=== PATIENT | male | born 1975 | race Caucasian/White ===

== ENCOUNTER 2024-11-09 16:32 | Emergency (ER) | payer BC, SELFPAY ==
--- OUTSIDE RECORDS SUMMARY | 2024-10-07 07:33 | XMS_ITS | Encounter Summary ---
Author Organization [address] [address] Care Team Providers Care Cooker Casing Name Role Phone Sha Pedroza MD Primary Care Provider [phone] Reason for Visit * Rehab Therapy Cardiac Therapy (Routine) - Authorized Specialty Diagnoses / Procedures Referred By Nicole streeter Referred To Contact CARDIAC REHAB Diagnoses Chronic systolic heart failure (H) [address] [address] Phone: tel: Referral ID Status Reason Start Date Expiration Date V isits Requested Visits Authorized [id number] Authorized 10/03/2024 03/18/2025 36 36 Encounter Details Date Type Department Care Team (Latest Contact Info) Description 10/07/2024 7:33 AM CDT - 10/07/2024 11:59 PM CDT Hospital Encounter [facility] [address] [phone] Xander Byrnes MD [address] [place] [phone] Discharge Disposition: Home or Self Care Social History Tobacco Use Types Packs/Day Years Used Date Smoking Tobacco: Never Assessed Sex and Gender Information Value Date Recorded Sex Assigned at Not on file Legal Sex Male 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 Gender Identity Not on file Sexual Orientation Not on file documented as of this encounter Plan of Treatment Upcoming Encounters Date Type Department Care Team (Late st Contact Info) Description 11/10/2024 1:00 PM CDT Appointment [facility] [address] [place] [phone] Xander Byrnes MD [address] [place] [phone] 11/12/2024 1:00 PM CDT Appointment [facility]monary [address] [phone] Xander Byrnes MD [address] [place] [phone] 11/14/2024 1:00 PM CDT Appointment [facility] [address] [phone] Xander Byrnes MD [address] [place] [phone] 11/19/2024 1:00 PM CDT Appointment [facility] [address] [phone] Xander Byrnes MD [address] [place] [phone] 11/21/2024 1:00 PM CDT Appointment [facility] [address] [phone] Xander Byrnes MD [address] [place] [phone] 11/24/2024 1:00 PM CDT Appointment [facility] [address] [phone] Xander Byrnes MD [address] [place] [phone] 11/26/2024 1:00 PM CDT Appointment [facility] [address] [phone] Xander Byrnes MD [address] [place] [phone] 11/28/2024 3:00 PM CDT Appointment [facility] [address] [phone] Xander Byrnes MD [address] [place] [phone] 12/01/2024 1:00 PM CDT Appointment [facility] [address] [phone] Xander Byrnes MD [address] [place] [phone] 12/03/2024 1:00 PM CDT Appointment [facility] [address] [phone] Xander Byrnes MD [address] [place] [phone] 12/08/2024 1:00 PM CDT Appointment [facility] [address] [phone] Xander Byrnes MD [address] [place] [phone] Scheduled Referrals Name Type Priority Associated Diagnoses Orde r Schedule Cardiac Rehab [employer] Admissions Representative Referral Referral Routine Chronic systolic heart failure (H) Ordered: 09/25/2024 documented as of this encounter Visit Diagnoses Not on filedocumented in this encounter Care Teams Cooker Casing Relationship Specialty [place] [address] [place] [address] PCP - General Family Medicine 10/03/24 documented as of this encounter
--- OUTSIDE RECORDS SUMMARY | 2024-10-07 14:15 | XMS_ITS | Encounter Summary ---
Author Organization [facility] Address [address] [place] [address] Care Team Providers Care Software Security Architect Name Role Phone Elsewhere, Pcp Primary Care Provider Unavailabl e Reason for Visit * Outpatient (Routine) - Closed Specialty Diagnoses / Procedures Referred By Contact Referred To Contact Cardiovascular Diseases / Cardiovascular Disease Diagnoses Arrest Cardiac (HCC) Yudith Childs PSheldonASheldon-Capo [address] [place] [phone] Phone: tel: fax: [facility] Referral ID Status Reason Start Date Expiration Date Visits Re quested Visits Authorized [id number] Closed 08/24/2024 02/23/2026 1 1 Encounter Details Date Type Department Care Team (Latest Contact Info) Description 10/07/2024 2:15 PM CDT Comprehensive Visit Department of Cardiovascular Medicine in [place], [place] [address] [place] [phone] Yudith Childs P.ASheldon-CSehldon [address] [place] [phone] Kendal Huff M.S., [facility] [address] [place] [phone] Arrest Cardiac (HCC) (Primary Dx) Social History Tobacco Use Types Packs/Day Years Used Date Smoking Tobacco: Former Cigarettes 1 29 1 - 2018 Smokeless Tobacco: Former Snuff Comments:Nicotine pouches Alcohol Use Standard Drinks/Week Comments Not Currently 0 (1 standard drink = 0.6 oz pur e alcohol) [facility] Utilities Answer Date Recorded In the past 12 months has e electric, gas, oil, or water company threatened to shut off services in your home? No 09/13/2024 Humiliation, Afraid, Rape, a nd Kick questionnaire Answer Date Recorded Within the last year, have y ou been afraid of your partner or ex-partner? Patient unable to answer 08/22/2024 Within the last year, have y ou been humiliated or emotionally abused in other ways by your partner or ex-partner? Patient unable to answer 08/22/2024 Within the last year, have y ou been kicked, hit, slapped, or otherwise physically hurt by your partner or ex-partner? Patient unable to answer 08/22/2024 Within the last year, have y ou been raped or forced to have any kind of sexual activity by your partner or ex-partner? Patient unable to answer 08/22/2024 Hunger Vital Sign Answer Date Recorded Within the past 12 months, y ou worried that your food would run out before you got the money to buy more. Never true 09/14/19 25 Within the past 12 months, t he food you bought just didn't last and you didn't have money to get more. Never true 09/13/2024 PRAPARE - Transportation Answer Date Re corded In the past 12 months, has l ack of transportation kept you from medical appointments or from getting medications? No 08/18 In the past 12 months, has l ack of transportation kept you from meetings, work, or from getting things needed for daily living? No 09/13/2024 Housing Stability Answer Date Recorded What is your living situation today? 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 REFERRING PROVIDER Yudith Childs P.A.-C. CHIEF COMPLAINT Personal history of cardiac arrest HISTORY OF PRESENT ILLNESS Alexis was kindly referred today by Yudith Childs P.A.-C. due to their personal history of cardiac arrest. Please see the referring provider's consult note for detailed information regarding work-up and diagnosis. Briefly, Alexis presented to the ED with minimal medical history by EMS from his working facility at [employer] on 08/21/2024. 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 By the time help responded he was found unresponsive on the floor. EMS was activated, he received bystander CPR, and he was eventually resuscitated after two rounds of epi and four shocks, as well as amiodarone. Transported to the emergency department in normal sinus rhythm with a solid blood pressure. EKG does not suggest STEMI nor cardiac ischemia. Echocardiogram revealed ejection fraction of 23%. He underwent coronary adonis ogram and revealed no flow-limiting disease. He underwent ICD placement on 08/26/2024. He was referred to genetics to explore a possible genetic etiology. Alexis attended today???s consultation unaccompanied to discuss the genetics and inheritance of heritable cardiomyopathies and arrhythmias as well as available genetic testing. FAMILY HISTORY A detailed family history was obtained from the patient and a pedigree was constructed. The pedigree will be saved as a scanned document and available for viewing under the Media tab of [employer]. Our risk assessment is based upon medical and family history information as provided by the patient, and may change in the future should new information be obtained. Not all families share or have detailed health information. With this in mind, we discussed that it can be difficult to interpret whether there may be family history relevant to genetic risk. This is a limitation in our assessment. Pedigree 10/07/2024 taken by Kendal Huff MS, [facility] Relevant Cardiovascular Summary The family history was non-contributory to today's discussion. There were other no reported sudden deaths, single-vehicle car accidents, drowning incidents, recurrent syncope, implantable devices, cardiomyopathy, arrhythmias, or other symptoms/events suggestive of heritable cardiovascular concerns.Please see complete pedigree for additional detail. Inherited cardiomyopathies and/or arrhythmia conditions are commonly known to have reduced penetrance. Due to reduced penetrance, the lack of a striking family history does not rule out the possibility of a genetic etiology for the patient's cardiac presentation. Consanguinity was denied. IMPRESSION/REPORT/PLAN Arrhythmias are irregular heartbeats that occur when the electrical signals of the heart don't workproperly. This can result in the heart beating too fast (tachycardia), too slow (bradycarida), or irregularly. These can be harmless. However, sometimes these irregular heartbeats can be symptomatic or clinically relevant. Arrhythmias include conditions and rhythms such as Atrial fibrillation, ventricular fibrillation, conduction block, and more ([facility], 202). Symptoms include, but are not limited to, fluttering in the chest, chest pain, and shortness of breath. There are many risk factors for arrhythmia, which includes coronary artery disease, high blood pressure, thyroid disease, sleep apnea, and more ([facility], 202). However, arrhthymias, like card iomyopathies, can sometimes be caused by a single gene predisposition. Genetic testing for these single genes is available for arrhythmias. Sudden Cardiac Arrest Sudden cardiac arrest is the abrupt loss of heart function, breathing and consciousness. This usually results from a problem with the heart's electrical system, disrupting th heart's pumping action and stopping blood flow to the body. The usual cause of sudden cardiac arrest is an abnormal heart rhythm, also called an arrhythmia. Arrhythmias can be brief and harmless, but some types can lead to sudden cardiac arrest ([facility], 202). The most common heart rhythm at the time of cardiac arrest is an arrhythmia in the lower chamber ofthe heart, called the ventricle. Rapid, erratic electrical impulses can cause the ventricles to quiver uselessly, instead of pumping blood (called a ventricle fibrillation). Cardiomyopathy, heart defects present at , and electrical problems in the heart can lead to sudden cardiac arrest ([facility], 2021). We discussed in detail the changes to his lifestyle due to this cardiac arrest and coping with these changes. Alexis expressed disappointment in not being able to do things without being tired and worn out. We discussed that it will take time to recover and to give himself mesha. I offered to send a referral to psychology, but he declined at this time. I stressed that he has been through a huge and life altering event; we will continue to take care of him to help get him back to feeling more normal. It is always ok to need additional help. Alexis expressed understanding and will reach out if he does want additional resources or referrals. GENETIC TESTING Clinical genetic testing is available commercially and risks, benefits, and limitations of genetic testing were discussed. There are active clinical trials for individuals with specific genotypes andcertain genes could impact the risk assessment of their cardiology team. Therefore, detection of a disease causing change in an established cardiomyopathy or arrhythmia related gene has the potentialto guide their medical management making genetic testing reasonable to pursue. We discussed the possible results that could be obtained from a targeted multi-gene panel including the following: Negative: meaning normal or no mutations are identified in the genes that are tested (sequenced). Anegative result decreases the likelihood but does not completely rule out an underlying hereditary etiology to the patient's cardiac disease. In this case, we would recommend that the patient follow-up with their care team for additional discussion and recommendations. Further genetic testing couldbe considered in the future as additional causative genes associated with cardiac disease are identified. Positive: meaning a mutation that is known to be associated with hereditary forms of cardiac disease is identified. We discussed the implications associated with a positive result. Specifically, a positive result could help solidify an explanation for the patient's clinical findings as well as impact how they are managed. If a causative mutation(s) is identified, the results will be discussed andsent to their care team to who would make recommendations on a plan of care. A positive result often has implications for other family members. We would advise the patient on risks to other family members if a positive result is obtained. Variant of uncertain significance (VUS): meaning a change in the DNA sequence of a particular gene was seen but it is not known if it explains the patient's clinical history. Any VUS identified wouldbe reviewed. If there is not an increased concern for the VUS contributing to the patient's symptoms, it was stressed that testing for relatives would not be indicated. Incidental findings: meaning a pathogenic variant(s) unrelated to the patient's symptoms or indication for testing was identified. This variant could have implications for their personal health or family planning. The genes assessed through testing are cardiac disease focused, but can sometimes be associated with other health complications. Genetic testing can also allow for a more cost-effective and informative means to screen family members. If a mutation is identified as the cause of the patient???s symptoms, other family members canbe tested for the mutation to determine whether they require increased cardiac screening. If the familial mutation is not identified in another family member, ongoing clinical screening would not be necessary. Approximate cost and insurance coverage of genetic testing was discussed. [facility] is not involved in the billing for the genetic testing. [employer] is owned by [employer] and the patient may see [facility] listed on their EOB or in communications for their genetic testing. We recommend all questions and correspondence be directed to [facility]'s billing department. All patients in the [place] will receive an email and/or text describing the insurance billing process. An electronic copy of their billing card can be viewed via this link. When a patient's bill is determined to be over $100, each patient will receive an automated call advising them to contact their dedicated billing team with any questions. Patients whose out-of pocket responsibility is determined to be over $250 will receive a live call from [employer]s team to discuss available options which include financial assistance eligibility or appeal opportunities. [employer] billing specialists are happy to work with patients who have any questions or concerns. They can simply call their billing team at [phone] Sunday through Sunday, 5:00 am to 5:00 pm [place], or email anytime at [email or web address] FAMILY SCREENING Given the unclear etiology of Alexis's clinical presentation, any cardiac screening recommendationsfor the patient and their family should be directed by their managing physicians. Anyone experiencing any cardiovascular symptoms should see a automation test developer for further evaluation. This evaluation mayinclude, but is not limited to, an ECG, echocardiogram and stress test. Family members should continue with screening as recommended by their providers. We would be happy to see family members here at [facility] or are available to identify resources closer to the individual's residence. PLAN Alexis elected to pursue the Comprehensive Cardiomyopathy & Arrhythmia Panel through [facility]. Alexis will complete a blood draw today. Results will become available approximately 2-4 weeks from the release of testing. The patient will be contacted with their test results when they become available. Screening and management recommendations will be made for the patient andtheir family members at the time of results disclosure. It was a pleasure to meet Alexis. Patient expressed understanding of this information. The impression and plan were discussed in detail. There were no apparent barriers to learning or understanding. Questions were answered to the best of my ability. I remain available to answer any questions in thefuture via portal message or by phone at . Total Time: 57 minutes documented in this encounter Plan of Treatment Upcoming Encounters Date Type Department Care Team (Late st Contact Info) Description 11/18/2024 8:30 AM CDT Appointment Department of Cardiovascular Diseases in [place], [place] [address] [place] [address] Mark Mckeon M.D. [address] [place] [phone] 11/28/2024 9:30 AM CDT Appointment Department of Cardiovascular Diseases in [place], [place] [address] [place] [phone] Xander Byrnes M.D. [address] [place] [phone] documented as of this encounter Results * [id number] [facility] Comprehensive Panel - Miscellaneous Test (10/08/2024 8:22 AM CDT) Test Name [facility] 10/08/2024 8:22 AM CDT HLS Result Specimen sent out; results to follow DEFAULT 10/08/2024 8:22 AM CDT HLS Blood (Blood, Venous) 10/08/2024 8:22 AM CDT 10/08/2024 8:22 AM CDT us Steve Hoyos M.D. LAB MISC ORDERABLES Final Res ult [facility] [address] [place] [address], [place] HLS [facility] [address] [place] [address] documented in this encounter Visit Diagnoses Diagnosis Arrest Cardiac (HCC)- Primary documented in this encounter Care Teams Software Security Architect Relationship Specialty Start Date End Date Elsewhere, Pcp PCP - General Internal Medicine 08/21/24 documented as of this encounter
--- OUTSIDE RECORDS SUMMARY | 2024-10-07 15:11 | XMS_ITS | Encounter Summary ---
Author Organization [facility] Address [address] [place] [address] Care Team Providers Care Beck Tender Name Role Phone Elsewhere, Pcp Primary Care Provider Unavailabl e Encounter Details Date Type Department Care Team (Latest Contact Info) Description 10/07/2024 3:11 PM CDT - 10/07/2024 11:59 PM CDT Hospital Encounter Department of Laboratory Medicine and Pathology, [facility] in [place], [place] [address] [place] [address] Steve Hoyos M.D. [address] [place] [address] Arrest Cardiac (HCC) Discharge Disposition: Home or Self Care Social History Tobacco Use Types Packs/Day Years Used Date Smoking Tobacco: Former Cigarettes 1 2018 Smokeless Tobacco: Former Snuff Comments:Nicotine pouches Alcohol Use Standard Drinks/Week Comments Not Currently 0 (1 standard drink = 0.6 oz pur e alcohol) [facility] Utilities Answer Date Recorded In the past 12 months has e [employer], oil, or water [employer] threatened to shut off services in your [...] your living situation today? I have a [facility] place to live 09/13/2024 Sex and Gender Information Value Date Recorded Sex Assigned at Male 09/13/2024 9:29 AM CDT Legal Sex Male 4:52 PM MANAGER PET Gender Identity Male 09/13/2024 9:29 AM CDT Sexual Orientation Straight 09/13/2024 9: 29 AM CDT documented as of this encounter Medications at Time of Discharge aspirin 81 mg chewable tablet Chew 1 tablet (81 mg total) daily. 08/28/2024 atorvastatin (Lipitor) 40 mg tablet Take 1 tablet (40 mg total) by mouth at bedtime. 30 tablet 11 08/27/2024 08/27/2025 carvediloL (Coreg) 6.25 mg tablet Take 1 tablet (6.25 mg total) by mouth 2 (two) times a day with meals. 60 tablet 08/27/2024 08/27/2025 empagliflozin (Jardiance) 10 mg tabletIndications :Arrest Cardiac (HCC),Congestive Heart Failure Ejection Fraction Less Than 35 Percent And [place] Heart [employer] Class 2-3 (HCC) Take 1 tablet (10 mg total) by mouth daily before morning meal. 30 tablet 11 08/28/2024 08/28/2025 lisinopriL 20 mg tablet Take 20 mg by mouth daily. 02/22/2024 sildenafiL (Viagra) 100 mg tablet Take 100 mg by mouth at bedtime as needed. 02/22/2024 spironolactone (Aldactone) 25 mg tablet Take 1 tablet (25 mg total) by mouth daily. 30 tablet 08/28/2024 08/28/2025 documented as of this encounter Plan of Treatment Upcoming Encounters Date Type Department Care Team (Late st Contact Info) Description 11/18/2024 8:30 AM CDT Appointment Department of Cardiovascular Diseases in [place], [place] [address] [place] [address] Mark Mckeon M.D. [address] [place] [phone] 11/28/2024 9:30 AM CDT Appointment Department of Cardiovascular Diseases in [place], [place] [address] [place] [address] Xander Byrnes M.D. [address] [place] [address] documented as of this encounter Procedures Procedure Name Priority Date/Time Associated Diagnosis Comments MISCELLANEOUS SENT OUT LAB TEST Routine 10/08/2024 8:22 AM CDT Arrest Cardiac (HCC) [employer] Routine 10/07/2024 3:29 PM CDT documented in this encounter Results * [id number] [employer] Arrhythmia and Cardiomyopathy Comprehensive Panel - Miscellaneous Test (10/08/2024 8:22 AM CDT) Test Name [employer] Arrhythmia and Cardiomyopathy Co 10/08/2024 8:22 AM CDT HLS Result Specimen sent out; results to follow DEFAULT 10/08/2024 8:22 AM CDT HLS Blood (Blood, Venous) 10/08/2024 8:22 AM CDT 10/08/2024 8:22 AM CDT us Steve Hoyos M.D. LAB MISC ORDERABLES Final Res ult Performing Organization Address City/[facility]/ZIP Co de Phone Number [facility] [address] [place] [address], [place] HLS [facility] [address] [place] [address] * Misc. [employer] Sent Out Lab (10/07/2024 3:29 PM CDT) Test Name Fabián Arrhythmia and Cardiomyopathy Co 10/08/2024 8:22 AM CDT INVC Result SEE COMMENT 10/20/2024 9:01 AM CDT INVC Comment: For final report, select Lab-Send Out Lab Results hyperlink below. 10/07/2024 3:29 PM CDT 10/08/2024 10:21 AM CDT us Steve Hoyos M.D. LAB MISC ORDERABLES Final Res ult Performing Organization Address [facility]/ZIP Co de Phone Number [employer] [address] [place] [phone], [facility] [employer] [address] [place] [address] documented in this encounter Visit Diagnoses Diagnosis Arrest Cardiac (HCC) documented in this encounter Care Teams Beck Tender Relationship Specialty Start Date End Date Elsewhere, Pcp PCP - General Internal Medicine 08/21/24 documented as of this encounter
--- OUTSIDE RECORDS SUMMARY | 2024-10-10 14:41 | XMS_ITS | Encounter Summary ---
Author Organization [address] [address] Care Team Providers Care Employment Office Clerk Name Role Phone Sha Pedroza MD Primary Care Provider [phone] Reason for Visit * Rehab Therapy Cardiac Therapy (Routine) - Authorized Specialty Diagnoses / Procedures Referred By Nicole streeter Referred To Contact CARDIAC REHAB Diagnoses Chronic systolic heart failure (H) [address] [address] Phone: tel: Referral ID Status Reason Start Date Expiration Date V isits Requested Visits Authorized [id number] Authorized 10/03/2024 03/18/2025 36 36 Encounter Details Date Type Department Care Team (Latest Contact Info) Description 10/10/2024 2:41 PM CDT - 10/10/2024 11:59 PM CDT Hospital Encounter [facility] Pul[facility] Rehabilitation [address] [address] Xander Byrnes MD [address] [place] [phone] Discharge Disposition: Home or Self Care Social History Tobacco Use Types Packs/Day Years Used Date Smoking Tobacco: Never Assessed Sex and Gender Information Value Date Recorded Sex Assigned at Not on file 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 Gender Identity Not on file Sexual Orientation Not on file documented as of this encounter Plan of Treatment Upcoming Encounters Date Type Department Care Team (Late st Contact Info) Description 11/10/2024 1:00 PM CDT Appointment [facility] Rehabilitation [address] [place] [phone] Xander Byrnes MD [address] [place] [phone] 11/12/2024 1:00 PM CDT Appointment [facility] Cardiac and Pulmonary [address] [address] Xander Byrnes MD [address] [place] [phone] 11/14/2024 1:00 PM CDT Appointment [facility] Cardiac [facility] Pulmonary Rehabilitation [address] [address] Xander Byrnes MD [address] [place] [phone] 11/19/2024 1:00 PM CDT Appointment [facility] Rehabilitation [address] [address] Xander Byrnes MD [address] [place] [phone] 11/21/2024 1:00 PM CDT Appointment [facility] Card[facility] Pulmonary Rehabilitation [address] [address] Xander Byrnes MD [address] [place] [phone] 11/24/2024 1:00 PM CDT Appointment [facility] Card[facility] Pulmonary Rehabilitation [address] [address] Xander Byrnes MD [address] [place] [phone] 11/26/2024 1:00 PM CDT Appointment [facility] [address] [address] Xander Byrnes MD [address] [place] [phone] 11/28/2024 3:00 PM CDT Appointment [facility] Pul[facility] Rehabilitation [address] [address] Xander Byrnes MD [address] [place] [phone] 12/01/2024 1:00 PM CDT Appointment [facility] [address] [address] Xander Byrnes MD [address] [place] [phone] 12/03/2024 1:00 PM CDT Appointment [facility] [address] [address] Xander Byrnes MD [address] [place] [phone] 12/08/2024 1:00 PM CDT Appointment [facility] [address] [address] Xander Byrnes MD [address] [place] [phone] documented as of this encounter Visit Diagnoses Not on filedocumented in this encounter Care Teams Employment Office Clerk Relationship Specialty [place] [address] [place] [address] PCP - General Family Medicine 10/03/24 documented as of this encounter
--- OUTSIDE RECORDS SUMMARY | 2024-10-13 13:45 | XMS_ITS | Encounter Summary ---
Author Organization [address] [address] Care Team Providers Care Display Decorator Name Role Phone Sha Pedroza MD Primary Care Provider [phone] Reason for Visit * Rehab Therapy Cardiac Therapy (Routine) - Authorized Specialty Diagnoses / Procedures Referred By Nicole streeter Referred To Contact CARDIAC REHAB Diagnoses Chronic systolic heart failure (H) [address] [address] Phone: tel: Referral ID Status Reason Start Date Expiration Date V isits Requested Visits Authorized [id number] Authorized 10/03/2024 03/18/2025 36 36 Encounter Details Date Type Department Care Team (Latest Contact Info) Description 10/13/2024 1:45 PM CDT - 10/13/2024 11:59 PM CDT Hospital Encounter [facility] Cardiac and Pulmonary Rehabilitation [address] [address] Xander Byrnes MD [address] [place] [phone] Discharge Disposition: Home or Self Care Social History Tobacco Use Types Packs/Day Years Used Date Smoking Tobacco: Never Assessed Sex and Gender Information Value Date Recorded Sex Assigned at Not on file 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 Gender Identity Not on file Sexual Orientation Not on file documented as of this encounter Plan of Treatment Upcoming Encounters Date Type Department Care Team (Late st Contact Info) Description 11/10/2024 1:00 PM CDT Appointment [facility] Rehabilitation [address] [place] [phone] Xander Byrnes MD [address] [place] [phone] 11/12/2024 1:00 PM CDT Appointment [facility] Cardiac and Pulmonary [address] [address] Xander Byrnes MD [address] [place] [phone] 11/14/2024 1:00 PM CDT Appointment [facility] Cardiac [facility] Pulmonary Rehabilitation [address] [address] Xander Byrnes MD [address] [place] [phone] 11/19/2024 1:00 PM CDT Appointment [facility] Rehabilitation [address] [address] Xander Byrnes MD [address] [place] [phone] 11/21/2024 1:00 PM CDT Appointment [facility] Card[facility] Pulmonary Rehabilitation [address] [address] Xander Byrnes MD [address] [place] [phone] 11/24/2024 1:00 PM CDT Appointment [facility] Card[facility] Pulmonary Rehabilitation [address] [address] Xander Byrnes MD [address] [place] [phone] 11/26/2024 1:00 PM CDT Appointment [facility] [address] [address] Xander Byrnes MD [address] [place] [phone] 11/28/2024 3:00 PM CDT Appointment [facility] Pul[facility] Rehabilitation [address] [address] Xander Byrnes MD [address] [place] [phone] 12/01/2024 1:00 PM CDT Appointment [facility] [address] [phone] Xander Byrnes MD [address] [place] [phone] 12/03/2024 1:00 PM CDT Appointment [facility] [address] [phone] Xander Byrnes MD [address] [place] [phone] 12/08/2024 1:00 PM CDT Appointment [facility] [address] [address] Xander Byrnes MD [address] [place] [phone] documented as of this encounter Visit Diagnoses Not on filedocumented in this encounter Care Teams Display Decorator Relationship Specialty [place] [address] [place] [address] PCP - General Family Medicine 10/03/24 documented as of this encounter
--- OUTSIDE RECORDS SUMMARY | 2024-10-15 13:47 | XMS_ITS | Encounter Summary ---
Author Organization [address] [address] Care Team Providers Care Patternmaker Helper Name Role Phone Sha Pedroza MD Primary Care Provider [phone] Reason for Visit * Rehab Therapy Cardiac Therapy (Routine) - Authorized Specialty Diagnoses / Procedures Referred By Nicole streeter Referred To Contact CARDIAC REHAB Diagnoses Chronic systolic heart failure (H) [address] [address] Phone: tel: Referral ID Status Reason Start Date Expiration Date V isits Requested Visits Authorized [id number] Authorized 10/03/2024 03/18/2025 36 36 Encounter Details Date Type Department Care Team (Latest Contact Info) Description 10/15/2024 1:47 PM CDT - 10/15/2024 11:59 PM CDT Hospital Encounter [facility] Card[facility] Pulmonary Rehabilitation [address] [address] Xander Byrnes MD [address] [place] [phone] Discharge Disposition: Home or Self Care Social History Tobacco Use Types Packs/Day Years Used Date Smoking Tobacco: Never Assessed Sex and Gender Information Value Date Recorded Sex Assigned at Not on file 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 Gender Identity Not on file Sexual Orientation Not on file documented as of this encounter Plan of Treatment Upcoming Encounters Date Type Department Care Team (Late st Contact Info) Description 11/10/2024 1:00 PM CDT Appointment [facility] [address] [place] [phone] Xander Byrnes MD [address] [place] [phone] 11/12/2024 1:00 PM CDT Appointment [facility] Cardiac and Pulmonary [address] [address] Xander Byrnes MD [address] [place] [phone] 11/14/2024 1:00 PM CDT Appointment [facility] Cardiac [facility] Pulmonary Rehabilitation [address] [address] Xander Byrnes MD [address] [place] [phone] 11/19/2024 1:00 PM CDT Appointment [facility] [address] [address] Xander Byrnes MD [address] [place] [phone] 11/21/2024 1:00 PM CDT Appointment [facility] Card[facility] Pulmonary Rehabilitation [address] [address] Xander Byrnes MD [address] [place] [phone] 11/24/2024 1:00 PM CDT Appointment [facility] Pulmonary Rehabilitation [address] [phone] Xander Byrnes MD [address] [place] [phone] 11/26/2024 1:00 PM CDT Appointment [facility] [address] [phone] Xander Byrnes MD [address] [place] [phone] 11/28/2024 3:00 PM CDT Appointment [facility] Card[facility] Pulmonary Rehabilitation [address] [phone] Xander Byrnes MD [address] [place] [phone] 12/01/2024 1:00 PM CDT Appointment [facility] [address] [address] Xander Byrnes MD [address] [place] [phone] 12/03/2024 1:00 PM CDT Appointment [facility] [address] [phone] Xander Byrnes MD [address] [place] [phone] 12/08/2024 1:00 PM CDT Appointment [facility] [address] [address] Xander Byrnes MD [address] [place] [phone] documented as of this encounter Visit Diagnoses Not on filedocumented in this encounter Care Teams Patternmaker Helper Relationship Specialty [place] [address] [place] [address] PCP - General Family Medicine 10/03/24 documented as of this encounter
--- OUTSIDE RECORDS SUMMARY | 2024-10-17 13:38 | XMS_ITS | Encounter Summary ---
Author Organization [address] [address] Care Team Providers Care Human Resources Benefits Assistant Name Role Phone Sha Pedroza MD Primary Care Provider [phone] Reason for Visit * Rehab Therapy Cardiac Therapy (Routine) - Authorized Specialty Diagnoses / Procedures Referred By Nicole streeter Referred To Contact CARDIAC REHAB Diagnoses Chronic systolic heart failure (H) [address] [address] Phone: tel: Referral ID Status Reason Start Date Expiration Date V isits Requested Visits Authorized [id number] Authorized 10/03/2024 03/18/2025 36 36 Encounter Details Date Type Department Care Team (Latest Contact Info) Description 10/17/2024 1:38 PM CDT - 10/17/2024 11:59 PM CDT Hospital Encounter [facility] Pulmonary Rehabilitation [address] [address] Xander Byrnes MD [address] [place] [phone] Discharge Disposition: Home or Self Care Social History Tobacco Use Types Packs/Day Years Used Date Smoking Tobacco: Never Assessed Sex and Gender Information Value Date Recorded Sex Assigned at Not on file 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 Gender Identity Not on file Sexual Orientation Not on file documented as of this encounter Plan of Treatment Upcoming Encounters Date Type Department Care Team (Late st Contact Info) Description 11/10/2024 1:00 PM CDT Appointment [facility] Rehabilitation [address] [place] [phone] Xander Byrnes MD [address] [place] [phone] 11/12/2024 1:00 PM CDT Appointment [facility] Cardiac and Pulmonary [address] [address] Xander Byrnes MD [address] [place] [phone] 11/14/2024 1:00 PM CDT Appointment [facility] Pul[facility] Rehabilitation [address] [address] Xander Byrnes MD [address] [place] [phone] 11/19/2024 1:00 PM CDT Appointment [facility] [address] [address] Xander Byrnes MD [address] [place] [phone] 11/21/2024 1:00 PM CDT Appointment [facility] Card[facility] Pul[facility] Rehabilitation [address] [address] Xander Byrnes MD [address] [place] [phone] 11/24/2024 1:00 PM CDT Appointment [facility] Rehabilitation [address] [address] Xander Byrnes MD [address] [place] [phone] 11/26/2024 1:00 PM CDT Appointment [facility] [address] [address] Xander Byrnes MD [address] [place] [phone] 11/28/2024 3:00 PM CDT Appointment [facility] Rehabilitation [address] [address] Xander Byrnes MD [address] [place] [phone] 12/01/2024 1:00 PM CDT Appointment [facility] [address] [address] Xander Byrnes MD [address] [place] [phone] 12/03/2024 1:00 PM CDT Appointment [facility] [address] [phone] Xander Byrnes MD [address] [place] [phone] 12/08/2024 1:00 PM CDT Appointment [facility] [address] [address] Xander Byrnes MD [address] [place] [phone] documented as of this encounter Visit Diagnoses Not on filedocumented in this encounter Care Teams Human Resources Benefits Assistant Relationship Specialty [place] [address] [place] [address] PCP - General Family Medicine 10/03/24 documented as of this encounter
--- OUTSIDE RECORDS SUMMARY | 2024-10-20 12:44 | XMS_ITS | Encounter Summary ---
Author Organization [address] [address] Care Team Providers Care Special Service Representative Name Role Phone Sha Pedroza MD Primary Care Provider [phone] Reason for Visit * Rehab Therapy Cardiac Therapy (Routine) - Authorized Specialty Diagnoses / Procedures Referred By Nicole streeter Referred To Contact CARDIAC REHAB Diagnoses Chronic systolic heart failure (H) [address] [address] Phone: tel: Referral ID Status Reason Start Date Expiration Date V isits Requested Visits Authorized [id number] Authorized 10/03/2024 03/18/2025 36 36 Encounter Details Date Type Department Care Team (Latest Contact Info) Description 10/20/2024 12:44 PM CDT - 10/20/2024 11:59 PM CDT Hospital Encounter [facility] Cardiac and Pulmonary Rehabilitation [address] [phone] Xander Byrnes MD [address] [place] [phone] Discharge Disposition: Home or Self Care Social History Tobacco Use Types Packs/Day Years Used Date Smoking Tobacco: Never Assessed Sex and Gender Information Value Date Recorded Sex Assigned at Not on file 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[employer] Gender Identity Not on file Sexual Orientation Not on file documented as of this encounter Plan of Treatment Upcoming Encounters Date Type Department Care Team (Late st Contact Info) Description 11/10/2024 1:00 PM CDT Appointment [facility] Cardiac and Pulmonary Rehabilitation [address] [place] [phone] Xander Byrnes MD [address] [place] [phone] 11/12/2024 1:00 PM CDT Appointment [facility] Cardiac and Pulmonary [address] [address] Xander Byrnes MD [address] [place] [phone] 11/14/2024 1:00 PM CDT Appointment [facility] Cardiac and Pulmonary Rehabilitation [address] [phone] Xander yBrnes MD [address] [place] [phone] 11/19/2024 1:00 PM CDT Appointment [facility] Cardiac and Pulmonary Rehabilitation [address] [phone] Xander Byrnes MD [address] [place] [phone] 11/21/2024 1:00 PM CDT Appointment [facility] Cardiac and Pulmonary Rehabilitation [address] [phone] Xander Byrnes MD [address] [place] [phone] 11/24/2024 1:00 PM CDT Appointment [facility] Cardiac and Pulmonary Rehabilitation [address] [phone] Xadner Byrnes MD [address] [place] [phone] 11/26/2024 1:00 PM CDT Appointment [facility] Cardiac and Pulmonary Rehabilitation [address] [phone] Xander Byrnes MD [address] [place] [phone] 11/28/2024 3:00 PM CDT Appointment [facility] Cardiac and Pulmonary Rehabilitation [address] [phone] Xander Brynes MD [address] [place] [phone] 12/01/2024 1:00 PM CDT Appointment [facility] Cardiac and Pulmonary Rehabilitation [address] [phone] Xander Byrnes MD [address] [place] [phone] 12/03/2024 1:00 PM CDT Appointment [facility] Cardiac and Pulmonary Rehabilitation [address] [phone] Xander Byrnes MD [address] [place] [phone] 12/08/2024 1:00 PM CDT Appointment [facility] Cardiac and Pulmonary Rehabilitation [address] [phone] Xander Byrnes MD [address] [place] [phone] documented as of this encounter Visit Diagnoses Not on filedocumented in this encounter Care Teams Special Service Representative Relationship Specialty [place] [id number] [place] [address] PCP - General Family Medicine 10/03/24 documented as of this encounter
--- OUTSIDE RECORDS SUMMARY | 2024-10-21 10:04 | XMS_ITS | Encounter Summary ---
Author Organization [facility] Address [address] [place] [address] Care Team Providers Care Sock Drier Name Role Phone Elsewhere, Pcp Primary Care Provider Unavailabl e Encounter Details Date Type Department Care Team (Latest Contact Info) Description 10/21/2024 10:04 AM CDT - 10/21/2024 11:59 PM CDT Hospital Encounter Department of Cardiovascular Diseases in [place], [place] [address] [place] [address] Xander Byrnes M.D. [address] [place] [phone] Arrest Cardiac (HCC) Discharge Disposition: Home or Self Care Social History Tobacco Use Types Packs/Day Years Used Date Smoking Tobacco: Former Cigarettes 1 2018 Smokeless Tobacco: Former Snuff Comments:Nicotine pouches Alcohol Use Standard Drinks/Week Comments Not Currently 0 (1 standard drink = 0.6 oz pur e alcohol) [facility] Utilities Answer Date Recorded In the past 12 months has e [employer], gas, oil, or water [employer] threatened to shut off services in your [...] living situation today? 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 [address] [place] [phone] 11/28/2024 9:30 AM CDT Appointment Department of Cardiovascular Diseases in [place], [place] [address] [place] [phone] Xander Byrnes M.D. [address] [place] [phone] documented as of this encounter Procedures Procedure Name Priority Date/Time Associated Diagnosis Comments ICD SINGLE CHAMBER INTERROGATION WITH PROGRAMMING Routine 10/21/2024 1:17 PM CDT Arrest Cardiac (HCC) documented in this encounter Results * ICD SINGLE CHAMBER INTERROGATION WITH PROGRAMMING (10/21/2024 1:17 PM CDT) Date Time Interrogation Session [id number] Hop Skip [facility] Implantable Pulse Generator Exterior Door Installer Medtronic Hop Skip [facility] Implantable Pulse Generator Type Defibrillator Hop Skip [facility] Implantable Pulse Generator Model [place] XT VR [id number] Hop Skip [facility] Implantable Pulse Generator Serial Number [id number] Hop Skip [facility] Implantable Pulse Generator Implant Date 20240826 Hop Skip [facility] Battery Voltage 3.090 FOUN [facility] Battery SNOWMAKER Trigger 2.800 Hop Skip [facility] SYSTEM Battery Status OK [facility] Capacitor Charge Time 0.000 [facility] Maurice Statistic RV Percent Paced 0.02 [facility] Atrial Tachy Statistic AT/AF [place] Percent 0.00 [facility] Lead Channel Sensing Intrinsic Amplitude 4.500 [facility] Lead Channel Setting Sensing Sensitivity 0.30 [facility] Lead Channel Impedance Value 342 [facility] Lead Channel Pacing Threshold Amplitude 1.250 [facility] Lead Channel Pacing Threshold Pulse Width 0.4 [facility] Lead Channel Measurements Date and Time 20241021 [facility] Lead Channel Setting Pacing Amplitude 3.500 [facility] Lead Channel Setting Pacing Pulse Width 0.4 [facility] Maurice Setting Mode (NBG Code) VVI [facility] Maurice Setting Lower Rate Limit 40 [facility] Therapy Statistic Recent Shocks Aborted 0 [facility] Therapy Statistic Recent ATP Delivered 0 [facility] Murj RV HV Impedance 73 [facility] Zone Setting Type Category VF F[facility] Murj Rate 1 188 [facility] Murj Therapies 3 x iATP, 40J, 40J, 40J, 40J, 40J, 40J [facility] Zone Setting Status On [facility] Murj Zone ID 0 [facility] ION [facility] Zone Setting Type Category FVT [facility] Zone Setting Status Off [facility] Murj Zone ID 1 [facility] Zone Setting Type Category VT [facility] Zone Setting Status Off [facility] Murj Zone ID 2 [facility] Zone Setting Type Category VT Monitor F[facility] Murj Rate 1 150 [facility] Zone Setting Status Monitor [facility] Murj Zone ID 3 [facility] Implantable Lead Exterior Door Installer Medtronic [facility] Implantable Lead Model [id number] Sprint Quattro Secure S [facility] Implantable Lead Location Right Ventricle [facility] Implantable Lead Connection Status Connected [facility] Implantable Lead Serial Number [id number] [facility] Implantable Lead Implant Date 20240826 [facility] Implantable Lead Special Function Lead length: 62.00 cm [facility] Anatomical Region Laterality Modality Other 10/22/2024 7:55 AM CDT Impressions 10/22/2024 7:55 AM CDT Encounter Impression: Title: Pre-MRI Check * Pre-MRI device interrogation performed to assess ICD. CXR approved by Dr. Byrnes * Sensing, impedance and thresholds reviewed and tested, stable * Underlying rhythm was reviewed, VS at 71 bpm * Histogram: Rates 40-120 bpm * Optivol level: has showed a trend up at a fluid index of about 40, patient denied heart failure symptoms. * No observed device anomalies pre-MRI * Device reprogrammed: Yes, MRI SureScan turned on with device mode adjusted to OVO, disabling ICD therapies. MANPREET Jessica from stress lab monitoring patient. Title: Post-MRI Check * Post-MRI device interrogation performed. Patient tolerated MRI well. * Sensing, impedance and thresholds reviewed and tested, stable * Confirmed pre-MRI device settings * No observed device anomalies post-MRI * Device reprogrammed: Yes, MRI SureScan turned OFF, resuming ICD therapies and all settings. Title: Sinus Tachycardia * 5 episodes with Stored EGMs suggestive of Sinus Tachycardia at 154-167 bpm Plan: Patient will be seen in clinic for 3 month s/p ICD in November This patient underwent device interrogation. I agree that the device interrogation was medically indicated to provide appropriate care and continue routine device interrogations as indicated. Encounter Summary: This report includes 1 transmission that was received on 2024-10-21. Battery, lead impedance, sensing amplitude and pacing threshold data was reviewed. Narrative Procedure Note Xander Byrnes M.D. - 10/22/2024 IMPRESSION: Encounter Impression: Title: Pre-MRI Check * Pre-MRI device interrogation performed to assess ICD. CXR approved byDr. Byrnes * Sensing, impedance and thresholds reviewed and tested, stable * Underlying rhythm was reviewed, VS at 71 bpm * Histogram: Rates 40-120 bpm * Optivol level: has showed a trend up at a fluid index of about 40,patient denied heart failure symptoms. * No observed device anomalies pre-MRI * Device reprogrammed: Yes, MRI SureScan turned on with device modeadjusted to OVO, disabling ICD therapies. MANPREET Jessica from stress labmonitoring patient. Title: Post-MRI Check * Post-MRI device interrogation performed. Patient tolerated MRI well. * Sensing, impedance and thresholds reviewed and tested, stable * Confirmed pre-MRI device settings * No observed device anomalies post-MRI * Device reprogrammed: Yes, MRI SureScan turned OFF, resuming ICDtherapies and all settings. Title: Sinus Tachycardia * 5 episodes with Stored EGMs suggestive of Sinus Tachycardia at 154-167bpm Plan: Patient will be seen in clinic for 3 month s/p ICD in November This patient underwent device interrogation. I agree that the deviceinterrogation was medically indicated to provide appropriate care andcontinue routine device interrogations as indicated. Encounter Summary: This report includes 1 transmission that was receivedon 2024-10-21. Battery, lead impedance, sensing amplitude and pacingthreshold data was reviewed. Xander Byrnes M.D. CV IMPLANTABLE CARDIAC DEVIC E Final Result documented in this encounter Visit Diagnoses Diagnosis Arrest Cardiac (HCC) documented in this encounter Care Teams Sock Drier Relationship Specialty Start Date End Date Elsewhere, Pcp PCP - General Internal Medicine 08/21/24 documented as of this encounter
--- OUTSIDE RECORDS SUMMARY | 2024-10-21 10:04 | XMS_ITS | Encounter Summary ---
Author Organization [facility] Address [address] [place] [address] Care Team Providers Care Yarn Bleaching Machine Operator Name Role Phone Elsewhere, Pcp Primary Care Provider Unavailabl e Reason for Referral * MRI/CAT/PET Scan (Routine) - Closed Specialty Diagnoses / Procedures Referred By Contac t Referred To Contact Radiology Diagnoses Arrest Cardiac (HCC) Congestive Heart Failure Ejection Fraction Less Than 35 Percent And [place] [employer] Class 2-3 (HCC) Procedures MR Cardiac without and with IV Contrast Taina Owens P.ASheldon-Capo [address] [place] [phone] Phone: tel: fax: [facility] Referral ID Status Reason Start Date Expiration Date Visits Re quested Visits Authorized [id number] Closed 08/27/2024 11/27/2025 1 1 Reason for Visit * MRI/CAT/PET Scan (Routine) - Closed Specialty Diagnoses / Procedures Referred By Contac t Referred To Contact Radiology Diagnoses Arrest Cardiac (HCC) Congestive Heart Failure Ejection Fraction Less Than 35 Percent And [place] [employer] Class 2-3 (HCC) Procedures MR Cardiac without and with IV Contrast Taina Owens P.A.-C. [address] [place] [phone] Phone: tel: fax: [facility] Referral ID Status Reason Start Date Expiration Date Visits Re quested Visits Authorized [id number] Closed 08/27/2024 11/27/2025 1 1 Encounter Details Date Type Department Care Team (Latest Contact Info) Description 10/21/2024 10:04 AM CDT - 10/21/2024 11:59 PM CDT Hospital Encounter Department of Radiology, [facility], in [place], [place] [address] [place] [phone] Taina Owens P.A.-C. [address] [place] [phone] Arrest Cardiac (HCC); Congestive Heart Failure Ejection Fraction Less Than 35 Percent And [place] [employer] Class 2-3 (HCC) Discharge Disposition: Home or Self Care Social History Tobacco Use Types Packs/Day Years Used Date Smoking Tobacco: Former Cigarettes 29 - 2018 Smokeless Tobacco: Former Snuff Comments:Nicotine pouches Alcohol Use Standard Drinks/Week Comments Not Currently 0 (1 standard drink = 0.6 oz pur e alcohol) [facility] Utilities Answer Date Recorded In the past 12 months has [employer], gas, oil, or water [employer] threatened to shut off services in your [...] your living situation today? 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 30 tablet 08/28/2024 08/28/2025 lisinopriL 20 mg tablet Take 20 mg by mouth daily. 02/22/2024 sildenafiL (Viagra) 100 mg tablet Take 100 mg by mouth at bedtime as needed. 02/22/2024 spironolactone (Aldactone) 25 mg tablet Take 1 tablet (25 mg total) by mouth daily. 30 tablet 11 08/28/2024 08/28/2025 documented as of this encounter Plan of Treatment Upcoming Encounters Date Type Department Care Team (Late st Contact Info) Description 11/18/2024 8:30 AM CDT Appointment Department of Cardiovascular Diseases in [place], [place] [address] [place] [phone] Mark Mckeon M.D. [address] [facility] [place] [phone] 11/28/2024 9:30 AM CDT Appointment Department of Cardiovascular Diseases in [place], [place] [address] [place] [phone] Xander Byrnes M.D. [address] [place] [phone] documented as of this encounter Procedures Procedure Name Priority Date/Time Associated Diagnosis Comments MR CARDIAC WITHOUT AND WITH IV CONTRAST RAD - Routine (most inpatients and all outpatients) 10/21/2024 12:45 PM CDT Arrest Cardiac (HCC) Congestive Heart Failure Ejection Fraction Less Than 35 Percent And [place] [employer] Class 2-3 (HCC) documented in this encounter Results * MR Cardiac without and with IV Contrast (10/21/2024 12:45 PM CDT) Anatomical Region Laterality Modality Cardiac, Cardiovascular RST LOS, Thoracic ARZ LOS, Cardiovascular FLA LOS N/A Magnetic Resonance Impressions 10/21/2024 2:22 PM CDT 1. Mild nonvascular delayed enhancement in the basal interventricular septum. 2. Right ventricular systolic dysfunction (RVEF 40%). Narrative 10/21/2024 2:22 PM CDT EXAM: MR CARDIAC WITHOUT AND WITH IV CONTRAST COMPARISON: CT chest abdomen and pelvis 08/21/2024 FINDINGS: LEFT VENTRICLE: Normal left ventricular chamber size. Normal wall thickness. Generalized hypokinesis. Faint curvilinear mid myocardial delayed enhancement involving the basal anteroseptum (25/7). [employer] 1.5T scanner ([id number]). Normal [place] T2 values (average 49 ms measured in the septum). RIGHT VENTRICLE: Normal right ventricular chamber size. Reduced systolic function. ATRIA: Normal-sized left atrium. Normal-sized right atrium. ADDITIONAL FINDINGS: Since 08/21/2024, interval placement of a left chest wall ICD with single lead in the right ventricle. Renal cysts. MEASUREMENTS: Patient weight: 88 kg Patient height: 183 cm BSA: 2.1 m2 Series 33: LEFT VENTRICLE: LV End Diastolic Volume = 153mL; Index = 73mL/m2 (normal = 55-115) LV End Systolic Volume = 76mL; Index = 36mL/m2 (normal = 20-52) LV Stroke Volume = 78mL; Index = 37mL/m2 (normal = 29-69) LV Ejection Fraction = 51% (normal = 48-68) LV End Diastolic Mass = 111g; Index = 53g/m2 (normal = 35-71) Series 33 (short axis): RIGHT VENTRICLE: RV End Diastolic Volume = 201mL; Index = 95mL/m2 (normal = 59-127) RV End Systolic Volume = 121mL; Index = 57mL/m2 (normal = 21-65) RV Stroke Volume = 80mL; Index = 38mL/m2 (normal = 32-68) RV Ejection Fraction = 40% (normal = 42-66) Procedure Note Adrian Lucero M.D. - 10/21/2024 EXAM: MR CARDIAC WITHOUT AND WITH IV CONTRAST COMPARISON: CT chest abdomen and pelvis 08/21/2024 FINDINGS: LEFT VENTRICLE: Normal left ventricular chamber size. Normal wall thickness. Generalizedhypokinesis. Faint curvilinear mid myocardial delayed enhancement involving the basalanteroseptum (25/7). [employer] 1.5T scanner ([id number]). Normal [place] T2 values (average 49 msmeasured in the septum). RIGHT VENTRICLE: Normal right ventricular chamber size. Reduced systolic function. ATRIA: Normal-sized left atrium. Normal-sized right atrium. ADDITIONAL FINDINGS: Since 08/21/2024, interval placement of a left chest wall ICD with singlelead in the right ventricle. Renal cysts. MEASUREMENTS: Patient weight: 88 kg Patient height: 183 cm BSA: 2.1 m2 Series 33: LEFT VENTRICLE: LV End Diastolic Volume = 153mL; Index = 73mL/m2 (normal = 55-115) LV End Systolic Volume = 76mL; Index = 36mL/m2 (normal = 20-52) LV Stroke Volume = 78mL; Index = 37mL/m2 (normal = 29-69) LV Ejection Fraction = 51% (normal = 48-68) LV End Diastolic Mass = 111g; Index = 53g/m2 (normal = 35-71) Series 33 (short axis): RIGHT VENTRICLE: RV End Diastolic Volume = 201mL; Index = 95mL/m2 (normal = 59-127) RV End Systolic Volume = 121mL; Index = 57mL/m2 (normal = 21-65) RV Stroke Volume = 80mL; Index = 38mL/m2 (normal = 32-68) RV Ejection Fraction = 40% (normal = 42-66) IMPRESSION: 1. Mild nonvascular delayed enhancement in the basal interventricularseptum. 2. Right ventricular systolic dysfunction (RVEF 40%). us Taina Owens P.A.-C. IMG MRI PROCEDURES Sylwia santy Result documented in this encounter Visit Diagnoses Diagnosis Arrest Cardiac (HCC) Congestive Heart Failure Ejection Fraction Less Than 35 Percent And [place] Heart [employer] Class 2-3 (HCC) documented in this encounter Administered Medications Inactive Administered Medications - up to 3 most recent administrations Medication Order MAR Action Action Date Dose Rate Site gadobutrol injection 0.01-30 mL (Gadavist) 0.01-30 mL, intravenous, Once in imaging, contrast, Starting on Sun10/21/24 at 1208, For 1 dose, Imaging Protocol Orders, Dose per Radiant Medication Guidelines Intrathecal doses greater than 0.25 mL not recommended. Given 10/21/2024 11:39 AM CDT 18 mL sodium chloride (PF) 0.9 % injection 1-100 mL 1-100 mL, intravenous, Once, On e 10/21/24 at 1230, For 1 dose, Imaging Protocol Orders, Dose per Radiant Medication Guidelines Given 10/21/2024 11:34 AM CDT 100 mL documented in this encounter Care Teams Yarn Bleaching Machine Operator Relationship Specialty Start Date End Date Elsewhere, Pcp PCP - General Internal Medicine 08/21/24 documented as of this encounter
--- OUTSIDE RECORDS SUMMARY | 2024-10-22 12:46 | XMS_ITS | Encounter Summary ---
Author Organization [address] [address] Care Team Providers Care Edi Analyst Name Role Phone Sha Pedroza MD Primary Care Provider [phone] Reason for Visit * Rehab Therapy Cardiac Therapy (Routine) - Authorized Specialty Diagnoses / Procedures Referred By Nicole streeter Referred To Contact CARDIAC REHAB Diagnoses Chronic systolic heart failure (H) [address] [address] Phone: tel: Referral ID Status Reason Start Date Expiration Date V isits Requested Visits Authorized [id number] Authorized 10/03/2024 03/18/2025 36 36 Encounter Details Date Type Department Care Team (Latest Contact Info) Description 10/22/2024 12:46 PM CDT - 10/22/2024 11:59 PM CDT Hospital Encounter [facility] Cardiac and Pulmonary Rehabilitation [address] [address] Xander Byrnes MD [address] [place] [phone] Discharge Disposition: Home or Self Care Social History Tobacco Use Types Packs/Day Years Used Date Smoking Tobacco: Never Assessed Sex and Gender Information Value Date Recorded Sex Assigned at Not on file 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 Gender Identity Not on file Sexual Orientation Not on file documented as of this encounter Plan of Treatment Upcoming Encounters Date Type Department Care Team (Late st Contact Info) Description 11/10/2024 1:00 PM CDT Appointment [facility] Cardiac and Pulmonary Rehabilitation [address] [place] [phone] Xander Byrnes MD [address] [place] [phone] 11/12/2024 1:00 PM CDT Appointment [facility] Cardiac and Pulmonary [address] [address] Xander Byrnes MD [address] [place] [phone] 11/14/2024 1:00 PM CDT Appointment [facility] Cardiac and Pulmonary Rehabilitation [address] [phone] Xander Byrnes MD [address] [place] [phone] 11/19/2024 1:00 PM CDT Appointment [facility] Cardiac and Pulmonary Rehabilitation [address] [address] Xander Byrnes MD [address] [place] [phone] 11/21/2024 1:00 PM CDT Appointment [facility] Cardiac and Pulmonary Rehabilitation [address] [address] Xander Byrnes MD [address] [place] [phone] 11/24/2024 1:00 PM CDT Appointment [facility] Cardiac and Pulmonary Rehabilitation [address] [address] Xander Byrnes MD [address] [place] [phone] 11/26/2024 1:00 PM CDT Appointment [facility] Cardiac and Pulmonary Rehabilitation [address] [address] Xander Byrnes MD [address] [place] [phone] 11/28/2024 3:00 PM CDT Appointment [facility] Cardiac and Pulmonary Rehabilitation [address] [phone] Xander Byrnes MD [address] [place] [phone] 12/01/2024 1:00 PM CDT Appointment [facility] Cardiac and Pulmonary Rehabilitation [address] [address] Xander Byrnes MD [address] [place] [phone] 12/03/2024 1:00 PM CDT Appointment [facility] Cardiac and Pulmonary Rehabilitation [address] [address] Xander Byrnes MD [address] [place] [phone] 12/08/2024 1:00 PM CDT Appointment [facility] Cardiac and Pulmonary Rehabilitation [address] [address] Xander Byrnes MD [address] [place] [phone] documented as of this encounter Visit Diagnoses Not on filedocumented in this encounter Care Teams Edi Analyst Relationship Specialty [place] [address] [place] [address] PCP - General Family Medicine 10/03/24 documented as of this encounter
--- OUTSIDE RECORDS SUMMARY | 2024-10-24 12:49 | XMS_ITS | Encounter Summary ---
Author Organization [address] [address] Care Team Providers Care No Bake Molder Name Role Phone Sha Pedroza MD Primary Care Provider [phone] Reason for Visit * Rehab Therapy Cardiac Therapy (Routine) - Authorized Specialty Diagnoses / Procedures Referred By Nicole streeter Referred To Contact CARDIAC REHAB Diagnoses Chronic systolic heart failure (H) [address] [address] Phone: tel: Referral ID Status Reason Start Date Expiration Date V isits Requested Visits Authorized [id number] Authorized 10/03/2024 03/18/2025 36 36 Encounter Details Date Type Department Care Team (Latest Contact Info) Description 10/24/2024 12:49 PM CDT - 10/24/2024 11:59 PM CDT Hospital Encounter [facility] Cardiac and Pulmonary Rehabilitation [address] [address] Xander Byrnes MD [address] [place] [phone] Discharge Disposition: Home or Self Care Social History Tobacco Use Types Packs/Day Years Used Date Smoking Tobacco: Never Assessed Sex and Gender Information Value Date Recorded Sex Assigned at Not on file 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 Gender Identity Not on file Sexual Orientation Not on file documented as of this encounter Plan of Treatment Upcoming Encounters Date Type Department Care Team (Late st Contact Info) Description 11/10/2024 1:00 PM CDT Appointment [facility] Cardiac and Pulmonary Rehabilitation [address] [place] [phone] Xander Byrnes MD [address] [place] [phone] 11/12/2024 1:00 PM CDT Appointment [facility] Cardiac and Pulmonary [address] [address] Xander Byrnes MD [address] [place] [phone] 11/14/2024 1:00 PM CDT Appointment [facility] Cardiac and Pulmonary Rehabilitation [address] [phone] Xander Byrnes MD [address] [place] [phone] 11/19/2024 1:00 PM CDT Appointment [facility] Cardiac and Pulmonary Rehabilitation [address] [phone] Xander Byrnes MD [address] [place] [phone] 11/21/2024 1:00 PM CDT Appointment [facility] Cardiac and Pulmonary Rehabilitation [address] [phone] Xander Byrnes MD [address] [place] [phone] 11/24/2024 1:00 PM CDT Appointment [facility] Cardiac and Pulmonary Rehabilitation [address] [address] Xander Byrnes MD [address] [place] [phone] 11/26/2024 1:00 PM CDT Appointment [facility] Cardiac and Pulmonary Rehabilitation [address] [address] Xander Byrnes MD [address] [place] [phone] 11/28/2024 3:00 PM CDT Appointment [facility] Cardiac and Pulmonary Rehabilitation [address] [phone] Xander Byrnes MD [address] [place] [phone] 12/01/2024 1:00 PM CDT Appointment [facility] Cardiac and Pulmonary Rehabilitation [address] [address] Xander Byrnes MD [address] [place] [phone] 12/03/2024 1:00 PM CDT Appointment [facility] Cardiac and Pulmonary Rehabilitation [address] [address] Xander Byrnes MD [address] [place] [phone] 12/08/2024 1:00 PM CDT Appointment [facility] Cardiac and Pulmonary Rehabilitation [address] [address] Xander Byrnes MD [address] [place] [phone] documented as of this encounter Visit Diagnoses Not on filedocumented in this encounter Care Teams No Bake Molder Relationship Specialty [place] [address] [place] [address] PCP - General Family Medicine 10/03/24 documented as of this encounter
--- OUTSIDE RECORDS SUMMARY | 2024-10-27 13:41 | XMS_ITS | Encounter Summary ---
Author Organization [address] [address] Care Team Providers Care Doctor Of Nursing Practice Name Role Phone Sha Pedroza MD Primary Care Provider [phone] Reason for Visit * Rehab Therapy Cardiac Therapy (Routine) - Authorized Specialty Diagnoses / Procedures Referred By Nicole streeter Referred To Contact CARDIAC REHAB Diagnoses Chronic systolic heart failure (H) [address] [address] Phone: tel: Referral ID Status Reason Start Date Expiration Date V isits Requested Visits Authorized [id number] Authorized 10/03/2024 03/18/2025 36 36 Encounter Details Date Type Department Care Team (Latest Contact Info) Description 10/27/2024 1:41 PM CDT - 10/27/2024 11:59 PM CDT Hospital Encounter [facility] Cardiac and Pulmonary Rehabilitation [address] [phone] Xander Byrnes MD [address] [place] [phone] Discharge Disposition: Home or Self Care Social History Tobacco Use Types Packs/Day Years Used Date Smoking Tobacco: Never Assessed Sex and Gender Information Value Date Recorded Sex Assigned at Not on file 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 Cardiac and Pulmonary [address] [address] Xander Byrnes MD [address] [place] [phone] 11/14/2024 1:00 PM CDT Appointment [facility] Cardiac and Pulmonary Rehabilitation [address] [phone] Xander Byrnes MD [address] [place] [phone] 11/19/2024 1:00 PM CDT Appointment [facility] Cardiac and Pulmonary Rehabilitation [address] [address] Xander Byrnes MD [address] [place] [phone] 11/21/2024 1:00 PM CDT Appointment [facility] Cardiac and Pulmonary Rehabilitation [address] [phone] Xander Byrnes MD [address] [place] [phone] 11/24/2024 1:00 PM CDT Appointment [facility] Cardiac and Pulmonary Rehabilitation [address] [address] Xander Byrnes MD [address] [place] [phone] 11/26/2024 1:00 PM CDT Appointment [facility] Cardiac and Pulmonary Rehabilitation [address] [phone] Xander Byrnes MD [address] [place] [phone] 11/28/2024 3:00 PM CDT Appointment [facility] Cardiac and Pulmonary Rehabilitation [address] [phone] Xander Byrnes MD [address] [place] [phone] 12/01/2024 1:00 PM CDT Appointment [facility] Cardiac and Pulmonary Rehabilitation [address] [address] Xander Byrnes MD [address] [place] [phone] 12/03/2024 1:00 PM CDT Appointment [facility] Cardiac and Pulmonary Rehabilitation [address] [phone] Xander Byrnes MD [address] [place] [phone] 12/08/2024 1:00 PM CDT Appointment [facility] Cardiac and Pulmonary Rehabilitation [address] [phone] Xander Byrnes MD [address] [place] [phone] documented as of this encounter Visit Diagnoses Not on filedocumented in this encounter Care Teams Doctor Of Nursing Practice Relationship Specialty [place] [address] [place] [address] PCP - General Family Medicine 10/03/24 documented as of this encounter
--- OUTSIDE RECORDS SUMMARY | 2024-10-29 10:45 | XMS_ITS | Encounter Summary ---
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 [address] [place] [address] Phone: tel: fax: [facility] Referral ID Status Reason Start Date Expiration Date V isits Requested Visits Authorized [id number] Authorized 10/29/2024 01/29/2026 1 1 * Outpatient (Routine) - Authorized Specialty Diagnoses / Procedures Referred By Contac t Referred To Contact Cardiovascular Disease Mark Mckeon M.D. [address] [place] [address] Phone: tel: fax: [facility] Referral ID Status Reason Start Date Expiration Date V isits Requested Visits Authorized [id number] Authorized 10/29/2024 04/30/2026 1 1 * Outpatient (Routine) - Authorized Specialty Diagnoses / Procedures Referred By Contac t Referred To Contact Diagnoses Arrest Cardiac (HCC) Procedures ECG 12 Lead PA EKG 12 LEAD W I&R Mark Mckeon M.D. [address] [place] [address] Phone: tel: fax: [facility] Region Referral ID Status Reason Start Date Expiration Date V isits Requested Visits Authorized [id number] Authorized 10/29/2024 01/29/2026 1 1 * Cardiovascular-Diagnostic (Routine) - Pending Review Specialty Diagnoses / Procedures Referred By Nicole t Referred To Contact Diagnoses Arrest Cardiac (HCC) Procedures Echo Transthoracic (TTE) Mark Mckeon M.D. [address] [place] [address] Phone: tel: fax: [facility] Region Referral ID Status Reason Start Date Expiration Date V isits Requested Visits Authorized [id number] Pending Review 10/29/2024 01/29/2026 1 1 Reason for Visit * Reason Comments Advice Only * Outpatient (Routine) - Closed Specialty Diagnoses / Procedures Referred By Nicole t Referred To Contact Cardiovascular Disease Taina Owens P.A.-Capo [address] [place] [address] Phone: tel: fax: [facility] Region Referral ID Status Reason Start Date Expiration Date Visits Re quested Visits Authorized [id number] Closed 08/27/2024 02/26/2026 1 1 Encounter Details Date Type Department Care Team (Latest Contact Info) Description 10/29/2024 10:45 AM CDT Office Visit Department of Cardiovascular Diseases in [place], [place] [address] [place] [address] Mark Mckeon M.D. [address] [place] [address] Arrest Cardiac (HCC) (Primary Dx); Abnormal Laboratory Results; Fatigue Social History Tobacco Use Types Packs/Day Years Used Date Smoking Tobacco: Former Cigarettes 2018 Smokeless Tobacco: Former Snuff Tobacco Cessation:Counseling Given: Not Answered Comments:Nicotine pouches Alcohol Use Standard Drinks/Week Comments Not Currently 0 (1 standard drink = 0.6 oz pur e alcohol) [facility] Utilities Answer Date Recorded In the past 12 months has e [employer], gas, oil, or water [employer] threatened to shut off services in your [...] your living situation today? 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 - 10/29/2024 10:45 AM CDT CARDIOLOGY CONSULTATION Location: [facility] Consultation Indication: Advice Only Referring Provider: Taina Owens P.A.-C. PROBLEM LIST: Personal history of [id number] cardiac arrest; 08/21/2024 Shockable rhythm; VF arrest ECG at the time did not suggest STEMI or ischemia; no prolonged QT, Delta or Epsilon wave. LVEF 23%on echo post event. Coronary angiography revealed no flow- limiting disease CMR 10/2024: Mild nonvascular DHE in the basal interventricular septum; LVEF 51%; RVEF 40% He underwent ICD placement 08/26/2024. 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 ASSESSMENT/ PLAN Arrest Cardiac (HCC) Orders: Sodium; Future Potassium; Future Creatinine with Estimated GFR; Future Echo Transthoracic (TTE); Future ECG 12 Lead; Future Cardiopulmonary (VO2) Exercise Test; Future Abnormal Laboratory Results Orders: AST (Aspartate Aminotransferase); Future ALT (Alanine Aminotransferase); Future Fatigue Orders: Cardiopulmonary (VO2) Exercise Test; Future Cardiac arrest Experienced cardiac arrest on August 21, 2024, with subsequent hospitalization and extensive workup. An ICD was implanted on August 26, 2024, to prevent further episodes. The cause of the cardiac arrest remains unexplained despite extensive testing, including ECG, echocardiogram, angiogram, and genetic testing. Heart function improved from an ejection fraction of 23% post-arrest to 51% as per recent MRI. Mild RV dysfunction reported but no clear evidence of ARVC. No significant arrhythmias or genetic defects were identified. The possibility of myocardial bridge causing ischemia and arrhythmia is considered. The ICD provides rapid intervention for arrhythmias, reducing the risk of delayed treatment. Beta-leodan therapy is first line in the setting of myocardial bridge. No indication (or even contraindication) for nitrates. Discussed the potential need for open heart surgery if myocardial bridge causes significant issues, but this is considered a last resort due to its invasiveness and long recovery time. Stratification of his risk with a cardiopulmonary exercise stress test is recommended. We will consider up titration of beta-leodan therapy based on findings. He may resume work in case of reassuring results. We will plan on reassessing his left ventricular and right ventricular systolic function with the echocardiography in 6 months, prior to our next follow-up appointment. It is unclear that lifelong guideline directed medical therapy for nonischemic cardiomyopathy would be indicated as the patient's systolic function was likely due to stunning post cardiac arrest. If down titration of the medications is implemented, follow up echo should be pursued. Continue antiplatelet therapy for mild CAD and myocardial bridge. Lastly, in the absence of genetic abnormalities, no cascade genetic testing of family members is recommended. However, we would suggest at least an electrocardiogram and echocardiogram to make sure no significant structural cardiac abnormalities are seen on first-degree relatives (with the additional testing, such as stress testing and Holter, dictated by the findings). - Order cardiopulmonary exercise stress test in [place] to assess heart and lung function and check for arrhythmias induced by exercise - Repeat echocardiogram in six months - Continue carvedilol, lisinopril, aspirin, and cholesterol medication - Consider stopping spironolactone and/or Jardiance after six months if heart function remains stable - Advise ECG and echocardiogram for first-degree relatives ICD in place Continue regular monitoring with the device Clinic. No ventricular events on the last device check done October 2024. Therapy adjustments we will be pursued if arrhythmias are documented. - Continue regular ICD checks with the device Clinic Fatigue and lightheadedness Fatigue preceded the cardiac arrest and continues post-event. Lightheadedness occurs intermittently, especially when moving from a seated to standing position. This is likely orthostatic in etiology.Blood pressure readings are consistently low, likely due to medication effects. The possibility of adjusting medications was discussed to manage symptoms. - Monitor blood pressure and symptoms - Consider adjusting heart medications if lightheadedness persists Liver function abnormalities Liver function was abnormal post-arrest, likely due to reduced liver perfusion during the event. Follow-up tests are needed to ensure normalization. - Order liver function tests in one month Follow-up Regular follow-up is necessary to monitor heart function and medication effects. Discussed the importance of monitoring for spironolactone effects due to potential for increased potassium levels. - Schedule follow-up appointment in six months - Order labs for spironolactone effects in one month - Coordinate with family doctor for additional tests if needed PLAN: #1 Arrest Cardiac (HCC) - Sodium; Future; Expected date: 11/29/2024 - Potassium; Future; Expected date: 11/29/2024 - Creatinine with Estimated GFR; Future; Expected date: 11/29/2024 - Echo Transthoracic (TTE); Future; Expected date: 05/01/2025 - ECG 12 Lead; Future; Expected date: 05/01/2025 (Before next visit) #2 Abnormal Laboratory Results - AST (Aspartate Aminotransferase); Future; Expected date: 11/29/2024 - ALT (Alanine Aminotransferase); Future; Expected date: 11/29/2024 #3 Fatigue Other orders - Cardiovascular Disease office visit (clinic) [facility]; General - Cardiovascular Disease office visit (clinic) [facility] Region; General; Future; Expected date: 05/01/2025 - Cardiopulmonary (VO2) Exercise Test; Future; Expected date: 10/29/2024 There are no discontinued medications. - Follow up with Cardiology in 6 months or call us sooner in case of problems or concerns. The patient expressed understanding of the information discussed during the visit today and agreement with the plan. DATE OF VISIT: 10/29/2024 SUBJECTIVE CHIEF COMPLAINT / REASON FOR VISIT Alexis Dennis is a 49 y.o. male who presents for evaluation of Advice Only. His PCP is Erin Duarte. The patient verbally consented to an audio recording of their visit to assist with the completion of documentation. History of Present Illness Alexis Dennis is a 49 year old male who presents for follow-up after a cardiac arrest and ICD placement. Presenting accompanied by his . He experienced a cardiac arrest on August 21, 2024, while at work. He had been feeling fatigued for several months prior, often feeling 'worn out' after long workdays. On the morning of the incident, herode his motorcycle to work, felt normal, but later collapsed after calling for his boss. No cardiac symptoms reported before the event. He was hospitalized for a week, with no memory of the first four days post-event. Following the cardiac arrest, he was found to have an ejection fraction of 23%. An EKG showed normal rhythm with some nonspecific changes, and an angiogram revealed a 20% blockage in the proximal right coronary artery and an intramyocardial bridge. Genetic testing and further cardiac evaluations have not identified a clear cause for the arrest. He received an ICD on August 26, 2024, to monitor and correct any future arrhythmias. Recent MRI results show improvement in heart function, with an ejection fraction now at 51%. He experiences ongoing fatigue and new episodes of lightheadedness and dizziness, particularly whenmoving from a seated to a standing position. His blood pressure readings are often below 100 mmHg. He also experiences tingling in his right hand when riding his motorcycle, which is a new symptom post-event. He has a history of hypertension, managed with lisinopril for several years. His current medications include aspirin, Jardiance, spironolactone, cholesterol medication, carvedilol, and lisinopril, which was increased to 20 mg in February 2024. 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 He has one biological child and two stepchildren, and there is no known family history of similar cardiac events or sudden cardiac . Hypertension and diabetes in the family. His son is 16 years of age without known medical issues. He is a past smoker who quit more than 5 years ago. He exercises more than 5 days a week. He drinks1 alcoholic beverages a week. One caffeinated beverages a day. Uses marijuana. Record review, prior to appointment: Hospitalization records reviewed. Newly diagnose the heart failure with reduced ejection fraction presenting with sudden cardiac arrest. Status post ICD placement. Cardiovascular Risk Factors: 1. Smoking status: quit smoking approximately more than 5 years ago 2. Type II Diabetes Mellitus: no. 3. Hypertension: yes 4. Dyslipidemia: no. 5. Family history of early coronary artery disease in a first degree relative (Male less than 55 years of age; Female less than 65 years of age): no 6. Obesity and/or Metabolic Syndrome: no 7. Sedentary lifestyle: no 8. Menopausal status: N/A current medications[1] No Known Allergies Social History[2] Family History[3] REVIEW OF SYSTEMS Constitutional: Positive for fatigue (Poor sleep). - Negative for fever, weight gain of more than 10 pounds and weight loss of more than 10 pounds. Skin: - Negative for skin rash. Eyes: - Negative for double vision and visual problems. ENT: - Negative for persistent hoarse voice. Respiratory: - Negative for coughing up blood, coughing up mucus (phlegm), dry cough and shortness of breath. Cardiovascular: - Negative for chest pain, pressure or tightness, swelling in the legs or feet, rapid or flutteringheart beat, pain in the calf muscles when walking and shortness of breath when lying flat. Gastrointestinal: - Negative for abdominal (belly) pain or cramping, blood in stool, heartburn and difficulty swallowing. Genitourinary: - Negative for blood in urine. Hematologic: - Negative for bruises or bleeds easily. Musculoskeletal: Positive for pain or stiffness in the joints and muscle pain/stiffness. Neurological: Positive for light-headedness (With standing up), numbness or shooting pain in hands,arms, legs, or feet and weakness in arms or legs (Arms). - Negative for seizures, loss of consciousness, loss of balance or tendency to fall easily and headaches. Psychiatric/Behavioral: Positive for erectile dysfunction. - Negative for excessive daytime sleepiness/tiredness, loud snoring and stopping breathing, choking, or gasping while asleep. The following portions of the patient's history were reviewed and updated as appropriate: allergies, current medications, family history, medical history, social history, surgical history and problemlist. OBJECTIVE VITAL SIGNS BP 95/60 (BP Location: Left arm) Pulse 67 Wt 91 kg SpO2 99% BMI 27.20 kg/m?? Vitals: 10/29/24 1020 10/29/24 1023 BP: 99/64 95/60 BP Location: Right arm Left arm Patient Position: Sitting Cuff Size: Regular Pulse: 67 SpO2: 99% Weight: 91 kg BP Readings from Last 3 Encounters: 10/29/24 95/60 08/27/24 (!) 125/95 08/21/24 121/82 Wt Readings from Last 3 Encounters: 10/29/24 91 kg 08/26/24 87.5 kg PHYSICAL EXAMINATION General: Patient is awake, alert, oriented x3. No acute distress. Eyes: Pupils are equal and symmetric in size, normal extraocular movements. No pallor. No icterus. No xanthelasma. ENT: Normal dentition, tongue is not enlarged. Neck: No jugular venous distention. No carotid bruits. Chest/Lungs: No chest deformity. Normal respiratory effort. Good air entry bilaterally. No adventitious sounds. Cardiovascular: Normal rate and regular rhythm. Normal S1 and S2. No murmurs, rubs, or gallops. Negative hepatojugular reflux. Abdomen: Soft, nontender, nondistended. Lower Extremities: Lower extremity warm without edema. Upper Extremities: 2+ Radial pulses bilaterally. Normal capillary refill. No cyanosis. Neurologic: No focal motor findings in upper or lower extremities. DIAGNOSTICS I have reviewed the patient's current laboratory, imaging, and other diagnostic studies. Pertinent laboratory studies have been reviewed and are notable for: Lab Results Component Value Date NA 139 10/29/2024 KSERUM 3.6 04/18/2022 KPLASMA 4.8 10/29/2024 CL 98 08/27/2024 CO2 25 04/29/2021 BUN 17 08/27/2024 CREATININE 0.99 10/29/2024 GLUCOSE 101 08/27/2024 GLUCOSEPOC 90 08/24/2024 CALCIUM 9.2 08/27/2024 Lab Results Component Value Date WBC 6.1 08/27/2024 HGB 16.0 08/27/2024 HGB 16.3 08/22/2024 HCT 45.7 08/27/2024 MCV 87.0 08/27/2024 PLT 256 08/27/2024 Lab Results Component Value Date CHOL 133 08/27/2024 TRIG 134 08/27/2024 HDL 30 (L) 08/27/2024 ECG August 2024: Normal sinus rhythm, 71 beats per minute Normal ECG When compared with ECG of 26-Aug-2024 20:00, QRS duration has decreased The 10-year ASCVD risk score (Roldan YOUNG, et al., 2019) is: 1.6% Values used to calculate the score: Age: 49 years Clincally relevant sex: Male Is Non- : No Diabetic: No Tobacco smoker: No Systolic Blood Pressure: 95 mmHg Is BP treated: No HDL Cholesterol: 30 mg/dL Total Cholesterol: 133 mg/dL PERTINENT CARDIAC (OR RELATED) STUDIES REVIEWED: Device check October 2024: Encounter Impression: Title: Pre-MRI Check * Pre-MRI [...] for 3 month s/p ICD in November Cardiac MRI 10/21/2024: 1. Mild nonvascular delayed enhancement in the basal interventricular septum. 2. Right ventricular systolic dysfunction (RVEF 40%). Coronary angiography 08/24/2024: 1. Mild coronary artery atherosclerosis 2. Normal LVEDP ( 14 mm Hg ), no gradient across the aortic valve. Echocardiogram 08/21/2024: 1. Calculated 2-D biplane volumetric left ventricular ejection fraction of 23% with the use of ultrasound enhancing agent. 2. Moderate-severe generalized left ventricular hypokinesis. 3. Left ventricular cardiac index 2.47 l/min/m2. 4. Left ventricular stroke volume index 34 ml/m2. 5. Elevated left ventricular filling pressure. 6. Mildly enlarged right ventricular chamber size by visual estimate. 7. Moderately reduced right ventricular systolic function. 8. No pericardial effusion. Comments Echo performed status post cardiac arrest. Left ventricular dysfunction primarily global with some regionality. Right ventricular function is also depressed. [1] Current Outpatient Medications Medication Sig aspirin 81 mg chewable tablet Chew 1 tablet (81 mg total) daily. atorvastatin (Lipitor) 40 mg tablet Take 1 tablet (40 mg total) by mouth at bedtime. carvediloL (Coreg) 6.25 mg tablet Take 1 tablet (6.25 mg total) by mouth 2 (two) times a day with meals. empagliflozin (Jardiance) 10 mg tablet Take 1 tablet (10 mg total) by mouth daily before morning meal. lisinopriL 20 mg tablet Take 20 mg by mouth daily. sildenafiL (Viagra) 100 mg tablet Take 100 mg by mouth at bedtime as needed. spironolactone (Aldactone) 25 mg tablet Take 1 tablet (25 mg total) by mouth daily. [2] Social History Socioeconomic History Marital status: Tobacco Use Smoking status: Former Current packs/day: 0.00 Average packs/day: 1 pack/day for 29.0 years (29.0 ttl pk-yrs) Types: Cigarettes Start date: 1989 Quit date: 2019 Years since quittin.6 Smokeless tobacco: Former Types: Snuff Tobacco comments: Nicotine pouches Substance and Sexual Activity Alcohol use: Not Currently Drug use: Yes Types: Marijuana Sexual activity: Not Currently Partners: Female control/protection: Post-menopausal Social Drivers of Health Food Insecurity: No Food Insecurity (09/13/2024) Hunger Vital Sign Worried About Running Out of Food in the Last Year: Never true Ran Out of Food in the Last Year: Never true Transportation Needs: No Transportation Needs (09/13/2024) PRAPARE - Transportation Lack of Transportation (Medical): No Lack of Transportation (Non-Medical): No Intimate Partner Violence: Patient Unable To Answer (08/22/2024) Humiliation, Afraid, Rape, and Kick questionnaire Fear of Current or Ex-Partner: Patient unable to answer Emotionally Abused: Patient unable to answer Physically Abused: Patient unable to answer Sexually Abused: Patient unable to answer Housing Stability: Low Risk (09/13/2024) Housing Stability Housing: Living Situation: I have a steady place to live [3] Family History Problem Relation Name Age of Onset Diabetes Mother Hypertension Mother Smoker Maternal Grandmother Cancer Half-Brother colon or pancreatic documented in this encounter Miscellaneous Notes * Assessment & Plan Note - Mark Mckeon M.D. - 10/29/2024 10:45 AM CDT Associated Problem(s): Arrest Cardiac (HCC) Orders: Sodium; Future Potassium; Future Creatinine with Estimated GFR; Future Echo Transthoracic (TTE); Future ECG 12 Lead; Future Cardiopulmonary (VO2) Exercise Test; Future documented in this encounter Plan of Treatment Upcoming Encounters Date Type Department Care Team (Late st Contact Info) Description 11/18/2024 8:30 AM CDT Appointment Department of Cardiovascular Diseases in [place], [place] [address] [place] [address] Mark Mckeon M.D. [address] [place] [address] 11/28/2024 9:30 AM CDT Appointment Department of Cardiovascular Diseases in [place], [place] [address] [place] [address] Xander Byrnes M.D. [address] [place] [address] Scheduled Orders Name Type Priority Associated Diagnoses Order Schedule Echo Transthoracic (TTE) Echocardiography Routine Arrest Cardiac (HCC) Expected: 05/01/2025, Expires: 01/29/2026 ECG 12 Lead ECG Routine Arrest Cardiac (HCC) Expected: 05/01/2025, Expires: 01/29/2026 Cardiopulmonary (VO2) Exercise Test Cardiac Services Routine Arrest Cardiac (HCC) Fatigue Expected: 10/29/2024, Expires: 01/29/2026 Scheduled Referrals Name Type Priority Associated Diagnoses Order Schedule Cardiovascular Disease office visit (clinic) [facility] [place] [facility]; General Outpatient Referral Routine Expected: 05/01/2025 (Approximate), Expires: 01/29/2026 documented as of this encounter Results * (ABNORMAL) ALT (Alanine Aminotransferase) (10/29/2024 11:20 AM CDT) Alanine Aminotransferase (ALT), P 110(H) 7 - 55 U/L 10/29/2024 12:22 PM CDT [facility] Blood (Blood, Venous) 10/29/2024 11:20 AM CDT 10/29/2024 11:26 AM CDT Mark Mckeon M.D. LAB BLOOD ADD-ON Final Res ult Performing Organization Address City/[facility]/ZIP Co de Phone Number [facility] [address] [place] [phone], [facility] [place] [address] [place] [phone] * AST (Aspartate Aminotransferase) (10/29/2024 11:20 AM CDT) Aspartate Aminotransferase (AST), P 39 8 - 48 U/L 10/29/2024 12:22 PM CDT [facility] Blood (Blood, Venous) 10/29/2024 11:20 AM CDT 10/29/2024 11:26 AM CDT Mark Mckeon M.D. LAB BLOOD ADD-ON Final Res ult [facility] [address] [place] [id number], [place] AT [facility] [place] [address] [place] [phone] * Creatinine with Estimated GFR (10/29/2024 11:20 AM CDT) Creatinine 0.99 0.74 - 1.35 mg/dL 10/29/2024 12:22 PM CDT [facility] Estimated GFR (eGFR) >90 >=60 mL/min/BSA 10/29/2024 12:22 PM CDT [facility] Comment: Estimated GFR calculated using the 2020 CKD_EPI creatinine equation. Blood (Blood, Venous) 10/29/2024 11:20 AM CDT 10/29/2024 11:26 AM CDT Mark Mckeon M.D. LAB BLOOD ADD-ON Final Res ult Performing Organization Address City/[facility]/ZIP Co de Phone Number [facility] [address] [place] [address], [facility] [place] [address] * Potassium (10/29/2024 11:20 AM CDT) Potassium, P 4.8 3.6 - 5.2 mmol/L 10/29/2024 12:22 PM CDT [facility] Blood (Blood, Venous) 10/29/2024 11:20 AM CDT 10/29/2024 11:26 AM CDT Mark Mckeon M.D. LAB BLOOD ADD-ON Final Res ult Performing Organization Address [facility] Co de Phone Number [facility] [address] [place] [address], [facility] in [place] [address] [address] * Sodium (10/29/2024 11:20 AM CDT) Sodium, P 139 135 - 145 mmol/L 10/29/2024 12:22 PM CDT OWAT Blood (Blood, Venous) 10/29/2024 11:20 AM CDT 10/29/2024 11:26 AM CDT Mark Mckeon M.D. 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
--- OUTSIDE RECORDS SUMMARY | 2024-10-29 11:12 | XMS_ITS | Encounter Summary ---
Author Organization [facility] Address [address] [place] [address] Care Team Providers Care Employee Services Manager Name Role Phone Elsewhere, Pcp Primary Care Provider Unavailabl e Encounter Details Date Type Department Care Team (Latest Contact Info) Description 10/29/2024 11:12 AM CDT - 10/29/2024 11:59 PM CDT Hospital Encounter Department of Laboratory Medicine in [place], [place] [address], [place] [address] Mark Mckeon M.D. [address] [place] [phone] Arrest Cardiac (HCC); Abnormal Laboratory Results Discharge Disposition: Home or Self Care Social History Tobacco Use Types Packs/Day Years Used Date Smoking Tobacco: Former Cigarettes 1 - 2018 Smokeless Tobacco: Former Snuff Comments:Nicotine pouches Alcohol Use Standard Drinks/Week Comments Not Currently 0 (1 standard drink = 0.6 oz pur e alcohol) [facility] Utilities Answer Date Recorded In the [...] your living situation today? 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 [address] [place] [phone] 11/28/2024 9:30 AM CDT Appointment Department of Cardiovascular Diseases in [place], [place] [address] [place] [address] Xander Byrnes M.D. [address] [place] [phone] documented as of this encounter Procedures Procedure Name Priority Date/Time Associated Diagnosis Comments ALANINE AMINOTRANSFERASE (ALT), S/P Routine 10/29/2024 11:20 AM CDT Abnormal Laboratory Results ASPARTATE AMINOTRANSFERASE (AST), S/P Routine 10/29/2024 11:20 AM CDT Abnormal Laboratory Results SODIUM, S/P Routine 10/29/2024 11:20 AM CDT Arrest Cardiac (HCC) POTASSIUM, S/P Routine 10/29/2024 11:20 AM CDT Arrest Cardiac (HCC) CREATININE WITH EGFR, S/P Routine 10/29/2024 11:20 AM CDT Arrest Cardiac (HCC) documented in this encounter Results * (ABNORMAL) ALT (Alanine Aminotransferase) (10/29/2024 11:20 AM CDT) Alanine Aminotransferase (ALT), P 110(H) 7 - 55 U/L 10/29/2024 12:22 PM CDT OWAT Blood (Blood, Venous) 10/29/2024 11:20 AM CDT 10/29/2024 11:26 AM CDT Mark Mckeon M.D. LAB BLOOD ADD-ON Final Res ult Performing Organization Address City/[facility]/ZIP Co de Phone Number [facility] [address] [address], [facility] OWAT [facility] in [place] [address] [place] [address] * AST (Aspartate Aminotransferase) (10/29/2024 11:20 AM CDT) Aspartate Aminotransferase (AST), P 39 8 - 48 U/L 10/29/2024 12:22 PM CDT OWAT Blood (Blood, Venous) 10/29/2024 11:20 AM CDT 10/29/2024 11:26 AM CDT Mark Mckeon M.D. LAB BLOOD ADD-ON Final Res ult Performing Organization Address City/[facility]/ZIP Co de Phone Number [facility] [address] [place] [address], [facility] OWAT [facility] in [place] [address] [place] [address] * Creatinine with Estimated GFR (10/29/2024 11:20 [...] ADD-ON Final Res ult Performing Organization Address City/[facility]/ZIP Co de Phone Number [facility] [address] [place] [address], [facility] OWAT [facility] in [place] [address] [place] [address] * Potassium (10/29/2024 11:20 AM CDT) Potassium, P 4.8 3.6 - 5.2 mmol/L 10/29/2024 12:22 PM CDT OWAT Blood (Blood, Venous) 10/29/2024 11:20 AM CDT 10/29/2024 11:26 AM CDT Mark Mckeon M.D. LAB BLOOD ADD-ON Final Res ult Performing Organization Address [facility] Co de Phone Number [facility] [address] [place] [address], [facility] in [place] [address] [place] [address] * Sodium (10/29/2024 11:20 AM CDT) Sodium, P 139 135 - 145 mmol/L 10/29/2024 12:22 PM CDT OWAT Blood (Blood, Venous) 10/29/2024 11:20 AM CDT 10/29/2024 11:26 AM CDT Mark Mckeon M.D. LAB BLOOD ADD-ON Final Res ult Performing Organization Address City/[facility]/ZIP Co de Phone Number [facility] [address] [place] [address], [facility] OWAT [facility] in [place] [address] [place] [address] documented in this encounter Visit Diagnoses Diagnosis Arrest Cardiac (HCC) Abnormal Laboratory Results documented in this encounter Care Teams Employee Services Manager Relationship Specialty Start Date End Date Elsewhere, Pcp PCP - General Internal Medicine 08/21/24 documented as of this encounter
--- OUTSIDE RECORDS SUMMARY | 2024-10-29 13:36 | XMS_ITS | Encounter Summary ---
Author Organization [address] [address] Care Team Providers Care Evp Operations Name Role Phone Sha Pedroza MD Primary Care Provider [phone] Reason for Visit * Rehab Therapy Cardiac Therapy (Routine) - Authorized Specialty Diagnoses / Procedures Referred By Nicole streeter Referred To Contact CARDIAC REHAB Diagnoses Chronic systolic heart failure (H) [address] [address] Phone: tel: Referral ID Status Reason Start Date Expiration Date V isits Requested Visits Authorized [id number] Authorized 10/03/2024 03/18/2025 36 36 Encounter Details Date Type Department Care Team (Latest Contact Info) Description 10/29/2024 1:36 PM CDT - 10/29/2024 11:59 PM CDT Hospital Encounter [facility] Cardiac and Pulmonary Rehabilitation [address] [phone] Xander Byrnes MD [address] [place] [phone] Discharge Disposition: Home or Self Care Social History Tobacco Use Types Packs/Day Years Used Date Smoking Tobacco: Never Assessed Sex and Gender Information Value Date Recorded Sex Assigned at Not on file 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 Gender Identity Not on file Sexual Orientation Not on file documented as of this encounter Plan of Treatment Upcoming Encounters Date Type Department Care Team (Late st Contact Info) Description 11/10/2024 1:00 PM CDT Appointment [facility] Cardiac and Pulmonary Rehabilitation [address] [place] [phone] Xander Byrnes MD [address] [place] [phone] 11/12/2024 1:00 PM CDT Appointment [facility] Cardiac and Pulmonary [address] [phone] Xander Byrens MD [address] [place] [phone] 11/14/2024 1:00 PM CDT Appointment [facility] Cardiac and Pulmonary Rehabilitation [address] [phone] Xander Byrnes MD [address] [place] [phone] 11/19/2024 1:00 PM CDT Appointment [facility] Cardiac and Pulmonary Rehabilitation [address] [phone] Xander Brynes MD [address] [place] [phone] 11/21/2024 1:00 PM CDT Appointment [facility] Cardiac and Pulmonary Rehabilitation [address] [phone] Xander Byrnes MD [address] [place] [phone] 11/24/2024 1:00 PM CDT Appointment [facility] Cardiac and Pulmonary Rehabilitation [address] [phone] Xander Byrnes MD [address] [place] [phone] 11/26/2024 1:00 PM CDT Appointment [facility] Cardiac and Pulmonary Rehabilitation [address] [phone] Xander Byrnes MD [address] [place] [phone] 11/28/2024 3:00 PM CDT Appointment [facility] Cardiac and Pulmonary Rehabilitation [address] [phone] Xander Byrnes MD [address] [place] [phone] 12/01/2024 1:00 PM CDT Appointment [facility] Cardiac and Pulmonary Rehabilitation [address] [phone] Xander Byrnes MD [address] [place] [phone] 12/03/2024 1:00 PM CDT Appointment [facility] Cardiac and Pulmonary Rehabilitation [address] [phone] Xander Byrnes MD [address] [place] [phone] 12/08/2024 1:00 PM CDT Appointment [facility] Cardiac and Pulmonary Rehabilitation [address] [phone] Xander Byrnes MD [address] [place] [phone] documented as of this encounter Visit Diagnoses Not on filedocumented in this encounter Care Teams Evp Operations Relationship Specialty [place] [address] [place] [address] PCP - General Family Medicine 10/03/24 documented as of this encounter
--- OUTSIDE RECORDS SUMMARY | 2024-10-31 13:41 | XMS_ITS | Encounter Summary ---
Author Organization [address] [address] Care Team Providers Care Senior Electronics Design Engineer Name Role Phone Sha Pedroza MD Primary Care Provider [phone] Reason for Visit * Rehab Therapy Cardiac Therapy (Routine) - Authorized Specialty Diagnoses / Procedures Referred By Nicole streeter Referred To Contact CARDIAC REHAB Diagnoses Chronic systolic heart failure (H) [address] [address] Phone: tel: Referral ID Status Reason Start Date Expiration Date V isits Requested Visits Authorized [id number] Authorized 10/03/2024 03/18/2025 36 36 Encounter Details Date Type Department Care Team (Latest Contact Info) Description 10/31/2024 1:41 PM CDT - 10/31/2024 11:59 PM CDT Hospital Encounter [facility] Cardiac and Pulmonary Rehabilitation [address] [phone] Xander Byrnes MD [address] [place] [phone] Discharge Disposition: Home or Self Care Social History Tobacco Use Types Packs/Day Years Used Date Smoking Tobacco: Never Assessed Sex and Gender Information Value Date Recorded Sex Assigned at Not on file 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 Gender Identity Not on file Sexual Orientation Not on file documented as of this encounter Plan of Treatment Upcoming Encounters Date Type Department Care Team (Late st Contact Info) Description 11/10/2024 1:00 PM CDT Appointment [facility] Cardiac and Pulmonary Rehabilitation [address] [place] [phone] Xander Byrnes MD [address] [place] [phone] 11/12/2024 1:00 PM CDT Appointment [facility] Cardiac and Pulmonary [address] [phone] Xander Byrnes MD [address] [place] [phone] 11/14/2024 1:00 PM CDT Appointment [facility] Cardiac and Pulmonary Rehabilitation [address] [phone] Xander Byrnes MD [address] [place] [phone] 11/19/2024 1:00 PM CDT Appointment [facility] Cardiac and Pulmonary Rehabilitation [address] [phone] Xander Byrnes MD [address] [place] [phone] 11/21/2024 1:00 PM CDT Appointment [facility] Cardiac and Pulmonary Rehabilitation [address] [phone] Xander Byrnes MD [address] [place] [phone] 11/24/2024 1:00 PM CDT Appointment [facility] Cardiac and Pulmonary Rehabilitation [address] [phone] Xander Byrnes MD [address] [place] [phone] 11/26/2024 1:00 PM CDT Appointment [facility] Cardiac and Pulmonary Rehabilitation [address] [phone] Xander Byrnes MD [address] [place] [phone] 11/28/2024 3:00 PM CDT Appointment [facility] Cardiac and Pulmonary Rehabilitation [address] [phone] Xander Byrnes MD [address] [place] [phone] 12/01/2024 1:00 PM CDT Appointment [facility] Cardiac and Pulmonary Rehabilitation [address] [phone] Xander Byrnes MD [address] [place] [phone] 12/03/2024 1:00 PM CDT Appointment [facility] Cardiac and Pulmonary Rehabilitation [address] [phone] Xander Byrnes MD [address] [place] [phone] 12/08/2024 1:00 PM CDT Appointment [facility] Cardiac and Pulmonary Rehabilitation [address] [phone] Xander Byrnes MD [address] [place] [phone] documented as of this encounter Visit Diagnoses Not on filedocumented in this encounter Care Teams Senior Electronics Design Engineer Relationship Specialty [place] [address] [place] [address] PCP - General Family Medicine 10/03/24 documented as of this encounter
--- OUTSIDE RECORDS SUMMARY | 2024-11-03 12:53 | XMS_ITS | Encounter Summary ---
Author Organization [address] [address] Care Team Providers Care Cookie Mixer Helper Name Role Phone Sha Pedroza MD Primary Care Provider [phone] Reason for Visit * Rehab Therapy Cardiac Therapy (Routine) - Authorized Specialty Diagnoses / Procedures Referred By Nicole streeter Referred To Contact CARDIAC REHAB Diagnoses Chronic systolic heart failure (H) [address] [address] Phone: tel: Referral ID Status Reason Start Date Expiration Date V isits Requested Visits Authorized [id number] Authorized 10/03/2024 03/18/2025 36 36 Encounter Details Date Type Department Care Team (Latest Contact Info) Description 11/03/2024 12:53 PM CDT - 11/03/2024 11:59 PM CDT Hospital Encounter [facility] Cardiac and Pulmonary Rehabilitation [address] [phone] Xander Byrnes MD [address] [place] [phone] Discharge Disposition: Home or Self Care Social History Tobacco Use Types Packs/Day Years Used Date Smoking Tobacco: Never Assessed Sex and Gender Information Value Date Recorded Sex Assigned at Not on file 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 Gender Identity Not on file Sexual Orientation Not on file documented as of this encounter Plan of Treatment Upcoming Encounters Date Type Department Care Team (Late st Contact Info) Description 11/10/2024 1:00 PM CDT Appointment [facility] Cardiac and Pulmonary Rehabilitation [address] [place] [phone] Xander Byrnes MD [address] [place] [phone] 11/12/2024 1:00 PM CDT Appointment [facility] Cardiac and Pulmonary [address] [phone] Xander Byrnes MD [address] [place] [phone] 11/14/2024 1:00 PM CDT Appointment [facility] Cardiac and Pulmonary Rehabilitation [address] [phone] Xander Byrnes MD [address] [place] [phone] 11/19/2024 1:00 PM CDT Appointment [facility] Cardiac and Pulmonary Rehabilitation [address] [phone] Xander Byrnes MD [address] [place] [phone] 11/21/2024 1:00 PM CDT Appointment [facility] Cardiac and Pulmonary Rehabilitation [address] [phone] Xander Byrnes MD [address] [place] [phone] 11/24/2024 1:00 PM CDT Appointment [facility] Cardiac and Pulmonary Rehabilitation [address] [phone] Xander Byrnes MD [address] [place] [phone] 11/26/2024 1:00 PM CDT Appointment [facility] Cardiac and Pulmonary Rehabilitation [address] [phone] Xander Byrnes MD [address] [place] [phone] 11/28/2024 3:00 PM CDT Appointment [facility] Cardiac and Pulmonary Rehabilitation [address] [phone] Xander Byrnes MD [address] [place] [phone] 12/01/2024 1:00 PM CDT Appointment [facility] Cardiac and Pulmonary Rehabilitation [address] [address] Xander Byrnes MD [address] [place] [phone] 12/03/2024 1:00 PM CDT Appointment [facility] Cardiac and Pulmonary Rehabilitation [address] [address] Xander Byrnes MD [address] [place] [phone] 12/08/2024 1:00 PM CDT Appointment [facility] Cardiac and Pulmonary Rehabilitation [address] [phone] Xander Byrnes MD [address] [place] [phone] documented as of this encounter Visit Diagnoses Not on filedocumented in this encounter Care Teams Cookie Mixer Helper Relationship Specialty [place] [address] [place] [address] PCP - General Family Medicine 10/03/24 documented as of this encounter
--- OUTSIDE RECORDS SUMMARY | 2024-11-05 12:50 | XMS_ITS | Encounter Summary ---
Author Organization [address] [address] Care Team Providers Care Tire Mechanic Name Role Phone Sha Pedroza MD Primary Care Provider [phone] Reason for Visit * Rehab Therapy Cardiac Therapy (Routine) - Authorized Specialty Diagnoses / Procedures Referred By Nicole streeter Referred To Contact CARDIAC REHAB Diagnoses Chronic systolic heart failure (H) [address] [address] Phone: tel: Referral ID Status Reason Start Date Expiration Date V isits Requested Visits Authorized [id number] Authorized 10/03/2024 03/18/2025 36 36 Encounter Details Date Type Department Care Team (Latest Contact Info) Description 11/05/2024 12:50 PM CDT - 11/05/2024 11:59 PM CDT Hospital Encounter [facility] Cardiac and Pulmonary Rehabilitation [address] [phone] Xander Byrnes MD [address] [place] [phone] Discharge Disposition: Home or Self Care Social History Tobacco Use Types Packs/Day Years Used Date Smoking Tobacco: Never Assessed Sex and Gender Information Value Date Recorded Sex Assigned at Not on file 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 Cardiac and Pulmonary [address] [address] Xander Byrnes MD [address] [place] [phone] 11/14/2024 1:00 PM CDT Appointment [facility] Cardiac and Pulmonary Rehabilitation [address] [phone] Xander Byrnes MD [address] [place] [phone] 11/19/2024 1:00 PM CDT Appointment [facility] Cardiac and Pulmonary Rehabilitation [address] [phone] Xander Byrnes MD [address] [place] [phone] 11/21/2024 1:00 PM CDT Appointment [facility] Cardiac and Pulmonary Rehabilitation [address] [phone] Xander Byrnes MD [address] [place] [phone] 11/24/2024 1:00 PM CDT Appointment [facility] Cardiac and Pulmonary Rehabilitation [address] [phone] Xander Byrnes MD [address] [place] [phone] 11/26/2024 1:00 PM CDT Appointment [facility] Cardiac and Pulmonary Rehabilitation [address] [phone] Xander Byrnes MD [address] [place] [phone] 11/28/2024 3:00 PM CDT Appointment [facility] Cardiac and Pulmonary Rehabilitation [address] [phone] Xander Byrnes MD [address] [place] [phone] 12/01/2024 1:00 PM CDT Appointment [facility] Cardiac and Pulmonary Rehabilitation [address] [phone] Xander Byrnes MD [address] [place] [phone] 12/03/2024 1:00 PM CDT Appointment [facility] Cardiac and Pulmonary Rehabilitation [address] [phone] Xander Byrnes MD [address] [place] [phone] 12/08/2024 1:00 PM CDT Appointment [facility] Cardiac and Pulmonary Rehabilitation [address] [phone] Xander Byrnes MD [address] [place] [phone] documented as of this encounter Visit Diagnoses Not on filedocumented in this encounter Care Teams Tire Mechanic Relationship Specialty [place] [address] [place] [address] PCP - General Family Medicine 10/03/24 documented as of this encounter
--- OUTSIDE RECORDS SUMMARY | 2024-11-07 13:00 | XMS_ITS | Encounter Summary ---
Author Organization [address] [address] Care Team Providers Care Physician'S Assistant Name Role Phone Sha Pedroza MD Primary Care Provider [phone] Reason for Visit * Rehab Therapy Cardiac Therapy (Routine) - Authorized Specialty Diagnoses / Procedures Referred By Nicole streeter Referred To Contact CARDIAC REHAB Diagnoses Chronic systolic heart failure (H) [address] [address] Phone: tel: Referral ID Status Reason Start Date Expiration Date V isits Requested Visits Authorized [id number] Authorized 10/03/2024 03/18/2025 36 36 Encounter Details Date Type Department Care Team (Latest Contact Info) Description 11/07/2024 1:00 PM CDT - 11/07/2024 11:59 PM CDT Hospital Encounter [facility] Cardiac and Pulmonary Rehabilitation [address] [address] Xander Byrnes MD [address] [place] [phone] Arrived Discharge Disposition: Home or Self Care Social History Tobacco Use Types Packs/Day Years Used Date Smoking Tobacco: Never Assessed Sex and Gender Information Value Date Recorded Sex Assigned at Not on file 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 Gender Identity Not on file Sexual Orientation Not on file documented as of this encounter Plan of Treatment Upcoming Encounters Date Type Department Care Team (Late st Contact Info) Description 11/10/2024 1:00 PM CDT Appointment [facility] Cardiac and Pulmonary Rehabilitation [address] [place] [phone] Xander Byrnes MD [address] [place] [phone] 11/12/2024 1:00 PM CDT Appointment [facility] Card[facility] Pulmonary [address] [address] Xander Byrnes MD [address] [place] [phone] 11/14/2024 1:00 PM CDT Appointment [facility] Cardiac and Pulmonary Rehabilitation [address] [address] Xander Byrnes MD [address] [place] [phone] 11/19/2024 1:00 PM CDT Appointment [facility] Card[facility] and Pulmonary Rehabilitation [address] [phone] Xander Byrnes MD [address] [place] [phone] 11/21/2024 1:00 PM CDT Appointment [facility] Cardiac and Pulmonary Rehabilitation [address] [address] Xander Byrnes MD [address] [place] [phone] 11/24/2024 1:00 PM CDT Appointment [facility] Card[facility] Pulmonary Rehabilitation [address] [address] Xander Byrnes MD [address] [place] [phone] 11/26/2024 1:00 PM CDT Appointment [facility] Card[facility] Pulmonary Rehabilitation [address] [address] Xander Byrnes MD [address] [place] [phone] 11/28/2024 3:00 PM CDT Appointment [facility] Rehabilitation [address] [phone] Xander Byrnes MD [address] [place] [phone] 12/01/2024 1:00 PM CDT Appointment [facility] Cardiac [facility] Pulmonary Rehabilitation [address] [address] Xander Byrnes MD [address] [place] [phone] 12/03/2024 1:00 PM CDT Appointment [facility] Pul[facility] Rehabilitation [address] [address] Xander Byrnes MD [address] [place] [phone] 12/08/2024 1:00 PM CDT Appointment [facility] Card[facility] Pulmonary Rehabilitation [address] [phone] Xander Byrnes MD [address] [place] [phone] documented as of this encounter Visit Diagnoses Not on filedocumented in this encounter Care Teams Physician'S Assistant Relationship Specialty [place] [address] [place] [address] PCP - General Family Medicine 10/03/24 documented as of this encounter
[2024-11-09] VITALS (24 sets, daily range): BP systolic 87–113; BP diastolic 52–72; PULSE 78–107; RESP 13–20; TEMP 36.9–37.6; O2SAT 88–100; BMI 26.4
--- OUTSIDE RECORDS SUMMARY | 2024-11-09 16:35 | XMS_ITS | Encounter Summary ---
Author Organization [facility] Address [address] [place] [address] Care Team Providers Care Glass Products Inspector Name Role Phone Elsewhere, Pcp Primary Care Provider Unavailabl e Encounter Details Date Type Department Care Team (Latest Contact Info) Description 11/04/2024 Results Follow-Up Department of Cardiovascular Diseases in [place], [place] [address] [place] [phone] Mark Mckeon M.D. [address] [place] [phone] Sodium, Potassium, Creatinine with Estimated GFR, Additional followed-up results: 2 Social History Tobacco Use Types Packs/Day Years Used Date Smoking Tobacco: Former Cigarettes 1 2018 Smokeless Tobacco: Former Snuff Comments:Nicotine pouches Alcohol Use Standard Drinks/Week Comments Not Currently 0 (1 standard drink = 0.6 oz pur e alcohol) [facility] Utilities Answer Date Recorded In the past 12 months has e [employer], gas, oil, or water [employer] threatened to shut off services in your [...] your living situation today? 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 [address] [place] [address] 11/28/2024 9:30 AM CDT Appointment Department of Cardiovascular Diseases in [place], [place] [address] [place] [phone] Xander Byrnes M.D. [address] [place] [phone] documented as of this encounter Visit Diagnoses Not on filedocumented in this encounter Care Teams Glass Products Inspector Relationship Specialty Start Date End Date Elsewhere, Pcp PCP - General Internal Medicine 08/21/24 documented as of this encounter
--- OUTSIDE RECORDS SUMMARY | 2024-11-09 16:36 | XMS_ITS | Clinical Summary ---
Author Organization [facility] Address [address] [place] [address] Care Team Providers Care Pile Operator Name Role Phone Elsewhere, Pcp Primary Care Provider Unavailabl e Source Comments Patient records contain information from all sites at [facility]. For routine questions regarding patient records, call [phone] during business hours, M-F 8:00 AM - 5:00 PM Central Time. Record requests for emergency care only can be directed to [phone] at any time.[facility] Allergies No known active allergies Medications * This document contains information received from the source organization and may not represent a complete record from that organization. lisinopriL 20 mg tablet Take 20 mg by mouth daily. 02/22/2024 Active sildenafiL (Viagra) 100 mg tablet Take 100 mg by mouth at bedtime as needed. 02/22/2024 Active aspirin 81 mg chewable tablet Chew 1 tablet (81 mg total) daily. 08/28/2024 Active atorvastatin (Lipitor) 40 mg tablet Take 1 tablet (40 mg total) by mouth at bedtime. 30 tablet 08/27/2024 08/28/19 26 Active carvediloL (Coreg) 6.25 mg tablet Take 1 tablet (6.25 mg total) by mouth 2 (two) times a day with meals. 60 tablet 08/27/2024 08/28/19 26 Active empagliflozin (Jardiance) 10 mg tabletIndication s:Arrest Cardiac (HCC),Congestive Heart Failure Ejection Fraction Less Than [address] [facility] [employer] Class 2-3 (HCC) Take 1 tablet (10 mg total) by mouth daily before morning meal. 30 tablet 08/28/2024 08/29/19 26 Active spironolactone (Aldactone) 25 mg tablet Take 1 tablet (25 mg total) by mouth daily. 30 tablet 08/28/2024 08/29/19 26 Active Active Problems Problem Noted Date Diagnosed Date Arrest Cardiac 08/21/2024 Assessment & Plan (11/04/2024 11:37 AM CDT): Orders: Sodium; Future Potassium; Future Creatinine with Estimated GFR; Future Echo Transthoracic (TTE); Future ECG 12 Lead; Future Cardiopulmonary (VO2) Exercise Test; Future Encounters * This document contains information received from the source organization and may not represent a complete record from that organization. Date Type Department Care Team Description 11/04/2024 Results Follow-Up Department of Cardiovascular Diseases in [address] [phone] Mark Mckeon M.D. Sodium, Potassium, Creatinine with Estimated GFR, Additional followed-up results: 2 10/29/2024 11:12 AM CDT - 10/29/2024 11:59 PM CDT Hospital Encounter Department of Laboratory Medicine in [address] [address] Mark Mckeon M.D. Arrest Cardiac (HCC); Abnormal Laboratory Results Discharge Disposition: Home or Self Care 10/29/2024 10:45 AM CDT Office Visit Department of Cardiovascular Diseases in [address] [phone] Mark Mckeon M.D. Arrest Cardiac (HCC) (Primary Dx); Abnormal Laboratory Results; Fatigue 10/22/2024 Results Follow-Up Department of Cardiovascular Diseases in [address] [phone] Mark Mckeon M.D. MR Cardiac without and with IV Contrast 10/21/2024 10:04 AM CDT - 10/21/2024 11:59 PM CDT Hospital Encounter Department of Cardiovascular Diseases in [address] [phone] Xander Byrnes M.D. Arrest Cardiac (HCC) Discharge Disposition: Home or Self Care 10/21/2024 10:04 AM CDT - 10/21/2024 11:59 PM CDT Hospital Encounter Department of Radiology, [facility], in [address] [phone] Taina Owens P.A.-C. Arrest Cardiac (HCC); Congestive Heart Failure Ejection Fraction Less Than [address] [facility] [employer] Class 2-3 (HCC) Discharge Disposition: Home or Self Care 10/20/2024 Results Follow-Up Department of Medical Genetics in [place], [place] [address] [place] [address] Carlos Enrique Real, Arunicemya CRONIN Misc. [employer]. Sent Out Lab 10/20/2024 Documentation Department of Medical Genetics in [place], [place] [address] [place] [address] Carlos Enrique Real, Sienna CRONIN CV Genetic Test Result - Negative 10/07/2024 3:11 PM CDT - 10/07/2024 11:59 PM CDT Hospital Encounter Department of Laboratory Medicine and Pathology, [facility] in [place], [place] [address] [place] [address] Steve Hoyos M.D. Arrest Cardiac (HCC) Discharge Disposition: Home or Self Care 10/07/2024 2:15 PM CDT Comprehensive Visit Department of Cardiovascular Medicine in [place], [place] [address] [place] [address] Yudith Childs P.A.-C. Kendal Huff, M.S., [facility] [place] Arrest Cardiac (HCC) (Primary Dx) 09/23/2024 Clinical Communication Department of Cardiovascular Diseases in [address] [phone] Xander Byrnes M.D. [facility] Form ([facility] Cardiac Rehab Order) 09/16/2024 10:30 AM CDT Clinical Support Department of Nutrition in [address] [phone] Taina Owens P.A.-C. Zoila Conn RDN, LD Congestive Heart Failure Ejection Fraction Less Than [address] [facility] [employer] Class 2-3 (HCC) Discharge Disposition: Home or Self Care 09/08/2024 Orders Only Department of Cardiovascular Diseases in [address] [phone] Taina Owens P.A.-C. Congestive Heart Failure Ejection Fraction Less Than [address] [facility] [employer] Class 2-3 (HCC) (Primary Dx) 09/05/2024 Clinical Communication [facility] JJ [phone] Liz Carr, L.S.W. 09/04/2024 8:40 AM CDT - 09/04/2024 11:59 PM CDT Hospital Encounter Department of Cardiovascular Diseases in [address] [phone] Xander Byrnes M.D. Arrest Cardiac (HCC) Discharge Disposition: Home or Self Care 09/04/2024 Clinical Communication [facility] [phone] Liz Crar, L.S.W. Case Management 09/04/2024 Orders Only Department of Cardiovascular Diseases in [address] [phone] Mary Amaral, R.N. Arrest Cardiac (HCC) (Primary Dx) 09/04/2024 Orders Only Department of Cardiovascular Diseases in [address] [phone] Mary Amaral R.N. Arrest Cardiac (HCC) (Primary Dx) 08/28/2024 Orders Only Department of Cardiovascular Diseases in [address] [phone] Vane Le R.N. Arrest Cardiac (HCC) (Primary Dx) 08/28/2024 Clinical Communication Department of Cardiac Rehabilitation in [address] [phone] Shahla Gomez R.N. Cardiac Rehab 08/27/2024 Clinical Communication Department of Cardiovascular Diseases in [address] [phone] Taina Owens P.A.-C. 08/27/2024 Clinical Communication Department of Radiology, [facility], in [address] [address] Taina Owens P.A.-C. MRI with Cardiac Device 08/26/2024 3:25 PM CDT Ancillary Procedure Department of Nursing 08/26/2024 1:00 PM CDT - 08/26/2024 3:00 PM CDT Surgery Department of Cardiovascular Diseases in [address] [phone] Xander Byrnes M.D. ICD IMPLANT - SINGLE CHAMBER 08/24/2024 11:00 AM CDT - 08/24/2024 12:15 PM CDT Surgery Department of Cardiovascular Diseases in [address] [phone] Alon Suazo M.D. Coronary Angiography 08/21/2024 7:19 AM CDT - 08/27/2024 2:23 PM CDT Hospital Encounter [facility], [facility], Third Floor [address] [place] [phone] Erick Baldwin M.D. Das Kapoor, Subhraleena, M.D. Jama, Shire, M.D. Reinier Blair M.B., Ch.B. Arrest Cardiac (HCC) (Primary Dx); Congestive Heart Failure Ejection Fraction Less Than [address] [facility] [employer] Class 2-3 (HCC) Discharge Disposition: Home or Self Care 08/21/2024 5:47 AM CDT - 08/21/2024 7:00 AM CDT Emergency [facility] [address] [place] [address] Luigi Pascal M.D. Arrest Cardiac (HCC) (Primary Dx) Discharge Disposition: Acute Care Hospital from Last 3 Months Family History Medical History Relation Name Comments Cancer Half-Brother 2 colon or panc reatic Smoker Maternal Grandmother Diabetes Mother Hypertension Mother Relation Name Status Comments Brother Alive Father (Age 70s) d. 2001, TBI Half-Brother 1 Alive Half-Brother 2 (Age 60s) d. canc er Half-Sister 1 Alive Half-Sister 2 Alive Maternal Grandfather (Age 80s) Maternal Grandmother (Age 80s) Mother Alive Mother's Brother 1 d. sudden ly, suspected broken heart syndrome Mother's Brother 2 Alive Mother's Brother 3 Alive Mother's Sister 1 Alive Mother's Sister 2 Alive Other 1 Alive Other 2 Alive Paternal Grandfather Paternal Grandmother Sister 1 Alive Sister 2 Alive Son Alive Social History Tobacco Use Types Packs/Day Years Used Date Smoking Tobacco: Former Cigarettes 1 - 2018 Smokeless Tobacco: Former Snuff Tobacco Cessation:Counseling Given: Not Answered Comments:Nicotine pouches Alcohol Use Standard Drinks/Week Comments Not Currently 0 (1 standard drink = 0.6 oz pur e alcohol) [facility] Utilities Answer Date Recorded In the past 12 months has e [employer], gas, oil, or water [employer] threatened to shut off services in your [...] money to buy more. Never true 09/14/19 Within the past 12 months, t he [...] your living situation today? 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 Gender Identity Male 09/13/2024 9:29 AM CDT Sexual Orientation Straight 09/13/2024 9: 29 AM CDT Last Filed Vital Signs Vital Sign Reading Time Taken Comments Blood Pressure 95/60 10/29/2024 10:23 AM CDT Pulse 67 10/29/2024 10:20 AM CDT Temperature 36.9 C (98.4 F) 08/27/2024 6:05 AM CDT Respiratory Rate 16 08/27/2024 6:05 AM CDT Oxygen Saturation 99% 10/29/2024 10:20 AM CDT Inhaled Oxygen Concentration - - Weight 91 kg (200 lb 9.9 oz) 10/29/2024 10:20 AM CDT Height 182.9 cm (6' 0.01) 08/22/2024 12:18 AM C DT Body Mass Index 27.2 08/22/2024 12:18 AM CDT Plan of Treatment Upcoming Encounters Date Type Department Care Team (Late st Contact Info) Description 11/18/2024 8:30 AM CDT Appointment Department of Cardiovascular Diseases in [place], [place] [address] [place] [address] Mark Mckeon M.D. [address] [place] [phone] 11/28/2024 9:30 AM CDT Appointment Department of Cardiovascular Diseases in [place], [place] [address] [place] [address] Xander Byrnes M.D. [address] [place] [phone] Health Maintenance Due Date Last Done Comments CT Colonography 1976 Cologuard 1976 FIT 1976 Hepatitis C Screening 1975 Hepatitis B Vaccines (1 of 3 - 19+ 3-dose series) 02/27/1995 COVID-19 Vaccine (3 - 2023- season) 2023 11/28/2020, 10/30/2020 DTaP,Tdap,and Td Vaccines (2 - Td or Tdap) 12/10/2023 12/09/2013, 03/18/2000 Depression Screening (Annual PHQ-2) 03/19/2024 Influenza Vaccine (#1) 2024 , 12/31/2019, 12/18/2018, Additional history exists Creatinine Level (Kidney Function Test) 10/29/2025 10/29/2024, 08/27/2024, 08/26/2024, Additional history exists Potassium Level 10/29/2025 10/29/2024, 08/17, 08/26/2024, Additional history exists Sodium Level 10/29/2025 10/29/2024, 08/17, 08/26/2024, Additional history exists Fasting Glucose for Diabetes Screening 08/28/2027 08/27/2024, 08/26/2024, 08/25/2024, Additional history exists Lipid (Cholesterol) Screening 08/27/2029 08/27/2024 Colonoscopy 01/12/2033 01/12/2023 Colorectal Cancer Screening 01/12/2033 IPV Vaccines Aged Out No longer eligi ble based on patient's age to complete this topic Pneumococcal vaccine (0-49 years) Aged Out No longer eligible based on patient's age to complete this topic Medical Devices Implanted Type Area Hearing Therapist Device Identifier Shelf Expiration Date Model / Serial / Lot Lead Icd Qutro Secure S Df4 62 - [id number] - [id number] Implanted:Qty: 1 on 08/26/2024 by Xander Byrnes M.D. at [facility] Cardiac Lead Heart [employer] 04/28/2026 [id number] / [id number] / Description:1.5T and 3T Cond itional lead Icd Cbl Xt Vr Df4 [id number] - [id number] - [id number] Implanted:Qty: 1 on 08/26/2024 by Xander Byrnes M.D. at [facility] Implant Cardiac Defibrillator Left: Chest [employer] 02/13/2025 [id number] / [id number] / Description:1.5 T MRI radio frequency (RF) power Normal Operating Mode. - The whole body averaged specific absorption rate (EMIR) must be = 2.0 W/kg. - The head EMIR must be = 3.2 W/kg. 3 T MRI radio frequency (RF) power First Level Controlled Operating Mode or Normal Operating Mode: - B1+TL must be = 2.8 T when the isocenter (center of the MRI bore) is inferior to the C7 vertebra. - Scans can be performed without B1+RMSrestriction when the isocenter is at or superior to the C7 vertebra. Procedures Procedure Name Priority Date/Time Associated Diagnosis Comments ALANINE AMINOTRANSFERASE (ALT), S/P Routine 10/29/2024 11:20 AM CDT Abnormal Laboratory Results ASPARTATE AMINOTRANSFERASE (AST), S/P Routine 10/29/2024 11:20 AM CDT Abnormal Laboratory Results CREATININE WITH EGFR, S/P Routine 10/29/2024 11:20 AM CDT Arrest Cardiac (HCC) POTASSIUM, S/P Routine 10/29/2024 11:20 AM CDT Arrest Cardiac (HCC) SODIUM, S/P Routine 10/29/2024 11:20 AM CDT Arrest Cardiac (HCC) ICD SINGLE CHAMBER INTERROGATION WITH PROGRAMMING Routine 10/21/2024 1:17 PM CDT Arrest Cardiac (HCC) MR CARDIAC WITHOUT AND WITH IV CONTRAST RAD - Routine (most inpatients and all outpatients) 10/21/2024 12:45 PM CDT Arrest Cardiac (HCC) Congestive Heart Failure Ejection Fraction Less Than [address] [facility] [employer] Class 2-3 (HCC) MISCELLANEOUS SENT OUT LAB TEST Routine 10/08/2024 8:22 AM CDT Arrest Cardiac (HCC) [place] A PartagerC. Influitive Routine 10/07/2024 3:29 PM CDT ICD SINGLE CHAMBER INTERROGATION WITH PROGRAMMING Routine 09/04/2024 9:28 AM CDT Arrest Cardiac (HCC) ICD SINGLE CHAMBER INTERROGATION WITH PROGRAMMING Routine 08/27/2024 8:59 AM CDT LIPID PANEL, S Routine 08/27/2024 7:21 AM CDT CBC WITH DIFFERENTIAL, B Routine 08/27/2024 7:21 AM CDT BASIC METABOLIC PANEL, S/P Routine 08/27/2024 7:21 AM CDT DX CHEST PORTABLE 1 VIEW 08/27/2024 6:38 AM CDT ECG Routine 08/27/2024 6:17 AM CDT ECG Routine 08/26/2024 8:00 PM CDT NURSING IMAGE EXAM Routine 08/26/2024 3: 25 PM CDT HEART RHYTHM PROCEDURE Routine 2:49 PM CDT Arrest Cardiac (HCC) PEP THERAPY Routine 08/26/2024 11:00 AM CDT CONTINUOUS PULSE OXIMETRY Routine 08/26/2024 8:00 AM CDT PEP THERAPY Routine 08/26/2024 7:00 AM CDT ECG Routine 08/26/2024 7:00 AM CDT ECG Routine 08/26/2024 7:00 AM CDT CBC WITH DIFFERENTIAL, B Routine 08/26/2024 5:46 AM CDT BASIC METABOLIC PANEL, S/P Routine 08/26/2024 5:46 AM CDT PEP THERAPY Routine 08/26/2024 3:00 AM CDT PEP THERAPY Routine 08/25/2024 11:01 PM CDT CONTINUOUS PULSE OXIMETRY Routine 08/25/2024 8:00 PM CDT ECG Routine 08/25/2024 7:54 PM CDT PEP THERAPY Routine 08/25/2024 3:00 PM CDT CONTINUOUS PULSE OXIMETRY Routine 08/25/2024 8:00 AM CDT BASIC METABOLIC PANEL, S/P Routine 08/25/2024 6:38 AM CDT CBC WITH DIFFERENTIAL, B Routine 08/25/2024 6:38 AM CDT ECG Routine 08/25/2024 6:18 AM CDT ECG Routine 08/24/2024 8:07 PM CDT CONTINUOUS PULSE OXIMETRY Routine 08/24/2024 8:00 PM CDT PEP THERAPY Routine 08/24/2024 3:00 PM CDT GLUCOSE POCT, B Routine 08/24/2024 2:01 PM CDT CARDIAC CATHETERIZATION Routine 08/24/2024 12:34 PM CDT Arrest Cardiac (HCC) CARDIAC CATHETERIZATION Routine 08/24/2024 12:34 PM CDT Arrest Cardiac (HCC) ECG Routine 08/24/2024 11:07 AM CDT PEP THERAPY Routine 08/24/2024 11:00 AM CDT GLUCOSE POCT, B Routine 08/24/2024 8:15 AM CDT CONTINUOUS PULSE OXIMETRY Routine 08/24/2024 8:00 AM CDT PATIENT STATUS Routine 08/24/2024 7:46 AM CDT ABG W/O COOX Routine 08/24/2024 7:46 AM CDT HEPARIN LEVEL ANTI-XA ASSAY, P Routine 08/24/2024 7:45 AM CDT CBC WITH DIFFERENTIAL, B Routine 08/24/2024 7:45 AM CDT ELECTROLYTE (CHEM 4) PANEL, S/P Routine 08/24/2024 7:45 AM CDT PEP THERAPY Routine 08/24/2024 7:00 AM CDT PEP THERAPY Routine 08/24/2024 3:00 AM CDT PEP THERAPY Routine 08/23/2024 11:00 PM CDT CONTINUOUS PULSE OXIMETRY Routine 08/23/2024 8:00 PM CDT ECG Routine 08/23/2024 8:00 PM CDT PEP THERAPY Routine 08/23/2024 7:00 PM CDT GLUCOSE POCT, B Routine 08/23/2024 4:31 PM CDT PEP THERAPY Routine 08/23/2024 3:00 PM CDT MAGNESIUM, S Timed 08/23/2024 1:54 PM CDT BASIC METABOLIC PANEL, S/P Timed 08/23/2024 1:54 PM CDT GLUCOSE POCT, B Routine 08/23/2024 11:27 AM CDT PEP THERAPY Routine 08/23/2024 11:00 AM CDT CONTINUOUS PULSE OXIMETRY Routine 08/23/2024 8:00 AM CDT ECG Routine 08/23/2024 7:53 AM CDT NEURON-SPECIFIC ENOLASE (NSE), S Timed 08/23/2024 7:20 AM CDT PEP THERAPY Routine 08/23/2024 7:00 AM CDT PATIENT STATUS Routine 08/23/2024 4:16 AM CDT HEPARIN LEVEL ANTI-XA ASSAY, P Routine 08/23/2024 4:16 AM CDT CBC WITH DIFFERENTIAL, B Routine 08/23/2024 4:16 AM CDT ELECTROLYTE (CHEM 4) PANEL, S/P Routine 08/23/2024 4:16 AM CDT ABG W/O COOX Routine 08/23/2024 4:16 AM CDT PHOSPHORUS (INORGANIC), S STAT 08/23/2024 4:11 AM CDT MAGNESIUM, S STAT 08/23/2024 4:11 AM CDT CONTINUOUS PULSE OXIMETRY Routine 08/22/2024 8:00 PM CDT GLUCOSE POCT, B Routine 08/22/2024 7:53 PM CDT ECG Routine 08/22/2024 7:43 PM CDT MAGNESIUM, S STAT 08/22/2024 5:48 PM CDT BASIC METABOLIC PANEL, S/P STAT 08/22/2024 5:48 PM CDT GLUCOSE POCT, B Routine 08/22/2024 5:47 PM CDT IMMUNOGLOBULIN FREE LIGHT CHAINS, S Routine 08/22/2024 4:04 PM CDT QUANTITATIVE M-PROTEIN STUDY, S Routine 08/22/2024 4:04 PM CDT ALPHA-GALACTOSIDASE, S Routine 4:04 PM CDT FERRITIN, S Routine 08/22/2024 4:04 PM CDT IRON AND TOT IRON-BINDING CAPACITY, S/P Routine 08/22/2024 4:04 PM CDT PEP THERAPY Routine 08/22/2024 3:00 PM CDT EEG ROUTINE - AWAKE AND SLEEP Routine 08/22/2024 1:30 PM CDT GLUCOSE POCT, B Routine 08/22/2024 12:34 PM CDT LACTATE, B STAT 08/22/2024 12:34 PM CDT PATIENT STATUS Timed 08/22/2024 12:34 PM CDT ABG W/COOX Timed 08/22/2024 12:34 PM CDT PEP THERAPY Routine 08/22/2024 11:36 AM CDT PEP THERAPY Routine 08/22/2024 11:36 AM CDT PEP THERAPY Routine 08/22/2024 11:36 AM CDT PEP THERAPY Routine 08/22/2024 11:36 AM CDT PEP THERAPY Routine 08/22/2024 11:36 AM CDT PEP THERAPY Routine 08/22/2024 11:36 AM CDT EXTUBATION Routine 08/22/2024 11:36 AM CDT GLUCOSE POCT, B Routine 08/22/2024 10:33 AM CDT GLUCOSE POCT, B Routine 08/22/2024 8:15 AM CDT CONTINUOUS PULSE OXIMETRY Routine 08/22/2024 8:00 AM CDT GLUCOSE POCT, B Routine 08/22/2024 6:00 AM CDT PATIENT STATUS Routine 08/22/2024 4:40 AM CDT ELECTROLYTE (CHEM 4) PANEL, S/P STAT 08/22/2024 4:40 AM CDT ABG W/O COOX Routine 08/22/2024 4:40 AM CDT ECG Routine 08/22/2024 4:33 AM CDT GLUCOSE POCT, B Routine 08/22/2024 4:16 AM CDT HEPARIN LEVEL ANTI-XA ASSAY, P Timed 08/22/2024 2:50 AM CDT HEPATIC FUNCTION PANEL, S Routine 08/22/2024 2:50 AM CDT CBC WITH DIFFERENTIAL, B Routine 08/22/2024 2:50 AM CDT GLUCOSE POCT, B Routine 08/22/2024 2:15 AM CDT GLUCOSE POCT, B Routine 08/21/2024 11:52 PM CDT PATIENT STATUS Timed 08/21/2024 11:52 PM CDT ELECTROLYTE (CHEM 4) PANEL, S/P Timed 08/21/2024 11:52 PM CDT ABG W/O COOX Timed 08/21/2024 11:52 PM CDT GLUCOSE POCT, B Routine 08/21/2024 10:07 PM CDT GLUCOSE POCT, B Routine 08/21/2024 9:08 PM CDT ECG STAT 08/21/2024 8:12 PM CDT HEPARIN LEVEL ANTI-XA ASSAY, P Timed 08/21/2024 8:05 PM CDT PATIENT STATUS Timed 08/21/2024 8:05 PM CDT ELECTROLYTE (CHEM 4) PANEL, S/P Timed 08/21/2024 8:05 PM CDT ABG W/O COOX Timed 08/21/2024 8:05 PM CDT CONTINUOUS PULSE OXIMETRY Routine 08/21/2024 8:00 PM CDT GLUCOSE POCT, B Routine 08/21/2024 4:16 PM CDT ELECTROLYTE (CHEM 4) PANEL, S/P Timed 08/21/2024 4:16 PM CDT ECG MONITOR RECORD 08/21/2024 2: 26 PM CDT ACTIVATED PARTIAL THROMBOPLASTIN TIME (APTT), P STAT 08/21/2024 2:18 PM CDT NASAL SCREEN FOR MRSA BY RAPID PCR Routine 08/21/2024 1:59 PM CDT GRAM STAIN Routine 08/21/2024 1:56 PM CDT BACTERIAL CULTURE, AEROBIC + SUSC, RESP Routine 08/21/2024 1:56 PM CDT PNEUMONIA PANEL, PCR Routine 08/21/2024 1:56 PM CDT GLUCOSE POCT, B Routine 08/21/2024 1:39 PM CDT ECG Routine 08/21/2024 12:53 PM CDT PATIENT STATUS STAT 08/21/2024 12:52 PM CDT ABG W/COOX STAT 08/21/2024 12:52 PM CDT HEPATIC FUNCTION PANEL, S STAT 08/21/2024 12:51 PM CDT LACTATE, B STAT 08/21/2024 12:51 PM CDT TROPONIN T, 5TH GEN, P STAT 12:51 PM CDT TROPONIN T, 5TH GEN, P Timed 12:13 PM CDT PATIENT STATUS Timed 08/21/2024 12:13 PM CDT ELECTROLYTE (CHEM 4) PANEL, S/P Timed 08/21/2024 12:13 PM CDT ABG W/O COOX Timed 08/21/2024 12:13 PM CDT GLUCOSE POCT, B Routine 08/21/2024 11:39 AM CDT (TTE) 2D ECHO DOPPLER COLOR AND CONTRAST Routine 08/21/2024 9:26 AM CDT LIPASE, S/P STAT 08/21/2024 9:14 AM CDT CREATINE KINASE (CK), S STAT 08/21/2024 9:14 AM CDT AMMONIA STAT 08/21/2024 9:14 AM CDT TROPONIN T, 5TH GEN, P STAT 9:14 AM CDT POTASSIUM, S/P STAT 08/21/2024 9:14 AM CDT GLUCOSE POCT, B Routine 08/21/2024 8:44 AM CDT HC URINALYSIS AUTO WO MICRO STAT 08/21/2024 8:35 AM CDT URINALYSIS WITH MICROSCOPIC IF INDICATED, U STAT 08/21/2024 8:35 AM CDT DRUG SCREEN URINE STAT 08/21/2024 8:3 5 AM CDT LIPASE, S/P Routine 08/21/2024 8:09 AM CDT PATIENT STATUS STAT 08/21/2024 8:09 AM CDT ABG W/O COOX STAT 08/21/2024 8:09 AM CDT AMMONIA STAT 08/21/2024 8:09 AM CDT THYROID FUNCTION CASCADE, S STAT 08/21/2024 8:09 AM CDT OSMOLALITY, S STAT 08/21/2024 8:09 AM CDT HIV-1/-2 AG AND AB SCREEN, PLASMA Timed 08/21/2024 8:09 AM CDT DX CHEST PORTABLE 1 VIEW RAD - Semiurgent (Fast; most ED patients; some inpatients) 08/21/2024 8:07 AM CDT ECG Routine 08/21/2024 8:06 AM CDT CONTINUOUS PULSE OXIMETRY Routine 08/21/2024 7:59 AM CDT CONTINUOUS PULSE OXIMETRY Routine 08/21/2024 7:59 AM CDT CONTINUOUS PULSE OXIMETRY Routine 08/21/2024 7:59 AM CDT MECHANICAL VENTILATOR Routine 08/21/2024 7:59 AM CDT MECHANICAL VENTILATOR Routine 08/21/2024 7:59 AM CDT MECHANICAL VENTILATOR Routine 08/21/2024 7:59 AM CDT MECHANICAL VENTILATOR Routine 08/21/2024 7:59 AM CDT MECHANICAL VENTILATOR Routine 08/21/2024 7:59 AM CDT MECHANICAL VENTILATOR Routine 08/21/2024 7:59 AM CDT PH BLOOD GAS STAT 08/21/2024 7:57 AM CDT CALCIUM, IONIZED, S/B STAT 08/21/2024 7:57 AM CDT PHOSPHORUS (INORGANIC), S STAT 08/21/2024 7:57 AM CDT MAGNESIUM, S STAT 08/21/2024 7:57 AM CDT CREATINE KINASE (CK), S STAT 08/21/2024 7:57 AM CDT PROCALCITONIN, S STAT 08/21/2024 7:57 AM CDT ACETAMINOPHEN LEVEL, S STAT 7:57 AM CDT SALICYLATE LEVEL, S STAT 08/21/2024 7 :57 AM CDT TROPONIN T, 5TH GEN, P STAT 7:57 AM CDT LACTATE, B STAT 08/21/2024 7:57 AM CDT ELECTROLYTE (CHEM 4) PANEL, S/P Timed 08/21/2024 7:57 AM CDT PATIENT STATUS STAT 08/21/2024 7:49 AM CDT ABG W/COOX STAT 08/21/2024 7:[address] LUMBAR SPINE BY RECONSTRUCTION RAD - Emergent (Fastest; for the most critically ill patients) 08/21/2024 7:[address] THORACIC SPINE BY RECONSTRUCTION RAD - Emergent (Fastest; for the most critically ill patients) 08/21/2024 7:[address] CHEST ABDOMEN PELVIS ANGIOGRAM WITH IV CONTRAST RAD - Emergent (Fastest; for the most critically ill patients) 08/21/2024 6:[address] CERVICAL SPINE WITHOUT IV CONTRAST RAD - Emergent (Fastest; for the most critically ill patients) 08/21/2024 6:[address] HEAD WITHOUT IV CONTRAST RAD - Emergent ([facility]; for the most critically ill patients) 08/21/2024 6:39 AM CDT VBG (VENOUS BLOOD GAS), POCT, B Routine 08/21/2024 5:57 AM CDT ECG STAT 08/21/2024 5:40 AM CDT MORPHOLOGY EVALUATION STAT 08/21/2024 5:15 AM CDT LACTATE, B/P STAT 08/21/2024 5:15 AM CDT TROPONIN T, BASELINE, 5TH GEN, P STAT 08/21/2024 5:15 AM CDT COMPREHENSIVE METABOLIC PANEL, S/P STAT 08/21/2024 5:15 AM CDT CBC WITH DIFFERENTIAL, B STAT 08/21/2024 5:15 AM CDT AIRWAY MANAGEMENT Routine 08/21/2024 5:0 8 AM CDT [facility] Cardiac (HCC) CRITICAL CARE Routine 08/21/2024 5:08 AM CDT [facility] (HCC) from Last 3 Months Results * (ABNORMAL) ALT (Alanine Aminotransferase) (10/29/2024 11:20 AM CDT) Alanine Aminotransferase (ALT), P 110(H) 7 - 55 U/L 10/29/2024 12:22 PM CDT OWAT Blood (Blood, Venous) 10/29/2024 11:20 AM CDT 10/29/2024 11:26 AM CDT us Mark Mckeon M.D. LAB BLOOD ADD-ON Final Res ult [facility] [address] [place] [address], [facility] in [place] [address] [place] [address] * AST (Aspartate Aminotransferase) (10/29/2024 11:20 AM CDT) Aspartate Aminotransferase (AST), P 39 8 - 48 U/L 10/29/2024 12:22 PM CDT [facility]AT Blood (Blood, Venous) 10/29/2024 11:20 AM CDT 10/29/2024 11:26 AM CDT Mark Mckeon M.D. LAB BLOOD ADD-ON Final Res ult Performing Organization Address [facility] Co de Phone Number [facility] [address] [place] [address], [place] [facility] [place] [address] [place] [address] * Sodium (10/29/2024 11:20 AM CDT) Sodium, P 139 135 - 145 mmol/L 10/29/2024 12:22 PM CDT OWAT Blood (Blood, Venous) 10/29/2024 11:20 AM CDT 10/29/2024 11:26 AM CDT Mark Mckeon M.D. LAB BLOOD ADD-ON Final Res ult Performing Organization Address [facility] Co de Phone Number [facility] [address] [place] [address], [facility] [place] [address] [place] [address] * Potassium (10/29/2024 11:20 AM CDT) Only the most recent of2 resultswithin the time period is included. Potassium, P 4.8 3.6 - 5.2 mmol/L 10/29/2024 12:22 PM CDT OWAT Blood (Blood, Venous) 10/29/2024 11:20 AM CDT 10/29/2024 11:26 AM CDT Mark Mckeon M.D. LAB BLOOD ADD-ON Final Res ult Performing Organization Address City/[facility] Co de Phone Number [facility] [address] [place] [address], [place] [facility] [place] [address] [place] [address] * Creatinine with Estimated GFR (10/29/2024 11:20 [...] ADD-ON Final Res ult Performing Organization Address City/[facility] Co de Phone Number [facility] [address] [place] [address], [place] [facility] [place] [address] [place] [address] * ICD SINGLE CHAMBER INTERROGATION WITH PROGRAMMING (10/21/2024 1:17 PM CDT) Only the most recent of3 resultswithin the time period is included. Date Time Interrogation Session [id number] [facility] Implantable Pulse Generator Hearing Therapist Medtronic [facility] Implantable Pulse Generator Type Defibrillator [facility] Implantable Pulse Generator Model [place] XT VR [id number] [facility] Implantable Pulse Generator Serial Number [id number] [facility] Implantable Pulse Generator Implant Date 20240826 [facility] Battery Voltage 3.090 [facility] Battery TEXTILE DESIGNER Trigger 2.800 [facility] Battery Status OK [facility] Capacitor Charge Time 0.000 [facility] Maurice Statistic RV Percent Paced 0.02 [facility] Atrial Tachy Statistic AT/AF [place] Percent 0.00 [facility] Lead Channel Sensing Intrinsic Amplitude 4.500 [facility] Lead Channel Setting Sensing Sensitivity 0.30 [facility] Lead Channel Impedance Value 342 [facility] Lead Channel Pacing Threshold Amplitude 1.250 [facility] Lead Channel Pacing Threshold Pulse Width 0.4 [facility] Lead Channel Measurements Date and Time 20241021 [facility] Lead Channel Setting Pacing Amplitude 3.500 [facility] Lead Channel Setting Pacing Pulse Width 0.4 [facility] Maurice Setting Mode (NBG Code) VVI [facility] Maurice Setting Lower Rate Limit 40 [facility] Therapy Statistic Recent Shocks Aborted 0 [facility] Therapy Statistic Recent ATP Delivered [...] 3 [facility] Implantable Lead Hearing Therapist Medtronic [facility] Implantable Lead Model [id number] Sprint Quattro Secure S [facility] Implantable Lead Location Right Ventricle [facility] Implantable Lead Connection Status Connected [facility] Implantable Lead Serial Number [id number] [facility] Implantable Lead Implant Date 20240826 [facility] Implantable Lead Special Function Lead length: 62.00 cm [facility] Anatomical Region Laterality Modality Other [...] sensing amplitude and pacingthreshold data was reviewed. us Xander Byrnes M.D. CV IMPLANTABLE CARDIAC DEVIC E Final Result * MR Cardiac without and with IV [...] delayed enhancement involving the basal anteroseptum (25/7). Directr 1.5T scanner ([id number]). Normal [place] T2 values (average 49 ms measured in [...] mid myocardial delayed enhancement involving the basalanteroseptum (10/10). Directr 1.5T scanner ([id number]). Normal [place] T2 values (average 49 msmeasured in the [...] Taina Owens P.A.-C. IMG MRI PROCEDURES Sylwia l Result * [id number] [facility] Comprehensive Panel - Miscellaneous Test (10/08/2024 8:22 AM CDT) Test Name [facility] Co 10/08/2024 8:22 AM CDT HLS Result Specimen sent out; results to follow DEFAULT 10/08/2024 8:22 AM CDT HLS Blood (Blood, Venous) 10/08/2024 8:22 AM CDT 10/08/2024 8:22 AM CDT us Steve Hoyos M.D. LAB MISC ORDERABLES Final Res ult [facility] [address] [place] [address], [facility] [address] [place] [address] * Misc. [employer] Mobile Platform. Sent Out Lab (10/07/2024 3:29 PM CDT) Test Name [facility] Co 10/08/2024 8:22 AM CDT INVC Result SEE COMMENT 10/20/2024 9:01 AM CDT INVC Comment: For final report, select Lab-Send Out Lab Results hyperlink below. 10/07/2024 3:29 PM CDT 10/08/2024 10:21 AM CDT Steve Hoyos M.D. LAB MISC ORDERABLES Final Res ult [facility] [address] [address], [facility] [address] [place] [address] * (ABNORMAL) Lipid Panel (08/27/2024 7:21 AM CDT) Triglycerides 134 mg/dL 08/27/2024 11:28 AM CDT MKTO Comment: ----REFERENCE VALUE---- Normal: <150 mg/dL Borderline High: 150-199 mg/dL High: 200-499 mg/dL Very High: > or =500 mg/dL Cholesterol, Total 133 mg/dL 2024 11:28 AM CDT MKTO Comment: ----REFERENCE VALUE---- Desirable: < 200 mg/dL Borderline High: 200 - 239 mg/dL High: > or = 240 mg/dL Cholesterol, LDL, Calculated 79 mg/dL 08/27/2024 11:28 AM CDT MKTO Comment: ----REFERENCE VALUE---- Desirable: <100 mg/dL Above Desirable: 100-129 mg/dL Borderline High: 130-159 mg/dL High: 160-189 mg/dL Very High: >=190 mg/dL ----ADDITIONAL INFORMATION---- LDL cholesterol calculated using the Cosme/NIH equation. Cholesterol, HDL 30(L) >=40 mg/dL 08/27/2024 11:28 AM CDT MKTO Cholesterol, Non-HDL, Calculated 103 mg/dL 08/27/2024 11:28 AM CDT MKTO Comment: ----REFERENCE VALUE---- Desirable: <130 mg/dL Above Desirable: 130-159 mg/dL Borderline High: 160-189 mg/dL High: 190-219 mg/dL Very High: > or =220 mg/dL Fasting (8 HR or more) Unknown 08/27/2024 11:13 AM CDT MKTO Blood (Blood, Venous) 08/27/2024 7:21 AM CDT 08/27/2024 11:13 AM CDT us Taina Owens P.A.-C. LAB BLOOD ADD-ON Final Result [facility] [address] [place] [address], [facility] MKTO [facility] [place] [address] [place] [address] * CBC with Differential, Blood (08/27/2024 7:21 AM CDT) Only the most recent of7 resultswithin the time period is included. Hemoglobin 16.0 13.2 - 16.6 g/dL 08/27/2024 7:48 AM CDT MKTO Hematocrit 45.7 38.3 - 48.6 % 08/27/2024 7:48 AM CDT [facility]TO Erythrocytes 5.25 4.35 - 5.65 x10(12)/L 08/27/2024 7:48 AM CDT [facility] MCV 87.0 78.2 - 97.9 fL 08/27/2024 7:48 AM CDT MKTO RBC Distrib Width 12.3 11.8 - 14.5 % 08/27/2024 7:48 AM CDT MKTO Platelet Count 256 135 - 317 x10(9)/L 08/27/2024 7:48 AM CDT MKTO Leukocytes 6.1 3.4 - 9.6 x10(9)/L 08/27/2024 7:48 AM CDT MKTO Neutrophils 3.68 1.56 - 6.45 x10(9)/L 08/27/2024 7:48 AM CDT MKTO Lymphocytes 1.72 0.95 - 3.07 x10(9)/L 08/27/2024 7:48 AM CDT MKTO Monocytes 0.55 0.26 - 0.81 x10(9)/L 08/27/2024 7:48 AM CDT MKTO Eosinophils 0.07 0.03 - 0.48 x10(9)/L 08/27/2024 7:48 AM CDT MKTO Basophils 0.04 0.01 - 0.08 x10(9)/L 08/27/2024 7:48 AM CDT MKTO Blood (Blood, Venous) 08/27/2024 7:21 AM CDT 08/27/2024 7:42 AM CDT us Nilton Kay M.D. LAB BLOOD ADD-ON Final Result Performing Organization Address City/[facility]/ZIP Co de Phone Number [facility] [place] [address], [facility] MKTO [facility] [place] [address] [place] [address] * (ABNORMAL) Basic Metabolic Panel (08/27/2024 7:21 AM CDT) Only the most recent of5 resultswithin the time period is included. [facility] Potassium, P 4.3 3.6 - 5.2 mmol/L 08/27/2024 8:06 AM CDT MKTO Sodium, P 134(L) 135 - 145 mmol/L 08/27/2024 8:06 AM CDT MKTO Chloride, P 98 98 - 107 mmol/L 08/27/2024 8:06 AM CDT MKTO Bicarbonate, P 23 22 - 29 mmol/L 08/27/2024 8:06 AM CDT MKTO Anion Gap, P 13 7 - 15 08/27/2024 8:06 AM CDT MKTO BUN (Blood Urea Nitrogen), P 17 8 - 24 mg/dL 08/27/2024 8:06 AM CDT MKTO Creatinine 0.82 0.74 - 1.35 mg/dL 08/27/2024 8:06 AM CDT MKTO Estimated GFR (eGFR) >90 >=60 mL/min/BSA 08/27/2024 8:06 AM CDT MKTO Comment: Estimated GFR calculated using the 2020 CKD_EPI creatinine equation. Calcium, Total, P 9.2 8.6 - 10.0 mg/dL 08/27/2024 8:06 AM CDT MKTO Glucose, P 101 70 - 140 mg/dL 08/27/2024 8:06 AM CDT MKTO Blood (Blood, Venous) 08/27/2024 7:21 AM CDT 08/27/2024 7:42 AM CDT us Nilton Kay M.D. LAB BLOOD ADD-ON Final Result Performing Organization Address City/[facility]/ZIP Co de Phone Number [facility] [address] [place] [address], [facility] [place] [address] [place] [address] * DX Chest Portable 1 View (08/27/2024 6:38 AM CDT) Only the most recent of2 resultswithin the time period is included. Anatomical Region Laterality Modality Chest, Thoracic RST LOS, Tho racic ARZ LOS, Thoracic FLA LOS N/A Digital Radiography Impressions 08/27/2024 7:18 AM CDT 1. Single lead AICD, as detailed. 2. Clear chest. Narrative 08/27/2024 7:18 AM CDT EXAM: DX CHEST PORTABLE 1 VIEW COMPARISON: None. FINDINGS: Tubes, Lines and Devices: Single lead AICD with leads terminating over the expected right ventricular apex. Lungs, Pleura and Airways: No pneumothorax, pleural effusion or focal airspace disease. Normal pulmonary vascular markings. Heart and Mediastinum: Normal heart size and mediastinal contours. Other: No acute osseous abnormality. Procedure Note Jacob Hernandez M.D. - 08/27/2024 EXAM: DX CHEST PORTABLE 1 VIEW COMPARISON: None. FINDINGS: Tubes, Lines and Devices: Single lead AICD with leads terminating over theexpected right ventricular apex. Lungs, Pleura and Airways: No pneumothorax, pleural effusion or focalairspace disease. Normal pulmonary vascular markings. Heart and Mediastinum: Normal heart size and mediastinal contours. Other: No acute osseous abnormality. IMPRESSION: 1. Single lead AICD, as detailed. 2. Clear chest. Xander Byrnes M.D. IMJax DIAGNOSTIC IMAGING PROCE DURES Final Result * ECG 12 Lead (08/27/2024 6:17 AM CDT) Only the most recent of16 resultswithin the time period is included. Ventricular Rate ECG/Min [address] Interval 144 ms MUSE QRSD Interval 106 ms MUSE QT Interval 382 ms MUSE QTC Interval 415 ms MUSE P [place] 47 degrees MUSE R [place] 34 degrees MUSE T Wave [place] 38 degrees MUSE 08/27/2024 6:17 AM CDT 08/27/2024 6:21 AM CDT Impressions MUSE - 08/27/2024 6:21 AM CDT Normal sinus rhythm Normal ECG When compared with ECG of 26-Aug-2024 20:00, QRS duration has decreased Reviewed by SANDRA Orellana Narrative Procedure Note Rene Pereira M.D., Ph.D. - 08/27/2024 IMPRESSION: Normal sinus rhythm Normal ECG When compared with ECG of 26-Aug-2024 20:00, QRS duration has decreased Reviewed by SANDRA Orellana us Xander Byrnes M.D. ECG ORDERABLES Final Result Performing Organization Address [facility] Co de Phone Number MUSE NA * Chest (Left)-Nursing Image Exam (08/26/2024 3:25 PM CDT) 08/26/2024 3:23 PM CDT Narrative IIMS - 08/26/2024 3:42 PM CDT This order has been created and auto-finalized to support the import of images acquired without order. The clinical documentation to support these images can be found on the encounter that produced images. us Provider Not In System IMG NON RAD IMAGING PROCE DURES Final Result Performing Organization Address [facility] Co de Phone Number IIMS NA * ICD IMPLANT - SINGLE CHAMBER (08/26/2024 2:49 PM CDT) Anatomical Region Laterality Modality Digital Radiogra phy 08/26/2024 1:46 PM CDT Narrative 08/26/2024 3:29 PM CDT For the complete report, see the Order-Level Documents. PROCEDURE TYPES 1. ICD IMPLANT - SINGLE CHAMBER PRE-PROCEDURE DIAGNOSIS 1. Arrest Cardiac (HCC) HRS NOTE PROCEDURE: Implantation of single chamber rate responsive Medtronic defibrillator; Medtronic Ventricular Active Fixation Defibrillator Lead. INDICATION: Usa-eg-[id number] cardiac arrest, ejection fraction 23%, NYHA class 2, primary prophylaxis against sudden cardiac . A time-out was performed before the procedure during which the patient stated the patient's name and birthdate as well as the procedure to be performed. After discussion of the risks and goals of the procedure, the patient agreed to proceed. The right and left chests were prepped and draped in the usual sterile fashion. The tissue inferior to the left clavicle was infiltrated with 1% lidocaine. An incision was made in this region and carried to the level of the pectoralis fascia where a pacemaker pocket was fashioned. Using ultrasound, the left axillary vein was identified and punctured. A 9 Danish sheath was placed within the left axillary vein. The ventricular lead was advanced through the sheath and the sheath was peeled away. The right ventricular defibrillator lead was positioned in the region of the right ventricular apex where the helix was deployed. Ventricular pacing thresholds were as recorded below. Maximum output stimulation did not cause extracardiac pacing from the ventricular lead. The helix was found to be fully extended on high magnification fluoroscopy. Mild backbleeding was noted at the entrance site of the lead. Using 2-0 Vicryl, a purse-string suture was placed around the lead and backbleeding ceased. The suture sleeve was attached to the lead and to the underlying tissue with 1-0 Ethibond. Gentle tugging on the lead proved it was securely fixed. The threshold was rechecked and had not changed. The pocket was inspected for bleeding and bleeding areas were cauterized. The pocket was copiously irrigated with saline solution. The lead was connected to the defibrillator and the set screws advanced. Gentle tugging on the lead proved it was securely fixed in the connector block. The device was placed in the pocket. The incision was closed with two running layers of 2-0 Vicryl and a single layer of subcuticular 4-0 Vicryl. No complications were noted during or following the procedure. Estimated blood loss less than 15 ml. Fluoroscopy of the device pocket was performed after the wound was closed. No foreign bodies were noted in the device pocket. IMPRESSION: 1. Successful implantation of single chamber defibrillator. RADIATION DOSE DATA Procedure cumulative skin dose (mGy): 31.80 Procedure cumulative dose area product (Gy-cm2): 5.61 Fluoro Time (Min): 3.70 For the complete report, see the Order-Level Documents. Procedure Note Xander Byrnes M.D. - 08/26/2024 For the complete report, see the Order-Level Documents. PROCEDURE TYPES 1. ICD IMPLANT - SINGLE CHAMBER PRE-PROCEDURE DIAGNOSIS 1. Arrest Cardiac (HCC) HRS NOTE PROCEDURE: Implantation of single chamber rate responsive Medtronicdefibrillator; Medtronic Ventricular Active Fixation Defibrillator Lead. INDICATION: Kef-ub-vkrwihux cardiac arrest, ejection fraction 23%, NYHAclass 2, primary prophylaxis against sudden cardiac . A time-out was performed before the procedure during which the patientstated the patient's name and birthdate as well as the procedure to beperformed. After discussion of the risks and goals of the procedure, thepatient agreed to proceed. The right and left chests were prepped anddraped in the usual sterile fashion. The tissue inferior to the leftclavicle was infiltrated with 1% lidocaine. An incision was made in thisregion and carried to the level of the pectoralis fascia where a pacemakerpocket was fashioned. Using ultrasound, the left axillary vein wasidentified and punctured. A 9 Danish sheath was placed within the leftaxillary vein. The ventricular lead was advanced through the sheath andthe sheath was peeled away. The right ventricular defibrillator lead was positioned in the region ofthe right ventricular apex where the helix was deployed. Ventricularpacing thresholds were as recorded below. Maximum output stimulation didnot cause extracardiac pacing from the ventricular lead. The helix wasfound to be fully extended on high magnification fluoroscopy. Mild backbleeding was noted at the entrance site of the lead. Using 2-0Vicryl, a purse-string suture was placed around the lead and backbleedingceased. The suture sleeve was attached to the lead and to the underlyingtissue with 1-0 Ethibond. Gentle tugging on the lead proved it wassecurely fixed. The threshold was rechecked and had not changed. The pocket was inspected for bleeding and bleeding areas were cauterized.The pocket was copiously irrigated with saline solution. The lead wasconnected to the defibrillator and the set screws advanced. Gentletugging on the lead proved it was securely fixed in the connector block.The device was placed in the pocket. The incision was closed with tworunning layers of 2-0 Vicryl and a single layer of subcuticular 4-0Vicryl. No complications were noted during or following the procedure. Estimatedblood loss less than 15 ml. Fluoroscopy of the device pocket wasperformed after the wound was closed. No foreign bodies were noted in thedevice pocket. IMPRESSION: 1. Successful implantation of single chamber defibrillator. RADIATION DOSE DATA Procedure cumulative skin dose (mGy): 31.80 Procedure cumulative dose area product (Gy-cm2): 5.61 Fluoro Time (Min): 3.70 For the complete report, see the Order-Level Documents. us Taina Owens P.A.-C. CV ELECTROPHYSIOLOGY CT OCS Final Result * Glucose, POCT (08/24/2024 2:01 PM CDT) Only the most recent of19 resultswithin the time period is included. Glucose, POCT, B 90 70 - 140 mg/dL 08/24/2024 2:01 PM CDT [facility] Blood 08/24/2024 2:01 PM CDT 08/24/2024 2:08 PM CDT Generic Rals LAB POCT ORDERABLES-MANUAL Final Result [facility] [address] [place] [address], [facility] MKTO [facility] [place] [address] * CORONARY ANGIOGRAPHY, LEFT HEART CATHETERIZATION (08/24/2024 12:34 PM CDT) Anatomical Region Laterality Modality Digital Radiogra phy 08/24/2024 12:1 7 PM CDT Narrative 08/24/2024 12:47 PM CDT For the complete report, see the Order-Level Documents. PROCEDURE TYPES 1. CORONARY ANGIOGRAPHY 2. HEART CATHETERIZATION - LEFT FINAL DIAGNOSIS 1. Mild coronary artery atherosclerosis 2. Normal LVEDP ( 14 mm Hg ), no gradient across the aortic valve. PRE-PROCEDURE DIAGNOSIS 1. Arrest Cardiac (HCC) CORONARY DIAGNOSTIC SUMMARY Coronary artery dominance is right. Separate ostia for left anterior descending artery and left circumflex artery. Normal LAD coronary. Normal circumflex coronary. The proximal right coronary artery is 20% obstructed by a discrete lesion. Pvebjgve-ij-xivbnv mid LAD intra myocardial bridging. RADIATION DOSE DATA Procedure cumulative skin dose (mGy): 259.00 Procedure cumulative dose area product (Gy-cm2): 15.20 Fluoro Time (Min): 2.00 CONTRAST DOSE DATA iohexoL 350 mg iodine/mL solution (Omnipaque): 30mL For the complete report, see the Order-Level Documents. Procedure Note Alon Suazo M.D. - 08/24/2024 For the complete report, see the Order-Level Documents. PROCEDURE TYPES 1. CORONARY ANGIOGRAPHY 2. HEART CATHETERIZATION - LEFT FINAL DIAGNOSIS 1. Mild coronary artery atherosclerosis 2. Normal LVEDP ( 14 mm Hg ), no gradient across the aortic valve. PRE-PROCEDURE DIAGNOSIS 1. Arrest Cardiac (HCC) CORONARY DIAGNOSTIC SUMMARY Coronary artery dominance is right. Separate ostia for left anteriordescending artery and left circumflex artery. Normal LAD coronary. Normalcircumflex coronary. The proximal right coronary artery is 20% obstructed by a discrete lesion. Ckfduyie-nh-dmslul mid LAD intra myocardial bridging. RADIATION DOSE DATA Procedure cumulative skin dose (mGy): 259.00 Procedure cumulative dose area product (Gy-cm2): 15.20 Fluoro Time (Min): 2.00 CONTRAST DOSE DATA iohexoL 350 mg iodine/mL solution (Omnipaque): 30mL For the complete report, see the Order-Level Documents. Yudith Childs P.A.-C. CV CARDIAC CATH PROCEDUR ES Final Result * Patient Status (08/24/2024 7:46 AM CDT) Only the most recent of10 resultswithin the time period is included. FIO2 0.21 0.21=AIR 08/24/2024 8:02 AM CDT MKTO Spont. breaths/min CANCELED DEFAULT 08/24/2024 8:02 AM CDT MKTO Comment: Required information was not provided. Result canceled by the ancillary. Blood 08/24/2024 7:46 AM CDT 08/24/2024 7:54 AM CDT Erick Baldwin M.D. LAB BLOOD NON ADD-ON Final Re sult Performing Organization Address [facility] Co de Phone Number [facility] [address] [place] [address], [address] [address] * (ABNORMAL) Blood Gas without Coox, Arterial (08/24/2024 7:46 AM CDT) Only the most recent of7 resultswithin the time period is included. Arterial Sample Site L-Radial 08/24/2024 8:02 AM CDT MKTO Comment:Agusto's test normal. P O2 47(L) 83 - 108 mm Hg 08/24/2024 8:02 AM CDT MKTO P CO2 41 35 - 48 mm Hg 08/24/2024 8:02 AM CDT MKTO pH 7.41 7.35 - 7.45 pH 08/24/2024 8:02 AM CDT MKTO Base Excess 1 -2 - 3 mmol/L 08/24/2024 8:02 AM CDT MKTO HCO3 26 22 - 26 mmol/L 08/24/2024 8:02 AM CDT MKTO Blood (Blood, Arterial) 08/24/2024 7:46 AM CDT 08/24/2024 7:54 AM CDT Erick Baldwin M.D. LAB BLOOD NON ADD-ON Final Re sult Performing Organization Address City/[facility]/ZIP Co de Phone Number [facility] [address] [place] [address], [address] [address] * Electrolyte (Chem 4) Panel (08/24/2024 7:45 AM CDT) Only the most recent of8 resultswithin the time period is included. Potassium, P 4.3 3.6 - 5.2 mmol/L 08/24/2024 8:17 AM CDT MKTO Sodium, P 138 135 - 145 mmol/L 08/24/2024 8:17 AM CDT MKTO Chloride, P 101 98 - 107 mmol/L 08/24/2024 8:17 AM CDT MKTO Bicarbonate, P 22 22 - 29 mmol/L 08/24/2024 8:17 AM CDT MKTO Anion Gap, P 15 7 - 15 08/24/2024 8:17 AM CDT MKTO Blood (Blood, Venous) 08/24/2024 7:45 AM CDT 08/24/2024 7:55 AM CDT us Erick Baldwin M.D. LAB BLOOD ADD-ON Final Result Performing Organization Address City/[facility] Co de Phone Number [facility] [place] [address], [facility] MKTO [facility] [place] [address] * Heparin Anti-Xa Assay (08/24/2024 7:45 AM CDT) Only the most recent of4 resultswithin the time period is included. Heparin Anti-Xa, P 0.12 IU/mL 2024 8:08 AM CDT MKTO Comment: UFH therapeutic range: 0.30-0.70 IU/mL LMWH therapeutic range: 0.50-1.00 IU/mL 0.50-1.00 IU/mL for twice daily dosing 1.00-2.00 IU/mL for once daily dosing (sample obtained 4-6 hours following subcutaneous injection) LMWH prophylactic range:0.10-0.30 IU/mL ----ADDITIONAL INFORMATION---- Heparin Anti-Xa is used to measure heparin concentrations in patients receiving low molecular weight heparin (LMWH) or unfractionated heparin (UFH). Blood (Blood, Venous) 08/24/2024 7:45 AM CDT 08/24/2024 7:55 AM CDT us Luis Morales M.D. LAB BLOOD NON ADD-ON Final Res ult Performing Organization Address City/[facility]/ZIP Co de Phone Number [facility] [address] [place] [address], [place] [address] * Magnesium (08/23/2024 1:54 PM CDT) Only the most recent of4 resultswithin the time period is included. Magnesium, P 2.1 1.7 - 2.3 mg/dL 08/23/2024 2:26 PM CDT [facility] Blood (Blood, Venous) 08/23/2024 1:54 PM CDT 08/23/2024 1:59 PM CDT Fabi Hernandez M.D. LAB BLOOD ADD-ON Fin al Result Performing Organization Address City/[facility]/ZIP Co de Phone Number [facility] [address] [place] [address], [place] [address] * (ABNORMAL) Neuron-Specific Enolase (NSE) (08/23/2024 7:20 AM CDT) Neuron Specific Enolase, S 16(H) <=15 ng/mL 08/25/2024 9:33 AM CDT [facility] Comment: ----ADDITIONAL INFORMATION---- This test was developed and its performance characteristics determined by [facility] in a manner consistent with CLIA requirements. This test has not been cleared or approved by the U.S. Food and Drug Administration. In some immunoassays, the presence of unusually high concentrations of analyte may result in a high-dose hook effect. This may result in a lower or even normal measured analyte concentration. If the reported result is inconsistent with the clinical presentation, the laboratory should be alerted for troubleshooting. For diagnostic purposes, these immunoassay results should always be assessed in conjunction with the patients medical history, clinical examination and other findings. The testing method is a homogeneous time-resolved immunofluorescent assay manufactured by [employer] and performed on the [employer] Kryptor Compact Plus. Values obtained with different assay methods or kits may be different and cannot be used interchangeably. If ordered as a tumor marker, this test result cannot be interpreted as absolute evidence for the presence or absence of malignant disease. Blood (Blood, Venous) 08/23/2024 7:20 AM CDT 08/25/2024 7:02 AM CDT Erick Baldwin M.D. LAB BLOOD NON ADD-ON Final Re sult Performing Organization Address City/[facility]/ZIP Co de Phone Number [facility] [address] [place] [address] [facility] [address] [place] [address] * (ABNORMAL) Phosphorus Inorganic (08/23/2024 4:11 AM CDT) Only the most recent of2 resultswithin the time period is included. Pathologist [facility] Phosphorus (Inorganic), P 2.3(L) 2.5 - 4.5 mg/dL 08/23/2024 9:44 AM CDT [facility] Blood (Blood, Venous) 08/23/2024 4:11 AM CDT 08/23/2024 9:31 AM CDT Fabi Hernandez M.D. LAB BLOOD ADD-ON Fin al Result Performing Organization Address [facility] Co de Phone Number [facility] [address] [place] [address], [facility] [place] [address] * Quantitative M-protein Study (08/22/2024 4:04 PM CDT) Immunoglobulin A (IgA), S 258 61 - 356 mg/dL 08/26/2024 10:29 AM CDT [facility] Immunoglobulin M (IgM), S 43 37 - 286 mg/dL 08/26/2024 10:29 AM CDT [facility] Immunoglobulin G (IgG), S 890 767 - 1590 mg/dL 08/26/2024 10:29 AM CDT [facility] Therapeutic Antibody Administered? Unspecified 08/25/2024 6:48 AM CDT [facility] Flag, M-protein Isotype Negative Negative 08/26/2024 3:23 PM CDT [facility] QMPTS Interpretation No monoclonal protein detected. 08/26/2024 3:23 PM CDT [facility] Comment: ----ADDITIONAL INFORMATION---- The submitted sample was assayed by five separate immunopurifications for IgG, IgA, IgM, kappa and lambda. The result reflects the findings of either no monoclonal protein detected or those monoclonal immunoglobulins that were detected. This test was developed and its performance characteristics determined by [facility] in a manner consistent with CLIA requirements. This test has not been cleared or approved by the U.S. Food and Drug Administration. Blood (Blood, Venous) 08/22/2024 4:04 PM CDT 08/25/2024 6:24 AM CDT Narrative [facility] - 08/26/2024 3:23 PM CDT Specimen Information: Specimen ID: [id number] Specimen Type: Blood Specimen Collection Start Date: 08/22/2024 4:04 PM Specimen Received Date: 08/25/2024 6:24 AM Specimen ID: [id number] Specimen Type: Blood Specimen Collection Start Date: 08/22/2024 4:04 PM Specimen Received Date: 08/25/2024 6:48 AM Taina Owens P.A.-C. LAB BLOOD ADD-ON Final Result [place] [id number] [place] [address] [facility] [address] [place] [address] [place] [address] [place] [address] [place] [address] * Alpha-Galactosidase (08/22/2024 4:04 PM CDT) Alpha-Galactosidas e,S 0.346 0.074 - 0.457 U/L 08/26/2024 1:55 PM CDT DTL Reviewed by Latricia Garcia, PhD 08/26/2024 1:55 PM CDT [facility] Interpretation *NEGATIVE* In this sample, the activity of alpha-galacto sidase is normal. These results indicate that this individual is NOT affected with Fabry disease. 08/26/2024 1:55 PM CDT [facility] Comment: ----ADDITIONAL INFORMATION---- Fluorometric Enzyme Assay This test was developed and its performance characteristics determined by [facility] in a manner consistent with CLIA requirements. This test has not been cleared or approved by the U.S. Food and Drug Administration. Blood (Blood, Venous) 08/22/2024 4:04 PM CDT 08/23/2024 7:59 AM CDT Taina Owens P.A.-C. LAB GENETIC TESTING Fin al Result [facility] [address] [place] [address], [facility] [address] [facility] [address] [place] [address] * Iron and Total Iron-Binding Capacity (08/22/2024 4:04 PM CDT) Iron 59 50 - 150 mcg/dL 08/22/2024 5:07 PM CDT [facility] Total Iron Binding Capacity 257 250 - 400 mcg/dL 08/22/2024 5:07 PM CDT [facility] Percent Saturation 23 14 - 50 % 08/22/2024 5:07 PM CDT [facility] Blood (Blood, Venous) 08/22/2024 4:04 PM CDT 08/22/2024 4:08 PM CDT Taina Owens P.A.-C. LAB BLOOD ADD-ON Final Result [facility] [address] [place] [address], [facility] [place] [address] [place] [address] * (ABNORMAL) Immunoglobulin Free Light Chains (08/22/2024 4:04 PM CDT) [place] Free Light Chain, S 2.43(H) 0.3300 - 1.94 mg/dL 08/25/2024 5:10 PM CDT [facility] Lambda Free Light Chain, S 1.73 0.5700 - 2.63 mg/dL 08/25/2024 5:11 PM CDT [facility] [place]/Lambda FLC Ratio 1.40 0.2600 - 1.65 08/25/2024 5:11 PM CDT [facility] Blood (Blood, Venous) 08/22/2024 4:04 PM CDT 08/25/2024 6:24 AM CDT Taina Owens P.A.-C. LAB BLOOD ADD-ON Final Result [facility] [address] [place] [address] [facility] [address] [place] [address] * Ferritin (08/22/2024 4:04 PM CDT) [facility] Ferritin, S 397 31 - 409 mcg/L 08/22/2024 5:07 PM CDT [facility] Comment: Biotin has been identified by the fitter type bar and segment as a potential interfering substance. Higher concentrations of biotin may be found in multivitamins, hair/nail supplements, and workout supplements. If the result does not match clinical observations, repeat testing after patient refrains from the use of supplements for at least 12 hours. Blood (Blood, Venous) 08/22/2024 4:04 PM CDT 08/22/2024 4:08 PM CDT Taina Owens P.A.-C. LAB BLOOD ADD-ON Final Result [facility] [address] [place] [address], [place] [facility] [place] [address] [place] [address] * EEG (08/22/2024 1:30 PM CDT) Narrative [facility] - 08/22/2024 3:20 PM CDT Clinical interpretation: During wakefulness and drowsiness the EEG shows frequent generalized background slowing that indicates mild generalized cerebral dysfunction of nonspecific etiology and abundant generalized excessive fast activity that may be due to medications. Sleep was not recorded. No potentially epileptogenic activity is present. The EEG shows several recorded clinical events during wakefulness and characterized by bilateral upper extremity and lower extremity tonic stiffening and bilateral upper extremity shaking with no EEG correlate and thus no evidence of an epileptic cause. Classification: Special study - Short-term video EEG recording. Dysrhythmia grade 1 generalized. Sleep - unsuccessful. Several recorded clinical events during wakefulness and characterized by bilateral upper extremity and lower extremity tonic stiffening and bilateral upper extremity shaking with no EEG correlate. EKG channel. Report: For portions of the recording there were abundant movement and muscle artifacts. The background contained rare, low to moderate amplitude, symmetric posterior regions 8 Hz alpha activity. There was abundant, low amplitude, symmetric 17-20 Hz generalized beta activity. There was frequent, moderate to high amplitude, symmetric 5-7 Hz generalized theta activity that was more abundant during drowsiness. Hyperventilation was not performed due to patient medical condition. Photic stimulation was not performed. The patient became drowsy, but did not fall asleep. During wakefulness there were several recorded clinical events during wakefulness and characterized by bilateral upper extremity and lower extremity tonic stiffening and bilateral upper extremity shaking with no EEG correlate. An EKG channel showed regular rhythm with a rate of 66/min. us Fabi Hernandez M.D. NEUROLOGY ORDERABLES Final Result Performing Organization Address [facility] de Phone Number [facility] NA * Lactate, B (08/22/2024 12:34 PM CDT) Only the most recent of3 resultswithin the time period is included. Lactate, B 1.0 0.5 - 2.2 mmol/L 08/22/2024 12:47 PM CDT [facility] Blood (Blood, Venous) 08/22/2024 12:34 PM CDT 08/22/2024 12:38 PM CDT us Fabi Hernandez M.D. LAB BLOOD NON ADD-ON Final Result Performing Organization Address [facility] Co de Phone Number [facility] [address] [place] [address], [address] [address] * (ABNORMAL) Blood Gas with Coox, Arterial (08/22/2024 12:34 PM CDT) Only the most recent of3 resultswithin the time period is included. P O2 93 83 - 108 mm Hg 08/22/2024 12:40 PM CDT [facility] P CO2 39 35 - 48 mm Hg 08/22/2024 12:40 PM CDT [facility] pH 7.41 7.35 - 7.45 pH 08/22/2024 12:40 PM CDT [facility] Base Excess 0 -2 - 3 mmol/L 08/22/2024 12:40 PM CDT [facility] HCO3 24 22 - 26 mmol/L 08/22/2024 12:40 PM CDT [facility] Hemoglobin, Venous 16.3 13.2 - 16.6 g/dL 08/22/2024 12:40 PM CDT [facility] O2Hb 95.1 94.0 - 98.0 % 08/22/2024 12:40 PM CDT [facility] COHb 1.2 <3.0 % 08/22/2024 12:40 PM CDT [facility] MetHb 1.2 <1.5 % 08/22/2024 12:40 PM CDT [facility] CtO2 21.8(H) 18.0 - 21.0 vol % 08/22/2024 12:40 PM CDT [facility] Arterial Sample Site L-Radial 08/22/2024 12:40 PM CDT [facility] Comment:Agusto's test normal. Blood (Blood, Arterial) 08/22/2024 12:34 PM CDT 08/22/2024 12:38 PM CDT us Fabi Hernandez M.D. LAB BLOOD NON ADD-ON Final Result Performing Organization Address City/[facility]/ZIP Co de Phone Number [facility] [address] [place] [address], [facility] [place] [address] * (ABNORMAL) Hepatic Function Panel (08/22/2024 2:50 AM CDT) Only the most recent of2 resultswithin the time period is included. Bilirubin, Total, P 1.6(H) 0.0 - 1.2 mg/dL 08/22/2024 3:27 AM CDT [facility] Bilirubin, Direct, P 0.6(H) 0.0 - 0.3 mg/dL 08/22/2024 3:27 AM CDT [facility] Aspartate Aminotransferase (AST), P 130(H) 8 - 48 U/L 08/22/2024 3:27 AM CDT [facility] Alanine Aminotransferase (ALT), P 89(H) 7 - 55 U/L 08/22/2024 3:27 AM CDT [facility] Alkaline Phosphatase, P 51 40 - 129 U/L 08/22/2024 3:27 AM CDT [facility] Albumin, P 3.7 3.5 - 5.0 g/dL 08/22/2024 3:27 AM CDT [facility] Protein, Total, P 6.2(L) 6.3 - 7.9 g/dL 08/22/2024 3:27 AM CDT [facility] Blood (Blood, Venous) 08/22/2024 2:50 AM CDT 08/22/2024 3:02 AM CDT us Fabi Hernandez M.D. LAB BLOOD ADD-ON Fin al Result [facility] [address] [place] [address], [facility] [place] [place] [address] * ECG Monitor Record (08/21/2024 2:26 PM CDT) Narrative 08/21/2024 2:26 PM CDT Ordered by an unspecified provider. us Default Authenticator Junior ECG ORDERABLES Final Result * APTT (Activated Partial Thromboplastin Time) (08/21/2024 2:18 PM CDT) Pathologist [facility] Activated Partial Thrombopl Time, P 29 25 - 37 sec 08/21/2024 2:35 PM CDT [facility] Blood (Blood, Venous) 08/21/2024 2:18 PM CDT 08/21/2024 2:22 PM CDT us Fabi Hernandez M.D. LAB BLOOD ADD-ON Fin al Result [facility] [address] [place] [address], [address] [address] * MRSA PCR, Nasal (08/21/2024 1:59 PM CDT) [facility] MRSA Screen, Nasal by PCR Negative Negative 08/21/2024 3:19 PM CDT [facility] Swab (Nares) 08/21/2024 1:59 PM CDT 08/21/2024 2:02 PM CDT us Fabi Hernandez M.D. LAB MICROBIOLOGY - G ENERAL ORDERABLES Final Result Performing Organization Address City/[facility]/ZIP Co de Phone Number [facility] [address] [place] [address], [address] [address] * (ABNORMAL) Pneumonia Panel, PCR (08/21/2024 1:56 PM CDT) Pathologist [facility] Specimen Source Sputum, Tracheal Secretions 08/21/2024 4:29 PM CDT [facility] Acinetobacter calcoaceticus-valentina annii complex Undetected Undetected copies/mL 08/21/2024 4:29 PM CDT [facility] Enterobacter cloacae complex Undetected Undetected copies/mL 08/21/2024 4:29 PM CDT [facility] Escherichia coli Undetected Undetected copies/mL 08/21/2024 4:29 PM CDT [facility] Haemophilus influenzae Undetected Undetected copies/mL 08/21/2024 4:29 PM CDT [facility] Klebsiella aerogenes Undetected Undetected copies/mL 08/21/2024 4:29 PM CDT [facility] Klebsiella oxytoca Undetected Undetected copies/mL 08/21/2024 4:29 PM CDT [facility] Klebsiella pneumoniae complex Undetected Undetected copies/mL 08/21/2024 4:29 PM CDT [facility] Moraxella catarrhalis Undetected Undetected copies/mL 08/21/2024 4:29 PM CDT [facility] Proteus species Undetected Undetected copies/mL 08/21/2024 4:29 PM CDT [facility] Pseudomonas aeruginosa Undetected Undetected copies/mL 08/21/2024 4:29 PM CDT [facility] Serratia marcescens Undetected Undetected copies/mL 08/21/2024 4:29 PM CDT [facility] Staphylococcus aureus complex Detected 10(6)(A) Undetected copies/mL 08/21/2024 4:29 PM CDT [facility] Comment: Methicillin-susceptible Staphylococcus aureus complex. A beta-lactam anti-staphylococcal antibiotic such as cefazolin recommended for empiric therapy, unless clinically contraindicated. Semi-quantitative organism quantities reported by this assay, which can include: 10(4), 10(5), 10(6), or >=10(7) copies/mL, are not equivalent to CFU/mL and do not consistently correlate with quantities of bacteria compared to CFU/mL. Streptococcus agalactiae Undetected Undetected copies/mL 08/21/2024 4:29 PM CDT [facility] Streptococcus pneumoniae Undetected Undetected copies/mL 08/21/2024 4:29 PM CDT [facility] Streptococcus pyogenes Undetected Undetected copies/mL 08/21/2024 4:29 PM CDT [facility] mecA Resistance Gene Undetected Undetected 08/21/2024 4:29 PM CDT [facility] Chlamydia pneumoniae Undetected Undetected 08/21/2024 4:29 PM CDT [facility] Legionella pneumophila Undetected Undetected 08/21/2024 4:29 PM CDT [facility] Mycoplasma pneumoniae Undetected Undetected 08/21/2024 4:29 PM CDT [facility] Adenovirus Undetected Undetected 08/21/2024 4:29 PM CDT [facility] Coronavirus Undetected Undetected 08/21/2024 4:29 PM CDT [facility] Human Metapneumovirus Undetected Undetected 08/21/2024 4:29 PM CDT [facility] Human Rhinovirus/Enterov irus Undetected Undetected 08/21/2024 4:29 PM CDT [facility] Influenza A Undetected Undetected 08/21/2024 4:29 PM CDT [facility] Influenza B Undetected Undetected 08/21/2024 4:29 PM CDT [facility] Parainfluenza Undetected Undetected 08/21/2024 4:29 PM CDT [facility] Respiratory Syncytial Virus Undetected Undetected 08/21/2024 4:29 PM CDT [facility] Comment: ----ADDITIONAL INFORMATION---- This assay is performed using the FDA-cleared [employer]ixArray Pneumonia Panel (PN) ([employer] Any initial empiric treatment guidance provided in this report by Infectious Diseases was based solely on the results shown. Patient management should be individualized, based on clinical interpretation of the result in this patient, alongside other considerations, including, but not limited to, renal and liver function, allergies, drug interactions, and other infections. This assay is not predicted to detect SARS-coronavirus (CoV), MERS-CoV or SARS-CoV-2. Sputum (Tracheal Secretions) 08/21/2024 1:56 PM CDT 08/21/2024 2:02 PM CDT us Erick Baldwin M.D. LAB MICROBIOLOGY - GENERAL OR DERABLES Final Result [facility] [address] [place] [address], [facility] [address] [address] * (ABNORMAL) Bacterial Culture, Aerobic + Susceptibility, Respiratory (08/21/2024 1:56 PM CDT) Bacterial Culture, Aerobic, Resp With upper respiratory/oral microbiota(A) 08/23/2024 8:50 AM CDT [facility] Bacterial Culture, Aerobic, Resp STAPHYLOCOCCUS AUREUS Internal controls Passed (A) 08/23/2024 8:50 AM CDT [facility] Comment:Oxacillin sensitive Sputum (Tracheal Secretions) 08/21/2024 1:56 PM CDT 08/21/2024 2:02 PM CDT Comment:Specimen Source Site : Sputum Narrative Organism Antibiotic Method Susceptibility Staphylococcus aureus Oxacillin SUSCEPTIBI LITY, GABI (MCG/ML) 0.5 mcg/mL: Susceptible Comment: Use oxacillin interpretation to predict results for anti-staphylococcal beta-lactam antibiotics (except ceftaroline). Staphylococcus aureus Gentamicin SUSCEPTIBI LITY, GABI (MCG/ML) <=0.5 mcg/mL: Susceptible Staphylococcus aureus Levofloxacin SUSCEPTIBI LITY, GABI (MCG/ML) 0.25 mcg/mL: Susceptible Staphylococcus aureus Clindamycin SUSCEPTIBI LITY, GABI (MCG/ML) 0.25 mcg/mL: Susceptible Staphylococcus aureus Linezolid SUSCEPTIBI LITY, GABI (MCG/ML) 2 mcg/mL: Susceptible Staphylococcus aureus Vancomycin SUSCEPTIBI LITY, GABI (MCG/ML) 1 mcg/mL: Susceptible Staphylococcus aureus Doxycycline SUSCEPTIBI LITY, GABI (MCG/ML) <=0.5 mcg/mL: Susceptible Staphylococcus aureus Rifampin SUSCEPTIBI LITY, GABI (MCG/ML) <=0.5 mcg/mL: Susceptible Comment:Rifampin demetrio uld not be used as monotherapy Staphylococcus aureus Trimethoprim + Sulfamethoxazole SUSCEPTIBILITY, GABI (MCG/ML) <=10 mcg/mL: Susceptible Erick Baldwin M.D. LAB MICROBIOLOGY - GENERAL OR DERABLES Final Result Performing Organization Address City/[facility]/[place] [address], [place] [address] * Gram Stain (08/21/2024 1:56 PM CDT) Gram Stain Mixed microbiota White blood cells, Many. 08/21/2024 2:33 PM CDT [facility] Sputum (Tracheal Secretions) 08/21/2024 1:56 PM CDT 08/21/2024 2:02 PM CDT Comment:Specimen Source Site : Sputum Erick Baldwin M.D. LAB MICROBIOLOGY - GENERAL OR DERABLES Final Result Performing Organization Address [facility]/[place] [address], [place] [address] * (ABNORMAL) Troponin T, 5th Generation (08/21/2024 12:51 PM CDT) Only the most recent of4 resultswithin the time period is included. Troponin T, 5th gen 319(H) <=15 ng/L 08/21/2024 1:25 PM CDT [facility] Comment:Consider acute myoca rdial injury Blood (Blood, Venous) 08/21/2024 12:51 PM CDT 08/21/2024 12:59 PM CDT us Fabi Hernandez M.D. LAB BLOOD ADD-ON Fin al Result [facility] [address] [place] [address], [place] [facility] [place] [address] [place] [address] * (TTE) 2D ECHO DOPPLER COLOR AND CONTRAST (08/21/2024 9:26 AM CDT) Pathologist [facility] Ejection Fraction 23 MC CV EIMS LV Mass Index 88 MC CV EIMS LV End-Diastolic Diameter 51 MC CV EIMS LV End-Systolic Diameter 44 MC CV EIMS LV End-Diastolic Volume 115 MC CV EIMS LV End-Systolic Volume 88 MC CV EIMS MV E Velocity 0.4 MC CV EIMS MV A Velocity 0.5 MC CV EIMS MV E/A 0.8 MC CV EIMS MV e' Velocity Medial 0.06 MC CV EIMS MV e' Velocity Lateral 0.06 MC CV EIMS MV E/e' Medial 6.7 MC CV EIMS MV E/e' Lateral 6.7 MC CV EIMS Left ventricular stroke volume index 34 MC CV EIMS Cardiac Output 5.28 MC CV EIMS Cardiac Index 2.47 MC CV EIMS LV Interventricular Septal Wall Thickness 9 MC CV EIMS LV Posterior Wall Thickness 11 MC CV EIMS LV Relative Wall Thickness 43 MC CV EIMS Tricuspid Annular S 0.08 MC CV EIMS Estimated RA Pressure (Echo RAP) 15 MC CV EIMS AV mean gradient 2 MC [facility] Aortic valve area 4.47 MC CV EIMS Aortic Valve Dimensionless Index 0.84 MC CV EIMS LA Volume Index 22 MC CV EIMS Aortic Valve Systolic Peak Velocity 0.9 MC CV EIMS Anatomical Region Laterality Modality Echocardiography 08/21/2024 8:30 AM CDT Impressions 08/21/2024 9:58 AM CDT Echo performed in the ICU. LEFT VENTRICLE:Normal left ventricular chamber size. Calculated 2-D biplane volumetric left ventricular ejection fraction of 23% with the use of ultrasound enhancing agent. Moderate-severe generalized left ventricular hypokinesis. Normal left ventricular wall thickness. Elevated left ventricular filling pressure. RIGHT VENTRICLE:Mildly enlarged right ventricular chamber size by visual estimate. Moderately reduced right ventricular systolic function. Unable to detect peak tricuspid regurgitation velocity for pulmonary artery systolic pressure calculation. ATRIA:Normal left atrial size. Left atrial volume index 22 ml/m2. Normal right atrial size. CARDIAC VALVES:Suspected trileaflet aortic valve. Mildly thickened aortic valve. No aortic valve regurgitation. Mitral valve changes consistent with age. Trivial mitral valve regurgitation. Pulmonary valve not well visualized. Normal pulmonary valve systolic velocities. Trivial pulmonary valve regurgitation. Trivial tricuspid valve regurgitation. OTHER ECHO FINDINGS:Enlarged inferior vena cava size with reduced inspiratory collapse (<50%). Ascending aorta not well visualized. Abdominal aorta incompletely visualized. Normal abdominal aorta Doppler flow pattern. No atrial level shunt by color flow imaging. No intracardiac mass or thrombus, but the left atrial appendage cannot be visualized adequately with transthoracic echo to exclude thrombus in this location. No pericardial effusion. Attempts were made to optimize the echocardiographic images and two or more left ventricular segments were not visualized adequately to evaluate cardiac structure. The patient's current allergies and medications have been screened. Intravenous Definity ultrasound enhancement agent(s) administered to enhance endocardial border definition. Imaging enhancement agent administered per Echocardiography Contrast Administration Protocol Reference Document [id number] Rev 06/30/2021. Patient met an inclusion criterion and did not have contraindications in screening sections. For the complete report, see the Order-Level Documents. Narrative 08/21/2024 9:58 AM CDT For the complete report, see the Order-Level Documents. Hemodynamics Heart Rate: 72 BPM Blood Pressure: 121 / 82 mmHg ECG: Sinus rhythm Final Impressions 1. Calculated 2-D biplane volumetric left ventricular [...] regionality. Right ventricular function is also depressed. Procedure Note Chris Clark M.D. - 08/21/2024 For the complete report, see the Order-Level Documents. Hemodynamics Heart Rate: 72 BPM Blood Pressure: 121 / 82 mmHg ECG: Sinus rhythm Final Impressions 1. Calculated 2-D biplane volumetric left ventricular ejection fraction of23% with the use of ultrasound enhancing agent. [...] performed status post cardiac arrest. Left ventricular dysfunctionprimarily global with some regionality. Right ventricular function isalso depressed. Findings Echo performed in the ICU. LEFT VENTRICLE:Normal left ventricular chamber size. Calculated 2-Dbiplane volumetric left ventricular ejection fraction of 23% with the useof ultrasound enhancing agent. Moderate-severe generalized leftventricular hypokinesis. Normal left ventricular wall thickness. Elevatedleft ventricular filling pressure. RIGHT VENTRICLE:Mildly enlarged right ventricular chamber size by visualestimate. Moderately reduced right ventricular systolic function. Unableto detect peak tricuspid regurgitation velocity for pulmonary arterysystolic pressure calculation. ATRIA:Normal left atrial size. Left atrial volume index 22 ml/m2. Normalright atrial size. CARDIAC VALVES:Suspected trileaflet aortic valve. Mildly thickened aorticvalve. No aortic valve regurgitation. Mitral valve changes consistent withage. Trivial mitral valve regurgitation. Pulmonary valve not wellvisualized. Normal pulmonary valve systolic velocities. Trivial pulmonaryvalve regurgitation. Trivial tricuspid valve regurgitation. OTHER ECHO FINDINGS:Enlarged inferior vena cava size with reducedinspiratory collapse (<50%). Ascending aorta not well visualized.Abdominal aorta incompletely visualized. Normal abdominal aorta Dopplerflow pattern. No atrial level shunt by color flow imaging. No intracardiacmass or thrombus, but the left atrial appendage cannot be visualizedadequately with transthoracic echo to exclude thrombus in this location.No pericardial effusion. Attempts were made to optimize theechocardiographic images and two or more left ventricular segments werenot visualized adequately to evaluate cardiac structure. The patient'scurrent allergies and medications have been screened. Intravenous Definityultrasound enhancement agent(s) administered to enhance endocardial borderdefinition. Imaging enhancement agent administered per EchocardiographyContrast Administration Protocol Reference Document [id number] Rev06/30/2021. Patient met an inclusion criterion and did not havecontraindications in screening sections. For the complete report, see the Order-Level Documents. us Erick Baldwin M.D. CV ECHO PROCEDURES Edited Res ult - Final * (ABNORMAL) Lipase (08/21/2024 9:14 AM CDT) Only the most recent of2 resultswithin the time period is included. Lipase, P 61(H) 13 - 60 U/L 08/21/2024 9: 42 AM CDT MKTO Blood 08/21/2024 9:14 AM CDT 08/21/2024 9:21 AM CDT us Erick Baldwin M.D. LAB BLOOD ADD-ON Final Result [facility] [place] [address], [facility] MKTO [facility] [place] [address] [place] [address] * (ABNORMAL) CK (Creatine Kinase) (08/21/2024 9:14 AM CDT) Only the most recent of2 resultswithin the time period is included. Creatine Kinase, P 1361(H) 39 - 308 U/L 08/21/2024 9:42 AM CDT MKTO Blood 08/21/2024 9:14 AM CDT 08/21/2024 9:21 AM CDT us Erick Baldwin M.D. LAB BLOOD ADD-ON Final Result Performing Organization Address City/[facility]/ZIP Co de Phone Number [facility] [address] [place] [address], [place] [address] * Ammonia (08/21/2024 9:14 AM CDT) Only the most recent of2 resultswithin the time period is included. Ammonia, P 32 <=60 mcmol/L 08/21/2024 9:41 AM CDT MKTO Blood 08/21/2024 9:14 AM CDT 08/21/2024 9:21 AM CDT us Erick Baldwin M.D. LAB BLOOD NON ADD-ON Final Re sult Performing Organization Address [facility] Co de Phone Number [facility] [address] [place] [address], [place] [address] * (ABNORMAL) Urinalysis with Microscopic if Indicated: Urine, Midstream (08/21/2024 8:35 AM CDT) Source Urine, Urine, Midstream 08/21/2024 8:49 AM CDT MKTO Clarity Clear Clear 08/21/2024 8:49 AM CDT MKTO Color Yellow 08/21/2024 8:49 AM CDT MKTO Comment: ----REFERENCE VALUE---- Colorless Yellow Octavia Blood Large(A) Negative 08/21/2024 8:49 AM CDT MKTO Nitrite Negative Negative 08/21/2024 8:49 AM CDT MKTO Leukocyte Esterase Negative Negative 08/21/2024 8:49 AM CDT MKTO Protein 30(A) mg/dL 08/21/2024 8:49 AM CDT MKTO Comment: ----REFERENCE VALUE---- Negative Trace Glucose Negative Negative mg/dL 08/21/2024 8:49 AM CDT MKTO Ketone Negative Negative mg/dL 08/21/2024 8:49 AM CDT MKTO Bilirubin Negative Negative 08/21/2024 8:49 AM CDT MKTO pH 5.5 5.0 - 8.0 08/21/2024 8:49 AM CDT MKTO Specific Unity >1.035(A) 1.001 - 1.035 08/21/2024 8:49 AM CDT MKTO Urobilinogen 0.2 0.2 - 1.0 mg/dL 08/21/2024 8:49 AM CDT MKTO Urine (Urine, Midstream) 08/21/2024 8:35 AM CDT 08/21/2024 8:40 AM CDT Erick Baldwin M.D. LAB URINE ORDERABLES Final Re sult Performing Organization Address [facility] Co de Phone Number [facility] [address] [place] [address], [place] [address] * (ABNORMAL) Microscopic Automated (08/21/2024 8:35 AM CDT) White Blood Cells Occ-3 /hpf 08/21/2024 9:18 AM CDT MKTO Comment: ----REFERENCE VALUE---- Males: 0-3 Females: 0-10 Unknown: 0-10 Red Blood Cells Occ-2 0 - 2 /hpf 08/21/2024 9:18 AM CDT MKTO Crystals Amorphous None Seen /lpf 08/21/2024 9:18 AM CDT MKTO Bacteria Present(A) None Seen 08/21/2024 9:18 AM CDT MKTO Urine 08/21/2024 8:35 AM CDT 08/21/2024 8:40 AM CDT us Erick Baldwin M.D. LAB URINE ORDERABLES Final Re sult Performing Organization Address [facility] Co de Phone Number [facility] [address] [place] [address], [facility] [address] [address] * (ABNORMAL) Drug Screen Urine (08/21/2024 8:35 AM CDT) [facility] Amphetamines, U Negative Negative 08/21/2024 8:56 AM CDT MKTO Comment: ----ADDITIONAL INFORMATION---- Hearing Therapist's Cutoff: 500 ng/mL Barbiturates, U Negative Negative 08/21/2024 8:56 AM CDT TO Comment: ----ADDITIONAL INFORMATION---- Hearing Therapist's Cutoff: 200 ng/mL Benzodiazepin es, U Negative Negative 08/21/2024 8:56 AM CDT TO Comment: ----ADDITIONAL INFORMATION---- Hearing Therapist's Cutoff: 150 ng/mL Buprenorphine , U Negative Negative 08/21/2024 8:56 AM CDT TO Comment: ----ADDITIONAL INFORMATION---- Hearing Therapist's Cutoff: 10 ng/mL Cocaine, U Negative Negative 08/21/2024 8:56 AM CDT TO Comment: ----ADDITIONAL INFORMATION---- Hearing Therapist's Cutoff: 150 ng/mL Methadone, U Negative Negative 08/21/2024 8:56 AM CDT TO Comment: ----ADDITIONAL INFORMATION---- Hearing Therapist's Cutoff: 200 ng/mL Methamphetami jaquelin, U Negative Negative 08/21/2024 8:56 AM CDT TO Comment: ----ADDITIONAL INFORMATION---- Hearing Therapist's Cutoff: 500 ng/mL Opiates, U Negative Negative 08/21/2024 8:56 AM CDT TO Comment: ----ADDITIONAL INFORMATION---- Hearing Therapist's Cutoff: 100 ng/mL Oxycodone, U Negative Negative 08/21/2024 8:56 AM CDT TO Comment: ----ADDITIONAL INFORMATION---- Hearing Therapist's Cutoff: 100 ng/mL Phencyclidine , U Negative Negative 08/21/2024 8:56 AM CDT TO Comment: ----ADDITIONAL INFORMATION---- Hearing Therapist's Cutoff: 25 ng/mL Tetrahydrocan nabinol, U Unconfirmed Positive(A) Negative 08/21/2024 8:56 AM CDT TO Comment: ----ADDITIONAL INFORMATION---- Hearing Therapist's Cutoff: 50 ng/mL Tricyclic Antidepressan ts, U Negative Negative 08/21/2024 8:56 AM CDT MKTO Comment: ----ADDITIONAL INFORMATION---- Hearing Therapist's Cutoff: 300 ng/mL THE ABOVE DRUG SCREEN PANEL IS FOR MEDICAL PURPOSES ONLY Urine (Urine, Midstream) 08/21/2024 8:35 AM CDT 08/21/2024 8:40 AM CDT us Erick Baldwin M.D. LAB URINE ORDERABLES Final Re sult [facility] [address] [place] [address], [facility] [place] [address] [place] [address] * HIV-1/-2 Ag and Ab Screen, Plasma (08/21/2024 8:09 AM CDT) HIV Ag/Ab Screen, P Negative Negative 08/21/2024 12:58 PM CDT [facility] Comment: Negative result does not rule out HIV infection. If exposure to HIV infection occurred <14 days ago, contact the laboratory to request addition of HIV-1/HIV-2 RNA detection, Plasma (HIP12). HIV-1 p24 Ag Screen, P Negative Negative 08/21/2024 12:58 PM CDT [facility] Comment: Negative result does not rule out HIV infection. If exposure to HIV infection occurred <14 days ago, contact the laboratory to request addition of HIV-1/HIV-2 RNA detection, Plasma (HIP12). HIV-1 Ab Screen, P Negative Negative 08/21/2024 12:58 PM CDT [facility] Comment: Negative result does not rule out HIV infection. If exposure to HIV infection occurred <14 days ago, contact the laboratory to request addition of HIV-1/HIV-2 RNA detection, Plasma (HIP12). HIV-2 Ab Screen, P Negative Negative 08/21/2024 12:58 PM CDT [facility] Comment: Negative result does not rule out HIV infection. If exposure to HIV infection occurred <14 days ago, contact the laboratory to request addition of HIV-1/HIV-2 RNA detection, Plasma (HIP12). Blood (Blood, Venous) 08/21/2024 8:09 AM CDT 08/21/2024 11:20 AM CDT Erikc Baldwin M.D. LAB MICROBIOLOGY - BLOOD ORDE RABLES Final Result [facility] [address] [place] [address], [facility] [place] [address] [place] [address] * Thyroid Function Navarro (08/21/2024 8:09 AM CDT) TSH, Sensitive 0.5 0.3 - 4.2 mIU/L 08/21/2024 9:09 AM CDT MKTO Blood (Blood, Venous) 08/21/2024 8:09 AM CDT 08/21/2024 8:18 AM CDT Erick Baldwin M.D. LAB BLOOD ADD-ON Final Result [facility] [address] [place] [address], [address] [address] * Osmolality (08/21/2024 8:09 AM CDT) Osmolality, S 293 276 - 306 mOsm/kg 08/21/2024 9:13 AM CDT MKTO Blood (Blood, Venous) 08/21/2024 8:09 AM CDT 08/21/2024 8:18 AM CDT Erick Baldwin M.D. LAB BLOOD ADD-ON Final Result [facility] [address] [place] [address], [address] [address] * (ABNORMAL) pH (08/21/2024 7:57 AM CDT) pH 7.21(L) 7.35 - 7.45 pH 08/21/2024 8:08 AM CDT [facility] Blood 08/21/2024 7:57 AM CDT 08/21/2024 8:00 AM CDT Erick Baldwin M.D. LAB HISTORICAL ORDERS Final R esult Performing Organization Address City/[facility]/ZIP Co de Phone Number [facility] [address] [place] [address], [facility] [address] [place] [address] * Procalcitonin (08/21/2024 7:57 AM CDT) Procalcitonin, S 0.13 0.00 - 0.24 ng/mL 08/21/2024 9:09 AM CDT [facility] Comment: Procalcitonin <0.25 ng/mL may indicate lower probability of bacteremia or bacterial pneumonia. Intracellular bacteria, viruses, and fungi do not cause elevation of procalcitonin, so low values (<0.25 ng/mL) do not rule out other infections. Blood (Blood, Venous) 08/21/2024 7:57 AM CDT 08/21/2024 9:09 AM CDT Erick Baldwin M.D. LAB BLOOD ADD-ON Final Result Performing Organization Address City/[facility]/ZIP Co de Phone Number [facility] [address] [place] [address], [facility] [address] [place] [address] * (ABNORMAL) Calcium, Ionized (08/21/2024 7:57 AM CDT) Calcium, Ionized, B 4.53(L) 4.65 - 5.30 mg/dL 08/21/2024 8:08 AM CDT MKTO Blood 08/21/2024 7:57 AM CDT 08/21/2024 8:00 AM CDT Erick Baldwin M.D. LAB BLOOD NON ADD-ON Final Re sult [facility] [address] [place] [address], [address] [address] * Acetaminophen Level (08/21/2024 7:57 AM CDT) Acetaminophen, P <5 Therapeutic Range: 10-30 mcg/mL 08/21/2024 8:21 AM CDT MKTO Blood (Blood, Venous) 08/21/2024 7:57 AM CDT 08/21/2024 8:01 AM CDT us Erick Baldwin M.D. LAB BLOOD ADD-ON Final Result Performing Organization Address City/[facility]/ZIP Co de Phone Number [facility] [address] [place] [address], [address] [address] * Salicylate Level (08/21/2024 7:57 AM CDT) Salicylate, P <0.5 <30.0 mg/dL 08/21/2024 8:21 AM CDT [facility]TO Blood (Blood, Venous) 08/21/2024 7:57 AM CDT 08/21/2024 8:01 AM CDT Erick Baldwin M.D. LAB BLOOD ADD-ON Final Result [facility] [address] [place] [address], [address] [address] * CT Lumbar Spine by Reconstruction (08/21/2024 7:03 AM CDT) Anatomical Region Laterality Modality Lumbar Spine, Neuroradiology RST LOS, Neuroradiology ARZ LOS, Neuroradiology FLA LOS N/A Computed Tomography Impressions 08/21/2024 7:11 AM CDT 1. No acute thoracic or lumbar spine abnormality. Narrative 08/21/2024 7:11 AM CDT EXAM: CT THORACIC SPINE BY RECONSTRUCTION, CT LUMBAR SPINE BY RECONSTRUCTION COMPARISON: CT chest abdomen pelvis 08/21/2024 FINDINGS: Thoracic and lumbar vertebral body heights and alignment are maintained. No compression deformity or subluxation. Posterior elements are intact and in anatomic alignment. No suspicious osseous lesion. Minimal thoracolumbar spondylosis without significant canal narrowing. Paraspinal fat planes are preserved. Please see separately dictated CT CTA chest abdomen pelvis for additional findings. Procedure Note Jacob Hernandez M.D. - 08/21/2024 EXAM: CT THORACIC SPINE BY RECONSTRUCTION, CT LUMBAR SPINE BYRECONSTRUCTION COMPARISON: CT chest abdomen pelvis 08/21/2024 FINDINGS: Thoracic and lumbar vertebral body heights and alignment aremaintained. No compression deformity or subluxation. Posterior elementsare intact and in anatomic alignment. No suspicious osseous lesion.Minimal thoracolumbar spondylosis without significant canal narrowing. Paraspinal fat planes are preserved. Pleasesee separately dictated CT CTA chest abdomen pelvis for additionalfindings. IMPRESSION: 1. No acute thoracic or lumbar spine abnormality. Luigi Pascal M.D. IMJax CT PROCEDURES Final Resu lt * CT Thoracic Spine by Reconstruction (08/21/2024 7:02 AM CDT) Anatomical Region Laterality Modality Thoracic Spine, Neuroradiolo gy RST LOS, Neuroradiology ARZ LOS, Neuroradiology FLA LOS N/A Computed Tomography Impressions 08/21/2024 7:11 AM CDT 1. No acute thoracic or lumbar spine abnormality. Narrative 08/21/2024 7:11 AM CDT EXAM: CT THORACIC SPINE BY RECONSTRUCTION, CT LUMBAR SPINE BY RECONSTRUCTION COMPARISON: CT chest abdomen pelvis 08/21/2024 FINDINGS: Thoracic and lumbar vertebral body heights and alignment are maintained. No compression deformity or subluxation. Posterior elements are intact and in anatomic alignment. No suspicious osseous lesion. Minimal thoracolumbar spondylosis without significant canal narrowing. Paraspinal fat planes are preserved. Please see separately dictated CT CTA chest abdomen pelvis for additional findings. Procedure Note Jacob Hernandez M.D. - 08/21/2024 EXAM: CT THORACIC SPINE BY RECONSTRUCTION, CT LUMBAR SPINE BYRECONSTRUCTION COMPARISON: CT chest abdomen pelvis 08/21/2024 FINDINGS: Thoracic and lumbar vertebral body heights and alignment aremaintained. No compression deformity or subluxation. Posterior elementsare intact and in anatomic alignment. No suspicious osseous lesion.Minimal thoracolumbar spondylosis without significant canal narrowing. Paraspinal fat planes are preserved. Pleasesee separately dictated CT CTA chest abdomen pelvis for additionalfindings. IMPRESSION: 1. No acute thoracic or lumbar spine abnormality. Luigi Pascal M.D. IMG CT PROCEDURES Final Resu lt * CT Chest Abdomen Pelvis Angiogram with IV Contrast (08/21/2024 6:42 AM CDT) Anatomical Region Laterality Modality Chest, Abdomen, Pelvis, Card iovascular RST LOS, Abdominal ARZ LOS, Thoracic ARZ LOS, Vascular Interventional ARZ LOS, Thoracic FLA LOS, Procedural, Vascular Interventional NWWI LOS Computed Tomography Impressions 08/21/2024 7:01 AM CDT 1. Minimally displaced left 11th rib fracture. 2. No acute traumatic intrathoracic abnormality. 3. No acute traumatic abdominopelvic findings. Narrative 08/21/2024 7:01 AM CDT EXAM: CT CHEST ABDOMEN PELVIS ANGIOGRAM WITH IV CONTRAST Including 3D image post-processing with or without AI assistance. COMPARISON: None FINDINGS: VASCULAR Aortic dissection: No. Acute intramural hematoma (IMH): No. Penetrating atherosclerotic ulcer (CEDRICK): No. Aortic root: Obscured by motion artifact. Ascending aorta: Normal caliber. Aortic arch: Normal caliber. Descending thoracic aorta: Normal caliber. Abdominal aorta: Normal caliber. Celiac artery: Patent. Superior mesenteric artery: Patent. Renal arteries: Patent. Inferior mesenteric artery: Patent. Common iliac arteries: Patent. Included iliofemoral systems: Patent. Pulmonary arteries: No filling defect within the pulmonary arterial tree to the segmental level. Mixing artifact limits evaluation of the left upper lobe branches. IVC: Normal caliber. Portal venous: Suboptimal evaluation due to phase of contrast. CHEST Lines, Tubes and Devices:Endotracheal tube terminates in mid trachea and enteric tube terminates mid esophagus. Mediastinum: No enlarged lymph nodes. Normal included thyroid. Decompressed esophagus. Heart and Pericardium: Normal heart size. No pericardial effusion. No significant coronary calcifications. Lungs, Airways and Pleura: No pneumothorax, pleural effusion or consolidative airspace disease. Clear central airways. No suspicious pulmonary nodule or mass. Dependent atelectasis. Emphysema. Chest Wall: Acute minimally displaced left 11th rib fracture. Thoracic vertebral body heights and alignment are maintained. ABDOMEN/PELVIS Liver: Normal liver size and contour. No focal lesion. Gallbladder/bile ducts: Normal gallbladder and bile ducts. Pancreas: Normal. Spleen: Normal. Adrenal glands: Normal. Kidneys/Ureters: Kidneys are symmetric in size and parenchymal enhancement pattern. No hydronephrosis or nephrolithiasis. Gastrointestinal tract: Normal distal esophagus, stomach and duodenal sweep. No bowel obstruction or appreciable wall thickening. Several loops of small bowel are fluid-filled, though not particularly distended. Normal appendix. Peritoneum/Retroperitoneum: Lymph nodes: No lymphadenopathy. Pelvis: No free fluid. Normal urinary bladder with George catheter in place.Normal reproductive organs. Musculoskeletal: No acute soft tissue or osseous abnormality. Intact hips and bony pelvis. Procedure Note Jacob Hernandez M.D. - 08/21/2024 EXAM: CT CHEST ABDOMEN PELVIS ANGIOGRAM WITH IV CONTRAST Including 3D image post-processing with or without AI assistance. COMPARISON: None FINDINGS: VASCULAR Aortic dissection: No. Acute intramural hematoma (IMH): No. Penetrating atherosclerotic ulcer (CEDRICK): No. Aortic root: Obscured by motion artifact. Ascending aorta: Normal caliber. Aortic arch: Normal caliber. Descending thoracic aorta: Normal caliber. Abdominal aorta: Normal caliber. Celiac artery: Patent. Superior mesenteric artery: Patent. Renal arteries: Patent. Inferior mesenteric artery: Patent. Common iliac arteries: Patent. Included iliofemoral systems: Patent. Pulmonary arteries: No filling defect within the pulmonary arterial treeto the segmental level. Mixing artifact limits evaluation of the leftupper lobe branches. IVC: Normal caliber. Portal venous: Suboptimal evaluation due to phase of contrast. CHEST Lines, Tubes and Devices:Endotracheal tube terminates in mid trachea andenteric tube terminates mid esophagus. Mediastinum: No enlarged lymph nodes. Normal included thyroid.Decompressed esophagus. Heart and Pericardium: Normal heart size. No pericardial effusion. Nosignificant coronary calcifications. Lungs, Airways and Pleura: No pneumothorax, pleural effusion orconsolidative airspace disease. Clear central airways. No suspiciouspulmonary nodule or mass. Dependent atelectasis. Emphysema. Chest Wall: Acute minimally displaced left 11th rib fracture. Thoracicvertebral body heights and alignment are maintained. ABDOMEN/PELVIS Liver: Normal liver size and contour. No focal lesion. Gallbladder/bile ducts: Normal gallbladder and bile ducts. Pancreas: Normal. Spleen: Normal. Adrenal glands: Normal. Kidneys/Ureters: Kidneys are symmetric in size and parenchymal enhancementpattern. No hydronephrosis or nephrolithiasis. Gastrointestinal tract: Normal distal esophagus, stomach and duodenalsweep. No bowel obstruction or appreciable wall thickening. Several loopsof small bowel are fluid-filled, though not particularly distended. Normalappendix. Peritoneum/Retroperitoneum: Lymph nodes: No lymphadenopathy. Pelvis: No free fluid. Normal urinary bladder with George catheter inplace.Normal reproductive organs. Musculoskeletal: No acute soft tissue or osseous abnormality. Intact hipsand bony pelvis. IMPRESSION: 1. Minimally displaced left 11th rib fracture. 2. No acute traumatic intrathoracic abnormality. 3. No acute traumatic abdominopelvic findings. Luigi ABREU CT PROCEDURES Final Resu lt * CT Cervical Spine without IV Contrast (08/21/2024 6:40 AM CDT) Anatomical Region Laterality Modality Cervical Spine, Neuroradiolo gy RST LOS, Neuroradiology ARZ [facility], Neuroradiology FLA [facility] N/A Computed Tomography 08/21/2024 6:38 AM CDT Impressions 08/21/2024 6:43 AM CDT 1. No acute intracranial abnormality. 2. No acute cervical spine abnormality. Narrative 08/21/2024 6:43 AM CDT EXAM: CT HEAD WITHOUT IV CONTRAST, CT CERVICAL SPINE WITHOUT IV CONTRAST COMPARISON: None FINDINGS: CT HEAD: Intracranial hemorrhage: None. Mass effect or midline shift: None. Adams-white differentiation: Maintained. White matter disease: None. Brain Volume: Normal. Ventricles, Sulci and basal cisterns: Normal. Paranasal sinuses and mastoids: Clear. Musculoskeletal: Normal. CT CERVICAL SPINE: Surgical changes: None. Alignment: Craniocervical junction, atlantodental articulation and posterior elements are intact and in anatomic alignment. Trauma: No acute fracture. Vertebral body heights are maintained. Degeneration: Multilevel degenerative endplate changes without significant spinal canal stenosis. Multilevel neural foraminal stenosis. Paraspinal: No acute paraspinal abnormality. Lung apices: Emphysema. Other: N/A Procedure Note Jacob Hernandez M.D. - 08/21/2024 EXAM: CT HEAD WITHOUT IV CONTRAST, CT CERVICAL SPINE WITHOUT IV CONTRAST COMPARISON: None FINDINGS: CT HEAD: Intracranial hemorrhage: None. Mass effect or midline shift: None. Adams-white differentiation: Maintained. White matter disease: None. Brain Volume: Normal. Ventricles, Sulci and basal cisterns: Normal. Paranasal sinuses and mastoids: Clear. Musculoskeletal: Normal. CT CERVICAL SPINE: Surgical changes: None. Alignment: Craniocervical junction, atlantodental articulation andposterior elements are intact and in anatomic alignment. Trauma: No acute fracture. Vertebral body heights are maintained. Degeneration: Multilevel degenerative endplate changes without significantspinal canal stenosis. Multilevel neural foraminal stenosis. Paraspinal: No acute paraspinal abnormality. Lung apices: Emphysema. Other: N/A IMPRESSION: 1. No acute intracranial abnormality. 2. No acute cervical spine abnormality. Luigi Pascal M.D. IMJax CT PROCEDURES Final Resu lt * CT Head without IV Contrast (08/21/2024 6:39 AM CDT) Anatomical Region Laterality Modality Head, Neuroradiology RST LOS , Neuroradiology ARZ LOS, Neuroradiology FLA LOS N/A Computed Tomography 08/21/2024 6:36 AM CDT Impressions 08/21/2024 6:43 AM CDT 1. No acute intracranial abnormality. 2. No acute cervical spine abnormality. Narrative 08/21/2024 6:43 AM CDT EXAM: CT HEAD WITHOUT IV CONTRAST, CT CERVICAL SPINE WITHOUT IV CONTRAST COMPARISON: None FINDINGS: CT HEAD: Intracranial hemorrhage: None. Mass effect or midline shift: None. Adams-white differentiation: Maintained. White matter disease: None. Brain Volume: Normal. Ventricles, Sulci and basal cisterns: Normal. Paranasal sinuses and mastoids: Clear. Musculoskeletal: Normal. CT CERVICAL SPINE: Surgical changes: None. Alignment: Craniocervical junction, atlantodental articulation and posterior elements are intact and in anatomic alignment. Trauma: No acute fracture. Vertebral body heights are maintained. Degeneration: Multilevel degenerative endplate changes without significant spinal canal stenosis. Multilevel neural foraminal stenosis. Paraspinal: No acute paraspinal abnormality. Lung apices: Emphysema. Other: N/A Procedure Note Jacob Hernandez M.D. - 08/21/2024 EXAM: CT HEAD WITHOUT IV CONTRAST, CT CERVICAL SPINE WITHOUT IV CONTRAST COMPARISON: None FINDINGS: CT HEAD: Intracranial hemorrhage: None. Mass effect or midline shift: None. Adams-white differentiation: Maintained. White matter disease: None. Brain Volume: Normal. Ventricles, Sulci and basal cisterns: Normal. Paranasal sinuses and mastoids: Clear. Musculoskeletal: Normal. CT CERVICAL SPINE: Surgical changes: None. Alignment: Craniocervical junction, atlantodental articulation andposterior elements are intact and in anatomic alignment. Trauma: No acute fracture. Vertebral body heights are maintained. Degeneration: Multilevel degenerative endplate changes without significantspinal canal stenosis. Multilevel neural foraminal stenosis. Paraspinal: No acute paraspinal abnormality. Lung apices: Emphysema. Other: N/A IMPRESSION: 1. No acute intracranial abnormality. 2. No acute cervical spine abnormality. us Luigi Pascal M.D. [facility] [place] [facility] PROCEDURES Final Resu lt * (ABNORMAL) Blood Gas, Venous, POCT, Blood (08/21/2024 5:57 AM CDT) pH, Venous, POCT, B 7.33 7.32 - 7.43 08/21/2024 6:02 AM CDT NPRG pCO2, Venous, POCT, B <18(L) 41 - 51 mm Hg 08/21/2024 6:02 AM CDT NPRG pO2, Venous, POCT, B 199 Not applicable mm Hg 08/21/2024 6:02 AM CDT NPRG HCO3, Venous, POCT, B 6 Not applicable mmol/L 08/21/2024 6:02 AM CDT NPRG Base Excess, Venous, POCT, B -20 Not applicable mmol/L 08/21/2024 6:02 AM CDT NPRG O2 Saturation, Venous, POCT, B 100 Not applicable % 08/21/2024 6:02 AM CDT NPRG Sample Type, Blood Gas, POCT IZA 08/21/2024 6:02 AM CDT NPRG Blood 08/21/2024 5:57 AM CDT 08/21/2024 5:57 AM CDT us Luigi Pascal M.D. LAB POCT ORDERABLES - DEVICE Final Result [facility] [address] [place] [address], [facility] NPRG [facility] [address] [place] [address] * (ABNORMAL) Morphology Evaluation (08/21/2024 5:15 AM CDT) RBC Morphology Normal 08/21/2024 6:33 AM CDT NPRG PLT Morphology Normal 08/21/2024 6:33 AM CDT NPRG PLT Estimate Adequate Adequate 08/21/2024 6:33 AM CDT NPRG Reactive/Atypic al Lymphocytes Present(A) Not Seen 08/21/2024 6:33 AM CDT NPRG Smudge Cells Present(A) Not Seen 08/21/2024 6:33 AM CDT NPRG Blood 08/21/2024 5:15 AM CDT 08/21/2024 5:17 AM CDT us Soft Results Interface LAB BLOOD ADD-ON Edited R esult - Final [facility] [address] [place] [address], [place] [address] [place] [address] * Troponin T, Baseline with 2 Hour/6 Hour Reflex Biomarker Panel (08/21/2024 5:15 AM CDT) Troponin T, Baseline, 5th gen 9 <=15 ng/L 08/21/2024 5:38 AM CDT NPRG Blood (Blood, Venous) 08/21/2024 5:15 AM CDT 08/21/2024 5:17 AM CDT us Luigi Pascal M.D. LAB BLOOD TROPONIN Final Res ult Performing Organization Address City/[facility]/ZIP Co de Phone Number [facility] [address] [place] [address], [place] [address] [address] [place] [address] * (ABNORMAL) Lactate (08/21/2024 5:15 AM CDT) Lactate, P 10.5(H) 0.5 - 2.2 mmol/L 08/21/2024 5:34 AM CDT NPRG Blood (Blood, Venous) 08/21/2024 5:15 AM CDT 08/21/2024 5:17 AM CDT us Luigi Pascal M.D. LAB BLOOD NON ADD-ON Final R esult [facility] [address] [place] [address], [place] [address] [address] [place] [address] * (ABNORMAL) Comprehensive Metabolic Panel (08/21/2024 5:15 AM CDT) Potassium, P 3.7 3.6 - 5.2 mmol/L 08/21/2024 5:59 AM CDT NPRG Sodium, P 139 135 - 145 mmol/L 08/21/2024 5:59 AM CDT NPRG Chloride, P 99 98 - 107 mmol/L 08/21/2024 5:59 AM CDT NPRG Bicarbonate, P 18(L) 22 - 29 mmol/L 08/21/2024 5:59 AM CDT NPRG Anion Gap, P 22(H) 7 - 15 08/21/2024 5:59 AM CDT NPRG BUN (Blood Urea Nitrogen), P 16 8 - 24 mg/dL 08/21/2024 5:59 AM CDT NPRG Creatinine 1.37(H) 0.74 - 1.35 mg/dL 08/21/2024 5:59 AM CDT NPRG Estimated GFR (eGFR) 64 >=60 mL/min/BS A 08/21/2024 5:59 AM CDT NPRG Comment: Estimated GFR calculated using the 2020 CKD_EPI creatinine equation. Calcium, Total, P 9.2 8.6 - 10.0 mg/dL 08/21/2024 5:59 AM CDT NPRG Glucose, P 248(H) 70 - 140 mg/dL 08/21/2024 5:59 AM CDT NPRG Protein, Total, P 7.9 6.3 - 7.9 g/dL 08/21/2024 5:59 AM CDT NPRG Albumin, P 4.7 3.5 - 5.0 g/dL 08/21/2024 5:59 AM CDT NPRG Aspartate Aminotransferase (AST), P 112(H) 8 - 48 U/L 08/21/2024 6:06 AM CDT NPRG Alkaline Phosphatase, P 80 40 - 129 U/L 08/21/2024 5:59 AM CDT NPRG Alanine Aminotransferase (ALT), P 114(H) 7 - 55 U/L 08/21/2024 5:59 AM CDT NPRG Bilirubin, Total, P 2.0(H) 0.0 - 1.2 mg/dL 08/21/2024 5:59 AM CDT NPRG Blood (Blood, Venous) 08/21/2024 5:15 AM CDT 08/21/2024 5:17 AM CDT Luigi Pascal M.D. LAB BLOOD ADD-ON Final Resul t [facility] [address] [place] [address], [facility] NPRG [facility] [address] [place] [address] * Intubation (08/21/2024 5:08 AM CDT) Narrative Luigi Pascal M.D. - 08/21/2024 5:08 AM CDT Luigi Pascal M.D. 08/22/2024 3:51 AM Intubation Performed by: Luigi Pascal M.D. Authorized by: Luigi Pascal M.D. Care team members present 1. Luigi Pascal M.D. 2. Mark Anthony Palacios R.N. 3. Lionel Cosby R.N. 4. Tierra Floyd R.N., [facility] Patient location during procedure: ED PROCEDURE DETAILS: Mask difficulty assessment: not attempted Final airway type: video laryngoscope Laryngeal Manipulation: no Final best view of glottic structures - Cormack/Lehane Score: grade 1 ETT location: oral VL device: glide scope [place] scope blade size: 4 Tube size: 8 ETT distance at teeth/gum: 27 Oral tube type: standard ETT Cuffed: yes Number of attempt to successful placement: 1 Airway confirmation: bilateral breath sounds, positive ETCO2, bilateral chest rise, chest x-ray and visualized tube between the cords CONSENT Consent obtained: none - emergent situation UNIVERSAL PROTOCOL All relevant documentation and testing were reviewed and available. All required blood products, implants, devices and or special equipment were made available as applicable. Pre-procedure verification was conducted and the correct site was marked if required. A fire risk and smoke assessment were done as applicable. The procedural time-out to verify correct patient, correct side/site, and procedure was conducted prior to performing the procedure and confirmed in a procedural pause. PRE PROCEDURE DETAILS: Pre evaluation for airway management: airway protection Urgency: emergent Preop assessment of probable difficulty: no difficulty anticipated Preoxygenation: nonrebreather mask POST PROCEDURE DETAILS: Procedure outcome: successful Notable Events: no complications us Luigi Pascal M.D. ANESTHESIA ORDERABLES Final Result * Critical Care (08/21/2024 5:08 AM CDT) Narrative Luigi Pascal M.D. - 08/21/2024 5:08 AM CDT Luigi Pascal M.D. 08/22/2024 3:51 AM Critical Care Performed by: Luigi Pascal M.D. Authorized by: Luigi Pascal M.D. Critical care provider statement: Critical care total time (minutes): 75 Critical care time was exclusive of: separately billable procedures and treating other patients Critical care was necessary to treat or prevent imminent or life-threatening deterioration of the following conditions: toxidrome Critical care was time spent personally by me on the following activities: development of treatment plan with patient or surrogate, discussing treatment issues with family or surrogate, discussions with consultants, documenting in the patient chart, evaluation of patient's response to treatment, examination of patient, ordering and performing treatments and interventions, ordering and review of laboratory studies, ordering and review of radiographic studies, re-evaluation of patient's condition and review of old charts Luigi Pascal M.D. PROCEDURE/MINOR SURGICAL ORD ERABLES Edited Result - Final from Last 3 Months Insurance [facility] Advance Directives For more information, please contact: [phone] * Full Code (Latest Code Status on File) Date Activated Date Inactivated Comments 08/21/2024 7:59 AM 08/27/2024 4:24 PM Question Answer Comments Full Code: Not Discussed Due to: Patient does not have the [facility] Care Teams Pile Operator Relationship Specialty Start Date End Date Elsewhere, Pcp PCP - General Internal Medicine 08/21/24
--- OUTSIDE RECORDS SUMMARY | 2024-11-09 16:36 | XMS_ITS | Encounter Summary ---
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 Gender Identity Not on file Sexual Orientation Not on file documented as of this encounter Plan of Treatment Upcoming Encounters Date Type Department Care Team (Late st Contact Info) Description 11/10/2024 1:00 PM CDT Appointment [facility] Cardiac and Pulmonary Rehabilitation [address] [place] [phone] Xander Byrnes MD [address] [place] [phone] 11/12/2024 1:00 PM CDT Appointment [facility] Cardiac and Pulmonary Rehabilitation [address] [place] [address] [phone] Xander Byrnes MD [address] [place] [phone] 11/14/2024 1:00 PM CDT Appointment [facility] Cardiac and Pulmonary Rehabilitation [address] [place] [address] [phone] Xander Byrnes MD [address] [place] [phone] 11/19/2024 1:00 PM CDT Appointment [facility] Cardiac and Pulmonary Rehabilitation [address] [place] [phone] Xander Byrnes MD [address] [place] [address] [phone] 11/21/2024 1:00 PM CDT Appointment [facility] Cardiac and Pulmonary [address] [phone] Xander Byrnes MD [address] [place] [address] [phone] 11/24/2024 1:00 PM CDT Appointment [facility] Cardiac and Pulmonary Rehabilitation [address] [phone] Xander Byrnes MD [address] [place] [address] [phone] 11/26/2024 1:00 PM CDT Appointment [facility] Cardiac and Pulmonary [address] [phone] Xander Byrnes MD [address] [place] [address] [phone] 11/28/2024 3:00 PM CDT Appointment [facility] Cardiac and Pulmonary Rehabilitation [address] [place] [phone] Xander Byrnes MD [address] [place] [address] [phone] 12/01/2024 1:00 PM CDT Appointment [facility] Cardiac and Pulmonary Rehabilitation [address] [phone] Xander Byrnes MD [address] [place] [phone] 12/03/2024 1:00 PM CDT Appointment [facility] Cardiac and Pulmonary Rehabilitation [address] [phone] Xander Byrnes MD [address] [place] [address] [phone] 12/08/2024 1:00 PM CDT Appointment [facility] Cardiac [facility] Pulmonary Rehabilitation [address] [phone] Xander Byrnes MD [address] [place] [phone] documented as of this encounter Visit Diagnoses Not on filedocumented in this encounter Care Teams Electro Mechanical Assembler Relationship Specialty [place] [address] [place] [address] PCP - General Family Medicine 10/03/24 documented as of this encounter
--- OUTSIDE RECORDS SUMMARY | 2024-11-09 16:36 | XMS_ITS | Encounter Summary ---
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 Gender Identity Not on file Sexual Orientation Not on file documented as of this encounter Plan of Treatment Upcoming Encounters Date Type Department Care Team (Late st Contact Info) Description 11/10/2024 1:00 PM CDT Appointment [facility] Cardiac and Pulmonary Rehabilitation [address] [place] [phone] Xander Byrnes MD [address] [place] [phone] 11/12/2024 1:00 PM CDT Appointment [facility] Cardiac and Pulmonary Rehabilitation [address] [place] [address] [phone] Xander Byrnes MD [address] [place] [phone] 11/14/2024 1:00 PM CDT Appointment [facility] Cardiac and Pulmonary Rehabilitation [address] [place] [address] [phone] Xander Byrnes MD [address] [place] [phone] 11/19/2024 1:00 PM CDT Appointment [facility] Cardiac and Pulmonary Rehabilitation [address] [place] [phone] Xander Byrnes MD [address] [place] [address] [phone] 11/21/2024 1:00 PM CDT Appointment [facility] Cardiac and Pulmonary [address] [phone] Xander Byrnes MD [address] [place] [address] [phone] 11/24/2024 1:00 PM CDT Appointment [facility] Cardiac and Pulmonary Rehabilitation [address] [phone] Xander Byrnes MD [address] [place] [address] [phone] 11/26/2024 1:00 PM CDT Appointment [facility] Cardiac and Pulmonary [address] [phone] Xander Byrnes MD [address] [place] [address] [phone] 11/28/2024 3:00 PM CDT Appointment [facility] Cardiac and Pulmonary Rehabilitation [address] [place] [phone] Xander Byrnes MD [address] [place] [address] [phone] 12/01/2024 1:00 PM CDT Appointment [facility] Cardiac and Pulmonary Rehabilitation [address] [phone] Xander Byrnes MD [address] [place] [phone] 12/03/2024 1:00 PM CDT Appointment [facility] Cardiac and Pulmonary Rehabilitation [address] [phone] Xander Byrnes MD [address] [place] [address] [phone] 12/08/2024 1:00 PM CDT Appointment [facility] Cardiac [facility] Pulmonary Rehabilitation [address] [phone] Xander Byrnes MD [address] [place] [phone] documented as of this encounter Visit Diagnoses Not on filedocumented in this encounter Care Teams Outreach Associate Relationship Specialty [place] [address] [place] [address] PCP - General Family Medicine 10/03/24 documented as of this encounter
--- OUTSIDE RECORDS SUMMARY | 2024-11-09 16:36 | XMS_ITS | Clinical Summary ---
Author Organization [facility] Address [address] [place] [address] Care Team Providers Care Rn Bsn Name Role Phone Sha Pedroza MD Primary Care Provider [phone] Encounters Date Type Department Care Team Description 11/07/2024 1:00 PM CDT - 11/07/2024 11:59 PM CDT Hospital Encounter [facility] Cardiac and Pulmonary Rehabilitation [address] [place] [phone] Xander Byrnes MD Arrived Discharge Disposition: Home or Self Care 11/07/2024 Travel 11/05/2024 12:50 PM CDT - 11/05/2024 11:59 PM CDT Hospital Encounter [facility] Cardiac and Pulmonary Rehabilitation [address] [place] [phone] Xander Byrnes MD Discharge Disposition: Home or Self Care 11/05/2024 Travel 11/03/2024 12:53 PM CDT - 11/03/2024 11:59 PM CDT Hospital Encounter [facility] Cardiac and Pulmonary Rehabilitation [address] [place] [phone] Xander Byrnes MD Discharge Disposition: Home or Self Care 11/03/2024 Travel 11/02/2024 Travel 10/31/2024 1:41 PM CDT - 10/31/2024 11:59 PM CDT Hospital Encounter [facility] Cardiac and Pulmonary Rehabilitation [address] [place] [phone] Xander Byrnes MD Discharge Disposition: Home or Self Care 10/31/2024 Travel 10/29/2024 1:36 PM CDT - 10/29/2024 11:59 PM CDT Hospital Encounter [facility] Cardiac and Pulmonary Rehabilitation [address] [phone] Xander Byrnes MD Discharge Disposition: Home or Self Care 10/29/2024 Travel 10/27/2024 1:41 PM CDT - 10/27/2024 11:59 PM CDT Hospital Encounter [facility] Cardiac [facility] Pulmonary [address] [phone] Xander Byrnes MD Discharge Disposition: Home or Self Care 10/26/2024 Travel 10/24/2024 12:49 PM CDT - 10/24/2024 11:59 PM CDT Hospital Encounter [facility] Cardiac [facility] Pulmonary [address] [phone] Xander Byrnes MD Discharge Disposition: Home or Self Care 10/24/2024 Travel 10/22/2024 12:46 PM CDT - 10/22/2024 11:59 PM CDT Hospital Encounter [facility] Cardiac [facility] Pulmonary [address] [phone] Xander Byrnes MD Discharge Disposition: Home or Self Care 10/22/2024 Travel 10/20/2024 12:44 PM CDT - 10/20/2024 11:59 PM CDT Hospital Encounter [facility] Cardiac [facility] Pulmonary [address] [phone] Xander Byrnes MD Discharge Disposition: Home or Self Care 10/20/2024 Travel 10/19/2024 Travel 10/17/2024 1:38 PM CDT - 10/17/2024 11:59 PM CDT Hospital Encounter [facility] Cardiac and Pulmonary Rehabilitation [address] [phone] Xander Byrnes MD Discharge Disposition: Home or Self Care 10/17/2024 Travel 10/15/2024 1:47 PM CDT - 10/15/2024 11:59 PM CDT Hospital Encounter [facility] Cardiac [facility] Pulmonary Rehabilitation [address] [phone] Xander Byrnes MD Discharge Disposition: Home or Self Care 10/15/2024 Travel 10/13/2024 1:45 PM CDT - 10/13/2024 11:59 PM CDT Hospital Encounter [facility] Cardiac [facility] Pulmonary [address] [phone] Xander Byrnes MD Discharge Disposition: Home or Self Care 10/13/2024 Travel 10/12/2024 Travel 10/10/2024 2:41 PM CDT - 10/10/2024 11:59 PM CDT Hospital Encounter [facility] Cardiac [facility] Pulmonary [address] [phone] Xander Byrnes MD Discharge Disposition: Home or Self Care 10/10/2024 Travel 10/10/2024 Transcribe Orders GENERIC EXTERNAL DATA DEPARTMENT System, Provider Not In 10/08/2024 Travel 10/07/2024 7:33 AM CDT - 10/07/2024 11:59 PM CDT Hospital Encounter [facility] Cardiac and Pulmonary Rehabilitation [address] [phone] Xander Byrnes MD Discharge Disposition: Home or Self Care 10/07/2024 Travel 10/03/2024 Travel 09/25/2024 Transcribe Orders GENERIC EXTERNAL DATA DEPARTMENT Xander Byrnes MD Chronic systolic heart failure (H) (Primary Dx) 09/03/2024 Transcribe Orders GENERIC EXTERNAL DATA DEPARTMENT Xander Byrnes MD Congestive heart failure (CHF) (H) (Primary Dx) from Last 3 Months Social History Tobacco Use Types Packs/Day Years Used Date Smoking Tobacco: Never Assessed Sex and Gender Information Value Date Recorded Sex Assigned at Not on file 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 Gender Identity Not on file Sexual Orientation Not on file Plan of Treatment Upcoming Encounters Date Type Department Care Team (Late st Contact Info) Description 11/10/2024 1:00 PM CDT Appointment [facility] Cardiac and Pulmonary Rehabilitation [address] [phone] Xander Byrnes MD [address] [place] [phone] 11/12/2024 1:00 PM CDT Appointment [facility] Cardiac and Pulmonary [address] [phone] Xander Byrnes MD [address] [place] [address] [phone] 11/14/2024 1:00 PM CDT Appointment [facility] Cardiac and Pulmonary Rehabilitation [address] [phone] Xander Byrnes MD [address] [place] [phone] 11/19/2024 1:00 PM CDT Appointment [facility] Cardiac and Pulmonary Rehabilitation [address] [phone] Xander Byrnes MD [address] [place] [phone] 11/21/2024 1:00 PM CDT Appointment [facility] Cardiac and Pulmonary Rehabilitation [address] [phone] Xander Byrnes MD [address] [place] [phone] 11/24/2024 1:00 PM CDT Appointment [facility] Cardiac and Pulmonary Rehabilitation [address] [phone] Xander Byrnes MD [address] [place] [phone] 11/26/2024 1:00 PM CDT Appointment [facility] Cardiac and Pulmonary [address] [phone] Xander Byrnes MD [address] [place] [address] [phone] 11/28/2024 3:00 PM CDT Appointment [facility] Cardiac and Pulmonary [address] [phone] Xander Byrnes MD [address] [place] [address] [phone] 12/01/2024 1:00 PM CDT Appointment [facility] Cardiac and Pulmonary [address] [phone] Xander Byrnes MD [address] [place] [address] [phone] 12/03/2024 1:00 PM CDT Appointment [facility] Cardiac and Pulmonary Rehabilitation [address] [phone] Xander Byrnes MD [address] [place] [phone] 12/08/2024 1:00 PM CDT Appointment [facility] Cardiac and Pulmonary Rehabilitation [address] [phone] Xander Byrnes MD [address] [place] [phone] Health Maintenance Due Date Last Done Comments ADVANCE CARE PLANNING 1976 ALT 1976 ANNUAL REVIEW OF HM ORDERS [address] COLONOGRAPHY 1976 DIABETES SCREENING 1976 FIT 1976 FLEX SIG 1976 HF ACTION PLAN 1976 LIPID 1976 TSH W/FREE T4 REFLEX 1976 sDNA (Cologuard) 1976 YEARLY PREVENTIVE VISIT 02/27/1979 HEPATITIS B VACCINE (1 of 3 - 19+ 3-dose series) 02/27/1995 PNEUMOCOCCAL VACCINE: PEDIATRICS (0 to 5 YEARS) AND AT-RISK PATIENTS (6 to 49 YEARS) (1 of 2 - PCV) 02/27/1995 COVID-19 VACCINE (3 - 2023- season) 2023 11/28/2020, 10/30/2020 DTAP/TDAP/TD VACCINE (3 - Td or Tdap) 12/10/2023 12/09/2013, 03/18/2000 PHQ-2 (once per calendar year) 2024 INFLUENZA VACCINE (#1) 2024 , 12/31/2019, 12/18/2018, Additional history exists ZOSTER VACCINE (1 of 2) 02/27/2026 COLONOSCOPY 01/12/2033 01/12/2023 COLORECTAL CANCER SCREENING 01/12/2033 HEPATITIS C SCREENING Completed 04/18/2022 HIV SCREENING Completed 08/21/2024, 04/18/2022 HPV VACCINE (No Doses Required) Completed MENINGITIS VACCINE Aged Out No longer eligible based on patient's age to complete this topic Insurance BCBS OUT OF STATE BC OUT OF STATE Care Teams Rn Bsn Relationship Specialty [place] [address] [place], [place] [id number] PCP - General Family Medicine 10/03/24
--- OUTSIDE RECORDS SUMMARY | 2024-11-09 16:37 | XMS_ITS | Encounter Summary ---
Author Organization [facility] Address [address] [place] [address] Care Team Providers Care Hospital Chief Executive Officer Name Role Phone Elsewhere, Pcp Primary Care Provider Unavailabl e Reason for Visit * Reason Onset Date Comments PandaDoc Form [facility] Encounter Details Date Type Department Care Team (Latest Contact Info) Description 09/23/2024 Clinical Communication Department of Cardiovascular Diseases in [place], [place] [address] [place] [phone] Xander Byrnes M.D. [address] [place] [phone] PandaDoc Form ([facility] Cardiac Rehab Order) Social History Tobacco Use Types Packs/Day Years Used Date Smoking Tobacco: Former Cigarettes 1 2018 Smokeless Tobacco: Former Snuff Comments:Nicotine pouches Alcohol Use Standard Drinks/Week Comments Not Currently 0 (1 standard drink = 0.6 oz pur e alcohol) [facility] Utilities Answer Date Recorded In the past 12 months has th e electric, gas, oil, or water company [...] your living situation today? 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 * Telephone Encounter - Sarah Brooks - 09/23/2024 10:17 AM CDT Form was routed to Dr. Byrnes for electronic review/signature. PLANNING OFFICIAL: Amalia Richard ([facility]) PHONE NUMBER: [phone] INFO REQUESTED: Cardiac Rehab Order INSTRUCTIONS: Fax information to [phone] documented in this encounter Plan of Treatment Upcoming Encounters Date Type Department Care Team (Late st Contact Info) Description 11/18/2024 8:30 AM CDT Appointment Department of Cardiovascular Diseases in [place], [place] [address] [place] [address] Mark Mckeon M.D. [address] [place] [phone] 11/28/2024 9:30 AM CDT Appointment Department of Cardiovascular Diseases in [place], [place] [address] [place] [address] Xander Byrnes M.D. [address] [place] [phone] documented as of this encounter Visit Diagnoses Not on filedocumented in this encounter Care Teams Hospital Chief Executive Officer Relationship Specialty Start Date End Date Elsewhere, Pcp PCP - General Internal Medicine 08/21/24 documented as of this encounter
--- OUTSIDE RECORDS SUMMARY | 2024-11-09 16:37 | XMS_ITS | Encounter Summary ---
Author Organization [facility] Address [address] [place] [address] Care Team Providers Care Cephalometric Tracer Name Role Phone Elsewhere, Pcp Primary Care Provider Unavailabl e Encounter Details Date Type Department Care Team (Latest Contact Info) Description 10/22/2024 Results Follow-Up Department of Cardiovascular Diseases in [place], [place] [address] [place] [phone] Mark Mckeon M.D. [address] [place] [phone] MR Cardiac without and with IV Contrast Social History Tobacco Use Types Packs/Day Years Used Date Smoking Tobacco: Former Cigarettes 2018 Smokeless Tobacco: Former Snuff Comments:Nicotine pouches Alcohol Use Standard Drinks/Week Comments Not Currently 0 (1 standard drink = 0.6 oz pur e alcohol) [facility] Utilities Answer Date Recorded In the past 12 months has [employer], gas, oil, or water [employer] threatened to shut off services in your [...] your living situation today? 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 [address] [place] [phone] 11/28/2024 9:30 AM CDT Appointment Department of Cardiovascular Diseases in [place], [place] [address] [place] [address] Xander Byrnes M.D. [address] [place] [phone] documented as of this encounter Visit Diagnoses Not on filedocumented in this encounter Care Teams Cephalometric Tracer Relationship Specialty Start Date End Date Elsewhere, Pcp PCP - General Internal Medicine 08/21/24 documented as of this encounter
--- OUTSIDE RECORDS SUMMARY | 2024-11-09 16:37 | XMS_ITS | Encounter Summary ---
Author Organization [facility] Address [address] [place] [address] Care Team Providers Care Program Support Assistant Name Role Phone Elsewhere, Pcp Primary Care Provider Unavailabl e Encounter Details Date Type Department Care Team (Late st Contact Info) Description 10/20/2024 Results Follow-Up Department of Medical Genetics in [place], [place] [address] [place] [address] Carlos Enrique Real, Unlicensed [place] [address] [place] [address] [facility] Social History Tobacco Use Types Packs/Day Years Used Date Smoking Tobacco: Former Cigarettes 2018 Smokeless Tobacco: Former Snuff Comments:Nicotine pouches Alcohol Use Standard Drinks/Week Comments Not Currently 0 (1 standard drink = 0.6 oz pur e alcohol) [place] Utilities Answer Date Recorded In the past 12 months has [facility] [employer], gas, oil, or water [employer] threatened to shut off services in your [...] living situation today? 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 [address] [place] [phone] 11/28/2024 9:30 AM CDT Appointment Department of Cardiovascular Diseases in [place], [place] [address] [place] [address] Xander Byrnes M.D. [address] [place] [phone] documented as of this encounter Visit Diagnoses Not on filedocumented in this encounter Care Teams Program Support Assistant Relationship Specialty Start Date End Date Elsewhere, Pcp PCP - General Internal Medicine 08/21/24 documented as of this encounter
--- OUTSIDE RECORDS SUMMARY | 2024-11-09 16:37 | XMS_ITS | Encounter Summary ---
Author Organization [facility] Address [address] [place] [address] Care Team Providers Care Slip Mixer Name Role Phone Elsewhere, Pcp Primary Care Provider Unavailabl e Reason for Visit * Reason Comments CV Genetic Test Result - Negative Encounter Details Date Type Department Care Team (Late st Contact Info) Description 10/20/2024 Documentation Department of Medical Genetics in [place], [place] [address] [place] [address] Carlos Enrique Real, Unlicensed [place] [address] [place] [address] CV Genetic Test Result - Negative Social History Tobacco Use Types Packs/Day Years Used Date Smoking Tobacco: Former Cigarettes 2018 Smokeless Tobacco: Former Snuff Comments:Nicotine pouches Alcohol Use Standard Drinks/Week Comments Not Currently 0 (1 standard drink = 0.6 oz pur e alcohol) [facility] Utilities Answer Date Recorded In the past 12 months has e [employer], gas, oil, or water [employer] threatened to shut off services in your [...] living situation today? 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 CHIEF COMPLAINT Genetic Test Results. Results disclosed on behalf of Kendal Huff CGC HISTORY OF PRESENT ILLNESS Alexis was seen in [facility] due to their personal history of cardiac arrest. At thattime, they elected to pursue the Comprehensive Cardiomyopathy & Arrhythmia Panel through [facility]. These results were communicated to the patient via the portal message and letter by our genetic counseling printing assistant. IMPRESSION/REPORT/PLAN RESULTS To review, Alexis had genetic testing which included comprehensive sequencing and gross deletion/duplication analysis of 168 genes related to cardiomyopathies and arrhythmias. A full list of the genes analyzed can be found on the report. No pathogenic (disease-causing) variants were identified withthis testing. The results of the genetic testing did not identify any variants of clinical significance. It is possible that a disease-causing genetic variant exists in a gene not yet identified, or not tested for. Additionally, genetic testing has less than 100% sensitivity. Therefore, there is a small chance that there is a genetic variant that cannot be identified by current testing methodology. This resultdoes not change medical management or current diagnoses. FAMILY SCREENING Because we could not identify a genetic cause for Alexis???s clinical presentation, we will not be able to use genetic testing to screen other family members. It is unknown at this time the chance that other family members will also develop similar symptoms. Therefore, relatives should inform their physicians of their family history. Given the unclear etiology of Alexis's clinical presentation, any cardiac screening recommendationsfor the patient and their family should be directed by their managing physicians. Anyone experiencing any cardiovascular symptoms should see a ham sawyer for further evaluation. This evaluation mayinclude, but is not limited to, an ECG, echocardiogram and stress test. Family members should continue with screening as recommended by their providers. We would be happy to see family members here at [facility] or are available to identify resources closer to the individual's residence. PLAN Continued clinical care and management in regard to Alexis is deferred to their ham sawyer and other healthcare providers. Genetic testing for cardiomyopathies and arrhythmias will continue to improve over time, and it is recommended to recontact us every 3-5 years to determine if additional testing would be available. They are welcome to contact our clinic with any questions. Cosigned by Kendal Huff M.S., POOL at 10/20/2024 11:55 AM CDT documented in this encounter Plan of Treatment Upcoming Encounters Date Type Department Care Team (Late st Contact Info) Description 11/18/2024 8:30 AM CDT Appointment Department of Cardiovascular Diseases in [place], [place] [address] [place] [address] Mark Mckeon M.D. [address] [place] [phone] 11/28/2024 9:30 AM CDT Appointment Department of Cardiovascular Diseases in [place], [place] [address] [place] [phone] Xander Byrnes M.D. [address] [place] [address] documented as of this encounter Visit Diagnoses Not on filedocumented in this encounter Care Teams Slip Mixer Relationship Specialty Start Date End Date Elsewhere, Pcp PCP - General Internal Medicine 08/21/24 documented as of this encounter
--- OUTSIDE RECORDS SUMMARY | 2024-11-09 16:37 | XMS_ITS | Encounter Summary ---
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 Cardiac and Pulmonary Rehabilitation [address] [place] [phone] Xander Byrnes MD [address] [place] [phone] 11/12/2024 1:[address] [facility] Cardiac and Pulmonary Rehabilitation [address] [place] [phone] Xander Byrnes MD [address] [place] [phone] 11/14/2024 1:[address] [facility] Cardiac and Pulmonary Rehabilitation [address] [place] [phone] Xander Byrnes MD [address] [place] [phone] 11/19/2024 1:[address] [facility] Cardiac and Pulmonary Rehabilitation [address] [place] [phone] Xander Byrnes MD [address] [place] [phone] 11/21/2024 1:[address] [facility] Cardiac and Pulmonary [address] [phone] Xander Byrnes MD [address] [place] [phone] 11/24/2024 1:[address] [facility] Cardiac and Pulmonary Rehabilitation [address] [phone] Xander Byrnes MD [address] [place] [phone] 11/26/2024 1:[address] [facility] Cardiac and Pulmonary [address] [phone] Xander Byrnes MD [address] [place] [phone] 11/28/2024 3:[address] [facility] Cardiac and Pulmonary Rehabilitation [address] [place] [phone] Xander Byrnes MD [address] [place] [phone] 12/01/2024 1:[address] [facility] Cardiac and Pulmonary Rehabilitation [address] [phone] Xander Byrnes MD [address] [place] [phone] 12/03/2024 1:[address] [facility] Cardiac and Pulmonary Rehabilitation [address] [phone] Xander Byrnes MD [address] [place] [phone] 12/08/2024 1:[address] [facility] Cardiac [facility] Pulmonary Rehabilitation [address] [phone] Xander Byrnes MD [address] [place] [phone] documented as of this encounter Visit Diagnoses Not on filedocumented in this encounter Care Teams Registration Coordinator Relationship Specialty [place] [address] [place] [address] PCP - General Family Medicine 10/03/24 documented as of this encounter
--- OUTSIDE RECORDS SUMMARY | 2024-11-09 16:37 | XMS_ITS | Encounter Summary ---
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 Gender Identity Not on file Sexual Orientation Not on file documented as of this encounter Plan of Treatment Upcoming Encounters Date Type Department Care Team (Late st Contact Info) Description 11/10/2024 1:00 PM CDT Appointment [facility] Cardiac and Pulmonary Rehabilitation [address] [place] [phone] Xander Byrnes MD [address] [place] [phone] 11/12/2024 1:00 PM CDT Appointment [facility] Cardiac and Pulmonary Rehabilitation [address] [place] [phone] Xander Byrnes MD [address] [place] [phone] 11/14/2024 1:00 PM CDT Appointment [facility] Cardiac and Pulmonary Rehabilitation [address] [place] [phone] Xander Byrnes MD [address] [place] [phone] 11/19/2024 1:00 PM CDT Appointment [facility] Cardiac and Pulmonary Rehabilitation [address] [place] [phone] Xander Byrnes MD [address] [place] [address] [phone] 11/21/2024 1:00 PM CDT Appointment [facility] Cardiac and Pulmonary [address] [phone] Xander Byrnes MD [address] [place] [address] [phone] 11/24/2024 1:00 PM CDT Appointment [facility] Cardiac and Pulmonary Rehabilitation [address] [phone] Xander Byrnes MD [address] [place] [address] [phone] 11/26/2024 1:00 PM CDT Appointment [facility] Cardiac and Pulmonary [address] [phone] Xander Byrnes MD [address] [place] [address] [phone] 11/28/2024 3:00 PM CDT Appointment [facility] Cardiac and Pulmonary Rehabilitation [address] [place] [phone] Xander Byrnes MD [address] [place] [phone] 12/01/2024 1:00 PM CDT Appointment [facility] Cardiac and Pulmonary Rehabilitation [address] [phone] Xander Byrnes MD [address] [place] [phone] 12/03/2024 1:00 PM CDT Appointment [facility] Cardiac and Pulmonary Rehabilitation [address] [phone] Xander Byrnes MD [address] [place] [address] [phone] 12/08/2024 1:00 PM CDT Appointment [facility] Cardiac [facility] Pulmonary Rehabilitation [address] [phone] Xander Byrnes MD [address] [place] [phone] documented as of this encounter Visit Diagnoses Not on filedocumented in this encounter Care Teams Engine Generator Assembler Relationship Specialty [place] [address] [place] [address] PCP - General Family Medicine 10/03/24 documented as of this encounter
--- OUTSIDE RECORDS SUMMARY | 2024-11-09 16:37 | XMS_ITS | Encounter Summary ---
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 Gender Identity Not on file Sexual Orientation Not on file documented as of this encounter Plan of Treatment Upcoming Encounters Date Type Department Care Team (Late st Contact Info) Description 11/10/2024 1:00 PM CDT Appointment [facility] Cardiac and Pulmonary Rehabilitation [address] [place] [phone] Xander Byrnes MD [address] [place] [phone] 11/12/2024 1:00 PM CDT Appointment [facility] Cardiac and Pulmonary Rehabilitation [address] [place] [phone] Xander Byrnes MD [address] [place] [phone] 11/14/2024 1:00 PM CDT Appointment [facility] Cardiac and Pulmonary Rehabilitation [address] [place] [phone] Xander Byrnes MD [address] [place] [phone] 11/19/2024 1:00 PM CDT Appointment [facility] Cardiac and Pulmonary Rehabilitation [address] [place] [phone] Xander Byrnes MD [address] [place] [phone] 11/21/2024 1:00 PM CDT Appointment [facility] Cardiac and Pulmonary [address] [phone] Xander Byrnes MD [address] [place] [address] [phone] 11/24/2024 1:00 PM CDT Appointment [facility] Cardiac and Pulmonary Rehabilitation [address] [phone] Xander Byrnes MD [address] [place] [address] [phone] 11/26/2024 1:00 PM CDT Appointment [facility] Cardiac and Pulmonary [address] [phone] Xander Byrnes MD [address] [place] [phone] 11/28/2024 3:00 PM CDT Appointment [facility] Cardiac and Pulmonary Rehabilitation [address] [place] [phone] Xander Byrnes MD [address] [place] [address] [phone] 12/01/2024 1:00 PM CDT Appointment [facility] Cardiac and Pulmonary Rehabilitation [address] [phone] Xander Byrnes MD [address] [place] [phone] 12/03/2024 1:00 PM CDT Appointment [facility] Cardiac and Pulmonary Rehabilitation [address] [phone] Xander Byrnes MD [address] [place] [phone] 12/08/2024 1:00 PM CDT Appointment [facility] Pulmonary Rehabilitation [address] [phone] Xander Byrnes MD [address] [place] [phone] documented as of this encounter Visit Diagnoses Not on filedocumented in this encounter Care Teams Warp Tester Relationship Specialty [place] [address] [place] [address] PCP - General Family Medicine 10/03/24 documented as of this encounter
--- OUTSIDE RECORDS SUMMARY | 2024-11-09 16:37 | XMS_ITS | Encounter Summary ---
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 Gender Identity Not on file Sexual Orientation Not on file documented as of this encounter Plan of Treatment Upcoming Encounters Date Type Department Care Team (Late st Contact Info) Description 11/10/2024 1:00 PM CDT Appointment [facility] Cardiac and Pulmonary Rehabilitation [address] [place] [phone] Xander Byrnes MD [address] [place] [phone] 11/12/2024 1:00 PM CDT Appointment [facility] Cardiac and Pulmonary Rehabilitation [address] [place] [phone] Xander Byrnes MD [address] [place] [phone] 11/14/2024 1:00 PM CDT Appointment [facility] Cardiac and Pulmonary Rehabilitation [address] [place] [address] [phone] Xander Byrnes MD [address] [place] [phone] 11/19/2024 1:00 PM CDT Appointment [facility] Cardiac and Pulmonary Rehabilitation [address] [place] [phone] Xander Byrnes MD [address] [place] [address] [phone] 11/21/2024 1:00 PM CDT Appointment [facility] Cardiac and Pulmonary [address] [address] Xander Byrnes MD [address] [place] [address] [phone] 11/24/2024 1:00 PM CDT Appointment [facility] Cardiac and Pulmonary Rehabilitation [address] [phone] Xander Byrnes MD [address] [place] [address] [phone] 11/26/2024 1:00 PM CDT Appointment [facility] Cardiac and Pulmonary [address] [phone] Xander Byrnes MD [address] [place] [address] [phone] 11/28/2024 3:00 PM CDT Appointment [facility] Cardiac and Pulmonary Rehabilitation [address] [place] [phone] Xander Byrnes MD [address] [place] [address] [phone] 12/01/2024 1:00 PM CDT Appointment [facility] Cardiac and Pulmonary Rehabilitation [address] [address] Xander Byrnes MD [address] [place] [phone] 12/03/2024 1:00 PM CDT Appointment [facility] Cardiac and Pulmonary Rehabilitation [address] [phone] Xander Byrnes MD [address] [place] [address] [phone] 12/08/2024 1:00 PM CDT Appointment [facility] Cardiac [facility] Pulmonary Rehabilitation [address] [phone] Xander Byrnes MD [address] [place] [phone] documented as of this encounter Visit Diagnoses Not on filedocumented in this encounter Care Teams Biometrics Analyst Relationship Specialty [place] [address] [place] [address] PCP - General Family Medicine 10/03/24 documented as of this encounter
--- OUTSIDE RECORDS SUMMARY | 2024-11-09 16:37 | XMS_ITS | Encounter Summary ---
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 Gender Identity Not on file Sexual Orientation Not on file documented as of this encounter Plan of Treatment Upcoming Encounters Date Type Department Care Team (Late st Contact Info) Description 11/10/2024 1:00 PM CDT Appointment [facility] Cardiac and Pulmonary Rehabilitation [address] [place] [phone] Xander Byrnes MD [address] [place] [phone] 11/12/2024 1:00 PM CDT Appointment [facility] Cardiac and Pulmonary Rehabilitation [address] [place] [phone] Xander Byrnes MD [address] [place] [phone] 11/14/2024 1:00 PM CDT Appointment [facility] Cardiac and Pulmonary Rehabilitation [address] [place] [address] [phone] Xander Byrnes MD [address] [place] [phone] 11/19/2024 1:00 PM CDT Appointment [facility] Cardiac and Pulmonary Rehabilitation [address] [place] [phone] Xander Byrnes MD [address] [place] [address] [phone] 11/21/2024 1:00 PM CDT Appointment [facility] Cardiac and Pulmonary [address] [phone] Xander Byrnes MD [address] [place] [address] [phone] 11/24/2024 1:00 PM CDT Appointment [facility] Cardiac and Pulmonary Rehabilitation [address] [phone] Xander Byrnes MD [address] [place] [address] [phone] 11/26/2024 1:00 PM CDT Appointment [facility] Cardiac and Pulmonary [address] [phone] Xander Byrnes MD [address] [place] [address] [phone] 11/28/2024 3:00 PM CDT Appointment [facility] Cardiac and Pulmonary Rehabilitation [address] [place] [phone] Xander Byrnes MD [address] [place] [address] [phone] 12/01/2024 1:00 PM CDT Appointment [facility] Cardiac and Pulmonary Rehabilitation [address] [phone] Xander Byrnes MD [address] [place] [phone] 12/03/2024 1:00 PM CDT Appointment [facility] Cardiac and Pulmonary Rehabilitation [address] [phone] Xander Byrnes MD [address] [place] [address] [phone] 12/08/2024 1:00 PM CDT Appointment [facility] Cardiac [facility] Pulmonary Rehabilitation [address] [phone] Xander Byrnes MD [address] [place] [phone] documented as of this encounter Visit Diagnoses Not on filedocumented in this encounter Care Teams Merchandise Supervisor Relationship Specialty [place] [address] [place] [address] PCP - General Family Medicine 10/03/24 documented as of this encounter
--- OUTSIDE RECORDS SUMMARY | 2024-11-09 16:37 | XMS_ITS | Encounter Summary ---
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 Gender Identity Not on file Sexual Orientation Not on file documented as of this encounter Plan of Treatment Upcoming Encounters Date Type Department Care Team (Late st Contact Info) Description 11/10/2024 1:00 PM CDT Appointment [facility] Cardiac and Pulmonary Rehabilitation [address] [phone] Xander Byrnes MD [address] [place] [address] [phone] 11/12/2024 1:00 PM CDT Appointment [facility] Cardiac and Pulmonary Rehabilitation [address] [place] [phone] Xander Byrnes MD [address] [place] [address] [phone] 11/14/2024 1:00 PM CDT Appointment [facility] Cardiac and Pulmonary Rehabilitation [address] [place] [phone] Xander Byrnes MD [address] [place] [phone] 11/19/2024 1:00 PM CDT Appointment [facility] Cardiac and Pulmonary Rehabilitation [address] [phone] Xander Byrnes MD [address] [place] [address] [phone] 11/21/2024 1:00 PM CDT Appointment [facility] Cardiac and Pulmonary [address] [phone] Xander Byrnes MD [address] [place] [phone] 11/24/2024 1:00 PM CDT Appointment [facility] Cardiac and Pulmonary Rehabilitation [address] [phone] Xander Byrnes MD [address] [place] [address] [phone] 11/26/2024 1:00 PM CDT Appointment [facility] Cardiac and Pulmonary Rehabilitation [address] [phone] Xander Byrnes MD [address] [place] [address] [phone] 11/28/2024 3:00 PM CDT Appointment [facility] Cardiac and Pulmonary Rehabilitation [address] [phone] Xander Byrnes MD [address] [place] [address] [phone] 12/01/2024 1:00 PM CDT Appointment [facility] Cardiac and Pulmonary Rehabilitation [address] [phone] Xander Byrnes MD [address] [place] [address] [phone] 12/03/2024 1:00 PM CDT Appointment [facility] Cardiac and Pulmonary Rehabilitation [address] [phone] Xander Byrnes MD [address] [place] [phone] 12/08/2024 1:00 PM CDT Appointment [facility] Cardiac and Pulmonary Rehabilitation [address] [phone] Xander Byrnes MD [address] [place] [phone] documented as of this encounter Visit Diagnoses Not on filedocumented in this encounter Care Teams Director Foundation Relationship Specialty [place] [address] [place] [address] PCP - General Family Medicine 10/03/24 documented as of this encounter
--- OUTSIDE RECORDS SUMMARY | 2024-11-09 16:37 | XMS_ITS | Encounter Summary ---
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 Gender Identity Not on file Sexual Orientation Not on file documented as of this encounter Plan of Treatment Upcoming Encounters Date Type Department Care Team (Late st Contact Info) Description 11/10/2024 1:00 PM CDT Appointment [facility] Cardiac and Pulmonary Rehabilitation [address] [place] [phone] Xander Byrnes MD [address] [place] [phone] 11/12/2024 1:00 PM CDT Appointment [facility] Cardiac and Pulmonary Rehabilitation [address] [place] [address] [phone] Xander Byrnes MD [address] [place] [phone] 11/14/2024 1:00 PM CDT Appointment [facility] Cardiac and Pulmonary Rehabilitation [address] [place] [address] [phone] Xander Byrnes MD [address] [place] [phone] 11/19/2024 1:00 PM CDT Appointment [facility] Cardiac and Pulmonary Rehabilitation [address] [place] [phone] Xander Byrnes MD [address] [place] [address] [phone] 11/21/2024 1:00 PM CDT Appointment [facility] Cardiac and Pulmonary [address] [phone] Xander Byrnes MD [address] [place] [address] [phone] 11/24/2024 1:00 PM CDT Appointment [facility] Cardiac and Pulmonary Rehabilitation [address] [phone] Xander Byrnse MD [address] [place] [address] [phone] 11/26/2024 1:00 PM CDT Appointment [facility] Cardiac and Pulmonary [address] [phone] Xander Byrnes MD [address] [place] [address] [phone] 11/28/2024 3:00 PM CDT Appointment [facility] Cardiac and Pulmonary Rehabilitation [address] [place] [phone] Xander Byrnes MD [address] [place] [address] [phone] 12/01/2024 1:00 PM CDT Appointment [facility] Cardiac and Pulmonary Rehabilitation [address] [phone] Xander Byrnes MD [address] [place] [phone] 12/03/2024 1:00 PM CDT Appointment [facility] Cardiac and Pulmonary Rehabilitation [address] [phone] Xander Byrnes MD [address] [place] [address] [phone] 12/08/2024 1:00 PM CDT Appointment [facility] Cardiac [facility] Pulmonary Rehabilitation [address] [phone] Xander Byrnes MD [address] [place] [phone] documented as of this encounter Visit Diagnoses Not on filedocumented in this encounter Care Teams Offset Label Rewinder Relationship Specialty [place] [address] [place] [address] PCP - General Family Medicine 10/03/24 documented as of this encounter
--- OUTSIDE RECORDS SUMMARY | 2024-11-09 16:37 | XMS_ITS | Encounter Summary ---
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 Gender Identity Not on file Sexual Orientation Not on file documented as of this encounter Plan of Treatment Upcoming Encounters Date Type Department Care Team (Late st Contact Info) Description 11/10/2024 1:00 PM CDT Appointment [facility] Cardiac and Pulmonary Rehabilitation [address] [place] [phone] Xander Byrnes MD [address] [place] [phone] 11/12/2024 1:00 PM CDT Appointment [facility] Cardiac and Pulmonary Rehabilitation [address] [place] [address] [phone] Xander Byrnes MD [address] [place] [phone] 11/14/2024 1:00 PM CDT Appointment [facility] Cardiac and Pulmonary Rehabilitation [address] [place] [address] [phone] Xander Byrnes MD [address] [place] [phone] 11/19/2024 1:00 PM CDT Appointment [facility] Cardiac and Pulmonary Rehabilitation [address] [place] [phone] Xander Byrnes MD [address] [place] [address] [phone] 11/21/2024 1:00 PM CDT Appointment [facility] Cardiac and Pulmonary [address] [phone] Xander Byrnes MD [address] [place] [address] [phone] 11/24/2024 1:00 PM CDT Appointment [facility] Cardiac and Pulmonary Rehabilitation [address] [phone] Xander Byrnes MD [address] [place] [address] [phone] 11/26/2024 1:00 PM CDT Appointment [facility] Cardiac and Pulmonary [address] [phone] Xander Byrnes MD [address] [place] [address] [phone] 11/28/2024 3:00 PM CDT Appointment [facility] Cardiac and Pulmonary Rehabilitation [address] [place] [phone] Xander Byrnes MD [address] [place] [address] [phone] 12/01/2024 1:00 PM CDT Appointment [facility] Cardiac and Pulmonary Rehabilitation [address] [phone] Xander Byrnes MD [address] [place] [phone] 12/03/2024 1:00 PM CDT Appointment [facility] Cardiac and Pulmonary Rehabilitation [address] [phone] Xander Byrnes MD [address] [place] [address] [phone] 12/08/2024 1:00 PM CDT Appointment [facility] Cardiac [facility] Pulmonary Rehabilitation [address] [phone] Xander Byrnes MD [address] [place] [phone] documented as of this encounter Visit Diagnoses Not on filedocumented in this encounter Care Teams Break Out Worker Relationship Specialty [place] [address] [place] [address] PCP - General Family Medicine 10/03/24 documented as of this encounter
--- OUTSIDE RECORDS SUMMARY | 2024-11-09 16:37 | XMS_ITS | Encounter Summary ---
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 Gender Identity Not on file Sexual Orientation Not on file documented as of this encounter Plan of Treatment Upcoming Encounters Date Type Department Care Team (Late st Contact Info) Description 11/10/2024 1:00 PM CDT Appointment [facility] Cardiac and Pulmonary Rehabilitation [address] [place] [phone] Xander Byrnes MD [address] [place] [phone] 11/12/2024 1:00 PM CDT Appointment [facility] Cardiac and Pulmonary Rehabilitation [address] [place] [address] [phone] Xander Byrnes MD [address] [place] [phone] 11/14/2024 1:00 PM CDT Appointment [facility] Cardiac and Pulmonary Rehabilitation [address] [place] [address] [phone] Xander Byrnes MD [address] [place] [phone] 11/19/2024 1:00 PM CDT Appointment [facility] Cardiac and Pulmonary Rehabilitation [address] [place] [phone] Xander Byrnes MD [address] [place] [address] [phone] 11/21/2024 1:00 PM CDT Appointment [facility] Cardiac and Pulmonary [address] [phone] Xander Byrnes MD [address] [place] [address] [phone] 11/24/2024 1:00 PM CDT Appointment [facility] Cardiac and Pulmonary Rehabilitation [address] [phone] Xander Byrnes MD [address] [place] [address] [phone] 11/26/2024 1:00 PM CDT Appointment [facility] Cardiac and Pulmonary [address] [phone] Xander Byrnes MD [address] [place] [address] [phone] 11/28/2024 3:00 PM CDT Appointment [facility] Cardiac and Pulmonary Rehabilitation [address] [place] [phone] Xander Byrnes MD [address] [place] [address] [phone] 12/01/2024 1:00 PM CDT Appointment [facility] Cardiac and Pulmonary Rehabilitation [address] [phone] Xander Byrnes MD [address] [place] [phone] 12/03/2024 1:00 PM CDT Appointment [facility] Cardiac and Pulmonary Rehabilitation [address] [phone] Xander Byrnes MD [address] [place] [address] [phone] 12/08/2024 1:00 PM CDT Appointment [facility] Cardiac [facility] Pulmonary Rehabilitation [address] [phone] Xander Byrnes MD [address] [place] [phone] documented as of this encounter Visit Diagnoses Not on filedocumented in this encounter Care Teams Binder Fixer Relationship Specialty [place] [address] [place] [address] PCP - General Family Medicine 10/03/24 documented as of this encounter
--- OUTSIDE RECORDS SUMMARY | 2024-11-09 16:37 | XMS_ITS | Encounter Summary ---
Author Organization [address] [address] Care Team Providers Care Choke Setter Name Role Phone Unavailable Primary Care Provider Unavailabl e Reason for Referral * Rehab Therapy Cardiac Therapy (Routine) - Authorized Specialty Diagnoses / Procedures Referred By Nicole streeter Referred To Contact CARDIAC REHAB Diagnoses Chronic systolic heart failure (H) [address] [address] Phone: tel: Referral ID Status Reason Start Date Expiration Date V isits Requested Visits Authorized [id number] Authorized 10/03/2024 03/18/2025 36 36 Question Answer Which Procedure did the patient have? Heart Failure (Chronic Systolic) Special Programs: Outpatient Phase 2 Cardiac Rehab Program Patient Scheduling Instructions: [facility] will call you to coordinate your care as prescribed by your provider. If you don't hear from a customer service representative within 2 business days, please call . Comments Please be aware that coverage of these services is subject to the terms and limitations of your health insurance plan. Call member services at your health plan with any benefit or coverage questions. [facility] will call you to coordinate your care as prescribed by your provider. If you don't hear from a customer service representative within 2 business days, please call . 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 Gender Identity Not on file Sexual Orientation Not on file documented as of this encounter Plan of Treatment Upcoming Encounters Date Type Department Care Team (Late st Contact Info) Description 11/10/2024 1:00 PM CDT Appointment [facility] Cardiac and Pulmonary Rehabilitation [address] [phone] Xander Byrnes MD [address] [place] [phone] 11/12/2024 1:00 PM CDT Appointment [facility] Cardiac and Pulmonary Rehabilitation [address] [phone] Xander Byrnes MD [address] [place] [phone] 11/14/2024 1:00 PM CDT Appointment [facility] Cardiac and Pulmonary Rehabilitation [address] [phone] Xander Byrnes MD [address] [place] [phone] 11/19/2024 1:00 PM CDT Appointment [facility] Cardiac and Pulmonary Rehabilitation [address] [phone] Xander Byrnes MD [address] [place] [phone] 11/21/2024 1:00 PM CDT Appointment [facility] Cardiac and Pulmonary Rehabilitation [address] [phone] Xander Byrnes MD [address] [place] [phone] 11/24/2024 1:00 PM CDT Appointment [facility] Cardiac and Pulmonary Rehabilitation [address] [place] [phone] Xander Byrnes MD [address] [place] [phone] 11/26/2024 1:00 PM CDT Appointment [facility] Cardiac and Pulmonary [address] [place] [phone] Xander Byrnes MD [address] [place] [phone] 11/28/2024 3:00 PM CDT Appointment [facility] Cardiac and Pulmonary Rehabilitation [address] [place] [phone] Xander Byrnes MD [address] [place] [phone] 12/01/2024 1:00 PM CDT Appointment [facility] Cardiac and Pulmonary Rehabilitation [address] [place] [phone] Xander Byrnes MD [address] [place] [phone] 12/03/2024 1:00 PM CDT Appointment [facility] Cardiac and Pulmonary Rehabilitation [address] [place] [phone] Xander Byrnes MD [address] [place] [phone] 12/08/2024 1:00 PM CDT Appointment [facility] Cardiac and Pulmonary Rehabilitation [place] [phone] [place] [address] [address] [place] [address] Xander Byrnes MD [facility] [place] [address] Scheduled Referrals Name Type Priority Associated Diagnoses Orde r Schedule Cardiac Rehab Sales Host Referral Referral Routine Chronic systolic heart failure (H) Ordered: 09/25/2024 documented as of this encounter Visit Diagnoses Diagnosis Chronic systolic heart failure (H)- Primary Chronic systolic heart failure documented in this encounter
--- OUTSIDE RECORDS SUMMARY | 2024-11-09 16:38 | XMS_ITS | Encounter Summary ---
Author Organization [facility] Address [address] [place] [address] Care Team Providers Care Rn Ed Name Role Phone Elsewhere, Pcp Primary Care Provider Unavailabl e Reason for Referral * Behavioral Health (Routine) - Authorized Specialty Diagnoses / Procedures Referred By Nicole streeter Referred To Contact Psychiatry / Psychiatry and Psychology Diagnoses Arrest Cardiac (HCC) [facility] Phone: tel: [facility] Region Referral ID Status Reason Start Date Expiration Date Visits Requested Visits Authorized [id number] Authorized Specialty Services Required 09/05/2024 03/07/2026 1 1 Scheduling Instructions Please schedule with THOMAS Marie for telehealth visit This has been previously discussed with her. Encounter Details Date Type Department Care Team (Late st Contact Info) Description 09/05/2024 Clinical Communication [facility] [phone] Liz Carr, L.S.W. Social History Tobacco Use Types Packs/Day Years Used Date Smoking Tobacco: Former Cigarettes 1 - 2018 Smokeless Tobacco: Current Comments:Nicotine pouches Alcohol Use Standard Drinks/Week Comments Defer 0 (1 standard drink = 0.6 oz pur e alcohol) [facility] Utilities Answer Date Recorded In [...] your living situation today? I have a 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 - 09/05/2024 11:32 AM CDT SUBJECTIVE Patient is an 49 y.o. male patient recently seen at [facility] Department of Cardiology for Office Visit. A social work consult was placed following this visit as patient voiced interest in financial/ counseling resources. Social Work received follow up call from patient on this date in response to writers attempt to contact patient yesterday. Social Work introduced self and role of resource social work. Patient reported he is looking for any resources that can assist him while he is out of work recovering from his cardiac arrest he experienced earlier this month. Social Work discussed various resources such as food pantries, utility assistance. Patient reported that is exactly what I am looking for. Patient additionally discussed if there were options available for counseling as it relates to mental health and overall healthy eating counseling. Social Work discussed resources available for mental health support both within [facility] and within patients home community. Patient reported he would like to seek as much care within the [facility] as possible and repor juanito he would interested in options that would not require significant travel as he has limited endurence/ energy at this time which makes long distance travel difficult. Social Work advised that thiswriter would relay the request for Dietitian Consult to Dr. Byrnes whom is following patient withinthe Department of Cardiovascular Diseases. Patient verbalized understanding and thanked flex o writer operator for assistance Patient reported no additional immediate resource needs from flex o writer operator at this time. OBJECTIVE Problem List[1] ASSESSMENT / PLAN ASSESSMENT Orientation: Oriented to person, place and time Behavior observed: Calm and Interactive Memory: Good based on conversation Estimated intellectual functioning: Average for developmental level Status of concentration: Good based on conversation Cooperation: Cooperative Mood: Fine Affect: Within a normal range Speech: Within normal limits for volume, rate and tone. Thought process: Logical and goal-directed Thought content, auditory/visual hallucinations and/or delusions: No abnormality noted Judgement: Fair based on conversation Insight: Fair based on conversation Motivation for treatment: Adequate Safety: No imminent safety concerns INTERVENTION Provided supportive services. Provided education regarding the role of social work. Provided education regarding community resources available to address Social Drivers of Health Concerns. Applicable resources from Find Help sent to patient via portal message, per request Order Placed for Psychotherapy Clinical Communication sent to Cardiovascular provider regarding patient desire for Dietitian Consult [1] Patient Active Problem List Diagnosis Arrest Cardiac (HCC) documented in this encounter Plan of Treatment Upcoming Encounters Date Type Department Care Team (Late st Contact Info) Description 11/18/2024 8:30 AM CDT Appointment Department of Cardiovascular Diseases in [place], [place] [address] [place] [address] Mark Mckeon M.D. [address] [place] [address] [place] [address] 11/28/2024 9:30 AM CDT Appointment Department of Cardiovascular Diseases in [address] [phone] Xander Byrnes M.D. [address] [place] [address] Scheduled Referrals Name Type Priority Associated Diagnoses Order Schedule Psychiatry and Psychology - General consult (clinic) Outpatient Referral Routine Arrest Cardiac (HCC) Expected: 09/05/2024, Expires: 12/06/2025 documented as of this encounter Visit Diagnoses Diagnosis Arrest Cardiac (HCC)- Primary documented in this encounter Care Teams Rn Ed Relationship Specialty Start Date End Date Elsewhere, Pcp PCP - General Internal Medicine 08/21/24 documented as of this encounter
--- OUTSIDE RECORDS SUMMARY | 2024-11-09 16:38 | XMS_ITS | Encounter Summary ---
Author Organization [facility] Address [address] [place] [address] Care Team Providers Care Production Operations Manager Name Role Phone Elsewhere, Pcp Primary Care Provider Unavailabl e Encounter Details Date Type Department Care Team (Latest Contact Info) Description 08/27/2024 Clinical Communication Department of Cardiovascular Diseases in [place], [place] [address] [place] [phone] Taina Owens PDanisha [address] [place] [phone] Social History Tobacco Use Types Packs/Day Years Used Date Smoking Tobacco: Former Cigarettes 2018 Smokeless Tobacco: Current Comments:Nicotine pouches Alcohol Use Standard Drinks/Week Comments Defer 0 (1 standard drink = 0.6 oz pur e alcohol) [facility] Utilities Answer Date Recorded In the past 12 months has [facility] [employer], gas, oil, or water [employer] threatened to shut off services in your [...] your living situation today? 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 - 08/27/2024 3:03 PM CDT MRI is to be 6 weeks after discharge, so end of September. Then offer established long with Dr. Veronica Moore in October/November. After going to [facility], patient can follow-up with Dr. Mckeon for future appts in [place]. *Can use urgent spot as this is a post-hospital documented in this encounter Plan of Treatment Upcoming Encounters Date Type Department Care Team (Late st Contact Info) Description 11/18/2024 8:30 AM CDT Appointment Department of Cardiovascular Diseases in [place], [place] [address] [place] [address] Mark Mckeon M.D. [address] [place] [address] [place] [phone] 11/28/2024 9:30 AM CDT Appointment Department of Cardiovascular Diseases in [address] [phone] Xander Byrnes M.D. [address] [place] [phone] documented as of this encounter Visit Diagnoses Not on filedocumented in this encounter Care Teams Production Operations Manager Relationship Specialty Start Date End Date Elsewhere, Pcp PCP - General Internal Medicine 08/21/24 documented as of this encounter
--- OUTSIDE RECORDS SUMMARY | 2024-11-09 16:38 | XMS_ITS | Encounter Summary ---
Author Organization [facility] Address [address] [place] [address] Care Team Providers Care Manufacturing Baker Name Role Phone Elsewhere, Pcp Primary Care Provider Unavailabl e Reason for Referral * Outpatient (Routine) - Authorized Specialty Diagnoses / Procedures Referred By Nicole streeter Referred To Contact Diagnoses Congestive Heart Failure Ejection Fraction Less Than 35 Percent And [place] Heart Association Class 2-3 (HCC) Xander Byrnes M.D. [facility] [place] [address] Phone: tel: fax: [facility] [address] [place] [address] Phone: tel: fax: Referral ID Status Reason Start Date Expiration Date Visits Requested Visits Authorized [id number] Authorized Patient Preference 09/03/2024 03/05/2026 36 36 Reason for Visit * Reason Onset Date Comments Cardiac Rehab 08/28/2024 Encounter Details Date Type Department Care Team (Latest Contact Info) Description 08/28/2024 Clinical Communication Department of Cardiac Rehabilitation in [place], [place] [address] [place] [phone] Shahla Gomez R.N. [facility] [place] [phone] Cardiac Rehab Social History Tobacco Use Types Packs/Day Years Used Date Smoking Tobacco: Former Cigarettes 2018 Smokeless Tobacco: Current Comments:Nicotine pouches Alcohol Use Standard Drinks/Week Comments Defer 0 (1 standard drink = 0.6 oz pur e alcohol) [facility] Utilities Answer Date Recorded In the past [...] your living situation today? 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 [address] [place] [address] 11/28/2024 9:30 AM CDT Appointment Department of Cardiovascular Diseases in [place], [place] [address] [place] [phone] Xander Byrnes M.D. [address] [place] [phone] documented as of this encounter Visit Diagnoses Diagnosis Congestive Heart Failure Ejection Fraction Less Than 35 Percent And [place] Heart Association Class 2-3 (HCC)- Primary documented in this encounter Care Teams Manufacturing Baker Relationship Specialty Start Date End Date Elsewhere, Pcp PCP - General Internal Medicine 08/21/24 documented as of this encounter
--- OUTSIDE RECORDS SUMMARY | 2024-11-09 16:39 | XMS_ITS | Encounter Summary ---
Author Organization [facility] Address [address] [place] [address] Care Team Providers Care Retail Greeting Card Merchandiser Name Role Phone Elsewhere, Pcp Primary Care Provider Unavailabl e Reason for Visit * Reason Onset Date Comments MRI with Cardiac Device 08/27/2024 Encounter Details Date Type Department Care Team (Latest Contact Info) Description 08/27/2024 Clinical Communication Department of Radiology, [facility], in [place], [place] [address] [place] [phone] Taina Owens P.ASheldon-Capo [address] [place] [phone] MRI with Cardiac Device Social History Tobacco Use Types Packs/Day Years Used Date Smoking Tobacco: Former Cigarettes 2018 Smokeless Tobacco: Current Comments:Nicotine pouches Alcohol Use Standard Drinks/Week Comments Defer 0 (1 standard drink = 0.6 oz pur e alcohol) [facility] Utilities Answer Date Recorded In the past 12 months has e [employer], gas, oil, or water [employer] threatened to shut off services in your [...] your living situation today? 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 - 08/28/2024 11:[address] Byrnes, Will you please review CXR done 08/27/24 post implant and MRI has been ordered? I explained MRI could not be done until 10/08/24 as that will be 6 wks post implant. Please advise if you would like the CXR repeated. Thank you, Caitlin * Telephone Encounter - Vane Le R.N. - 08/28/2024 11:13 AM CDT PRE MRI CHECKLIST for CARDIAC DEVICES: Device MRI Conditional: YES Leads MRI Conditional: YES Implanted >6 weeks: NO (implanted 08/27/24) Implanted in pectoral region: YES Lead extenders, lead adaptors, or abandoned leads: NO Lead thresholds <2.0V/0.4ms: YES Lead impedances >200 ohms and <1500 ohms: YES Defibrillation impedance 20-200 ohms: Yes Chest X-ray within last 30 days: YES Date: 08/27/24 Patient may proceed with scheduling MRI at [facility]: YES AFTER 10/08/24 Will send CXR to Dr. Byrnes for approval. Order for device check entered. documented in this encounter Plan of Treatment Upcoming Encounters Date Type Department Care Team (Late st Contact Info) Description 11/18/2024 8:30 AM CDT Appointment Department of Cardiovascular Diseases in [place], [place] [address] [place] [address] Mark Mckeon M.D. [address] [place] [phone] 11/28/2024 9:30 AM CDT Appointment Department of Cardiovascular Diseases in [place], [place] [address] [place] [address] Xander Byrnes M.D. [address] [place] [phone] documented as of this encounter Visit Diagnoses Not on filedocumented in this encounter Care Teams Retail Greeting Card Merchandiser Relationship Specialty Start Date End Date Elsewhere, Pcp PCP - General Internal Medicine 08/21/24 documented as of this encounter
--- OUTSIDE RECORDS SUMMARY | 2024-11-09 16:39 | XMS_ITS ---
Author Organization [facility] Address [address] [place] [address] Care Team Providers Care Director Of Field Coordination Name Role Phone Elsewhere, Pcp Primary Care Provider Unavailabl e Genomics Program Status:Closed (Closed) Start date:10/08/2024 Enrollment date:10/08/2024 End date:10/20/2024 Close reason:Care Complete Overview 10/08/24 Lab: Fabián GC: Kendal Huff CGC Sample: Whole Blood Continued Care and Services Coordination
--- OUTSIDE RECORDS SUMMARY | 2024-11-09 16:41 | XMS_ITS | Encounter Summary ---
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 Gender Identity Not on file Sexual Orientation Not on file documented as of this encounter Plan of Treatment Upcoming Encounters Date Type Department Care Team (Late st Contact Info) Description 11/10/2024 1:00 PM CDT Appointment [facility] Cardiac and Pulmonary Rehabilitation [address] [place] [phone] Xander Byrnes MD [address] [place] [phone] 11/12/2024 1:00 PM CDT Appointment [facility] Cardiac and Pulmonary Rehabilitation [address] [place] [phone] Xander Byrnes MD [address] [place] [phone] 11/14/2024 1:00 PM CDT Appointment [facility] Cardiac and Pulmonary Rehabilitation [address] [place] [phone] Xander Byrnes MD [address] [place] [phone] 11/19/2024 1:00 PM CDT Appointment [facility] Cardiac and Pulmonary Rehabilitation [address] [place] [phone] Xander Byrnes MD [address] [place] [phone] 11/21/2024 1:00 PM CDT Appointment [facility] Cardiac and Pulmonary [address] [phone] Xander Byrnes MD [address] [place] [phone] 11/24/2024 1:00 PM CDT Appointment [facility] Cardiac and Pulmonary Rehabilitation [address] [phone] Xander Byrnes MD [address] [place] [phone] 11/26/2024 1:00 PM CDT Appointment [facility] Cardiac and Pulmonary [address] [phone] Xander Byrnes MD [address] [place] [phone] 11/28/2024 3:00 PM CDT Appointment [facility] Cardiac and Pulmonary Rehabilitation [address] [place] [phone] Xander Byrnes MD [address] [place] [phone] 12/01/2024 1:00 PM CDT Appointment [facility] Cardiac and Pulmonary Rehabilitation [address] [phone] Xander Byrnes MD [address] [place] [phone] 12/03/2024 1:00 PM CDT Appointment [facility] Cardiac and Pulmonary Rehabilitation [address] [phone] Xander Byrnes MD [address] [place] [phone] 12/08/2024 1:00 PM CDT Appointment [facility] Cardiac [facility] Pulmonary Rehabilitation [address] [phone] Xander Byrnes MD [address] [place] [phone] documented as of this encounter Visit Diagnoses Not on filedocumented in this encounter Care Teams Olive Picker Relationship Specialty [place] [address] [place] [address] PCP - General Family Medicine 10/03/24 documented as of this encounter
--- OUTSIDE RECORDS SUMMARY | 2024-11-09 16:41 | XMS_ITS | Encounter Summary ---
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 Gender Identity Not on file Sexual Orientation Not on file documented as of this encounter Plan of Treatment Upcoming Encounters Date Type Department Care Team (Late st Contact Info) Description 11/10/2024 1:00 PM CDT Appointment [facility] Cardiac and Pulmonary Rehabilitation [address] [place] [phone] Xander Byrnes MD [address] [place] [phone] 11/12/2024 1:00 PM CDT Appointment [facility] Cardiac and Pulmonary Rehabilitation [address] [place] [address] [phone] Xander Byrnes MD [address] [place] [phone] 11/14/2024 1:00 PM CDT Appointment [facility] Cardiac and Pulmonary Rehabilitation [address] [place] [address] [phone] Xander Byrnes MD [address] [place] [phone] 11/19/2024 1:00 PM CDT Appointment [facility] Cardiac and Pulmonary Rehabilitation [address] [place] [phone] Xander Byrnes MD [address] [place] [address] [phone] 11/21/2024 1:00 PM CDT Appointment [facility] Cardiac and Pulmonary [address] [phone] Xander Byrnes MD [address] [place] [address] [phone] 11/24/2024 1:00 PM CDT Appointment [facility] Cardiac and Pulmonary Rehabilitation [address] [phone] Xander Byrnes MD [address] [place] [address] [phone] 11/26/2024 1:00 PM CDT Appointment [facility] Cardiac and Pulmonary [address] [phone] Xander Byrnes MD [address] [place] [address] [phone] 11/28/2024 3:00 PM CDT Appointment [facility] Cardiac and Pulmonary Rehabilitation [address] [place] [phone] Xander Byrnes MD [address] [place] [address] [phone] 12/01/2024 1:00 PM CDT Appointment [facility] Cardiac and Pulmonary Rehabilitation [address] [phone] Xander Byrnes MD [address] [place] [phone] 12/03/2024 1:00 PM CDT Appointment [facility] Cardiac and Pulmonary Rehabilitation [address] [phone] Xander Byrnes MD [address] [place] [address] [phone] 12/08/2024 1:00 PM CDT Appointment [facility] Cardiac [facility] Pulmonary Rehabilitation [address] [phone] Xander Byrnes MD [address] [place] [phone] documented as of this encounter Visit Diagnoses Not on filedocumented in this encounter Care Teams Endless Track Vehicle Supervisor Relationship Specialty [place] [address] [place] [address] PCP - General Family Medicine 10/03/24 documented as of this encounter
--- OUTSIDE RECORDS SUMMARY | 2024-11-09 16:42 | XMS_ITS | Encounter Summary ---
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 Gender Identity Not on file Sexual Orientation Not on file documented as of this encounter Plan of Treatment Upcoming Encounters Date Type Department Care Team (Late st Contact Info) Description 11/10/2024 1:00 PM CDT Appointment [facility] Cardiac and Pulmonary Rehabilitation [address] [place] [phone] Xander Byrnes MD [address] [place] [phone] 11/12/2024 1:00 PM CDT Appointment [facility] Cardiac and Pulmonary Rehabilitation [address] [place] [address] [phone] Xander Byrnes MD [address] [place] [phone] 11/14/2024 1:00 PM CDT Appointment [facility] Cardiac and Pulmonary Rehabilitation [address] [place] [address] [phone] Xander Byrnes MD [address] [place] [phone] 11/19/2024 1:00 PM CDT Appointment [facility] Cardiac and Pulmonary Rehabilitation [address] [place] [phone] Xander Byrnes MD [address] [place] [address] [phone] 11/21/2024 1:00 PM CDT Appointment [facility] Cardiac and Pulmonary [address] [phone] Xander Byrnes MD [address] [place] [address] [phone] 11/24/2024 1:00 PM CDT Appointment [facility] Cardiac and Pulmonary Rehabilitation [address] [phone] Xander Byrnes MD [address] [place] [address] [phone] 11/26/2024 1:00 PM CDT Appointment [facility] Cardiac and Pulmonary [address] [phone] Xander Byrnes MD [address] [place] [address] [phone] 11/28/2024 3:00 PM CDT Appointment [facility] Cardiac and Pulmonary Rehabilitation [address] [place] [phone] Xander Byrnes MD [address] [place] [address] [phone] 12/01/2024 1:00 PM CDT Appointment [facility] Cardiac and Pulmonary Rehabilitation [address] [phone] Xander Byrnes MD [address] [place] [phone] 12/03/2024 1:00 PM CDT Appointment [facility] Cardiac and Pulmonary Rehabilitation [address] [phone] Xander Byrnes MD [address] [place] [address] [phone] 12/08/2024 1:00 PM CDT Appointment [facility] Rehabilitation [address] [phone] Xander Byrnes MD [address] [place] [phone] documented as of this encounter Visit Diagnoses Not on filedocumented in this encounter Care Teams Speed Belt Sander Tender Relationship Specialty [place] [address] [place] [address] PCP - General Family Medicine 10/03/24 documented as of this encounter
--- OUTSIDE RECORDS SUMMARY | 2024-11-09 16:42 | XMS_ITS | Encounter Summary ---
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 Gender Identity Not on file Sexual Orientation Not on file documented as of this encounter Plan of Treatment Upcoming Encounters Date Type Department Care Team (Late st Contact Info) Description 11/10/2024 1:00 PM CDT Appointment [facility] Cardiac and Pulmonary Rehabilitation [address] [place] [phone] Xander Byrnes MD [address] [place] [phone] 11/12/2024 1:00 PM CDT Appointment [facility] Cardiac and Pulmonary Rehabilitation [address] [place] [address] [phone] Xander Byrnes MD [address] [place] [phone] 11/14/2024 1:00 PM CDT Appointment [facility] Cardiac and Pulmonary Rehabilitation [address] [place] [address] [phone] Xander Byrnes MD [address] [place] [phone] 11/19/2024 1:00 PM CDT Appointment [facility] Cardiac and Pulmonary Rehabilitation [address] [place] [phone] Xander Byrnes MD [address] [place] [address] [phone] 11/21/2024 1:00 PM CDT Appointment [facility] Cardiac and Pulmonary [address] [phone] Xander Byrnes MD [address] [place] [address] [phone] 11/24/2024 1:00 PM CDT Appointment [facility] Cardiac and Pulmonary Rehabilitation [address] [phone] Xander Byrnes MD [address] [place] [address] [phone] 11/26/2024 1:00 PM CDT Appointment [facility] Cardiac and Pulmonary [address] [phone] Xander Byrnes MD [address] [place] [address] [phone] 11/28/2024 3:00 PM CDT Appointment [facility] Cardiac and Pulmonary Rehabilitation [address] [place] [phone] Xander Byrnes MD [address] [place] [address] [phone] 12/01/2024 1:00 PM CDT Appointment [facility] Cardiac and Pulmonary Rehabilitation [address] [phone] Xander Byrnes MD [address] [place] [phone] 12/03/2024 1:00 PM CDT Appointment [facility] Cardiac and Pulmonary Rehabilitation [address] [phone] Xander Byrnes MD [address] [place] [address] [phone] 12/08/2024 1:00 PM CDT Appointment [facility] Cardiac [facility] Pulmonary Rehabilitation [address] [phone] Xander Byrnes MD [address] [place] [phone] documented as of this encounter Visit Diagnoses Not on filedocumented in this encounter Care Teams Plate Drying Machine Tender Relationship Specialty [place] [address] [place] [address] PCP - General Family Medicine 10/03/24 documented as of this encounter
--- OUTSIDE RECORDS SUMMARY | 2024-11-09 16:43 | XMS_ITS | Encounter Summary ---
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 Gender Identity Not on file Sexual Orientation Not on file documented as of this encounter Plan of Treatment Upcoming Encounters Date Type Department Care Team (Late st Contact Info) Description 11/10/2024 1:00 PM CDT Appointment [facility] Cardiac and Pulmonary Rehabilitation [address] [place] [phone] Xander Byrnes MD [address] [place] [phone] 11/12/2024 1:00 PM CDT Appointment [facility] Cardiac and Pulmonary Rehabilitation [address] [place] [address] [phone] Xander Byrnes MD [address] [place] [phone] 11/14/2024 1:00 PM CDT Appointment [facility] Cardiac and Pulmonary Rehabilitation [address] [place] [address] [phone] Xander Byrnes MD [address] [place] [phone] 11/19/2024 1:00 PM CDT Appointment [facility] Cardiac and Pulmonary Rehabilitation [address] [place] [phone] Xander Byrnes MD [address] [place] [address] [phone] 11/21/2024 1:00 PM CDT Appointment [facility] Cardiac and Pulmonary [address] [phone] Xander Byrnes MD [address] [place] [address] [phone] 11/24/2024 1:00 PM CDT Appointment [facility] Cardiac and Pulmonary Rehabilitation [address] [phone] Xander Byrnes MD [address] [place] [address] [phone] 11/26/2024 1:00 PM CDT Appointment [facility] Cardiac and Pulmonary [address] [phone] Xander Byrnes MD [address] [place] [address] [phone] 11/28/2024 3:00 PM CDT Appointment [facility] Cardiac and Pulmonary Rehabilitation [address] [place] [phone] Xander Byrnes MD [address] [place] [address] [phone] 12/01/2024 1:00 PM CDT Appointment [facility] Cardiac and Pulmonary Rehabilitation [address] [phone] Xander Byrnes MD [address] [place] [phone] 12/03/2024 1:00 PM CDT Appointment [facility] Cardiac and Pulmonary Rehabilitation [address] [phone] Xander Byrnes MD [address] [place] [address] [phone] 12/08/2024 1:00 PM CDT Appointment [facility] Rehabilitation [address] [phone] Xander Byrnes MD [address] [place] [phone] documented as of this encounter Visit Diagnoses Not on filedocumented in this encounter Care Teams Type Copyist Relationship Specialty [place] [address] [place] [address] PCP - General Family Medicine 10/03/24 documented as of this encounter
--- OUTSIDE RECORDS SUMMARY | 2024-11-09 16:43 | XMS_ITS | Encounter Summary ---
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 Gender Identity Not on file Sexual Orientation Not on file documented as of this encounter Plan of Treatment Upcoming Encounters Date Type Department Care Team (Late st Contact Info) Description 11/10/2024 1:00 PM CDT Appointment [facility] Cardiac and Pulmonary Rehabilitation [address] [place] [phone] Xander Byrnes MD [address] [place] [phone] 11/12/2024 1:00 PM CDT Appointment [facility] Cardiac and Pulmonary Rehabilitation [address] [place] [address] [phone] Xander Byrnes MD [address] [place] [phone] 11/14/2024 1:00 PM CDT Appointment [facility] Cardiac and Pulmonary Rehabilitation [address] [place] [address] [phone] Xander Byrnes MD [address] [place] [phone] 11/19/2024 1:00 PM CDT Appointment [facility] Cardiac and Pulmonary Rehabilitation [address] [place] [phone] Xander Byrnes MD [address] [place] [address] [phone] 11/21/2024 1:00 PM CDT Appointment [facility] Cardiac and Pulmonary [address] [phone] Xander Byrnes MD [address] [place] [address] [phone] 11/24/2024 1:00 PM CDT Appointment [facility] Cardiac and Pulmonary Rehabilitation [address] [phone] Xander Byrnes MD [address] [place] [address] [phone] 11/26/2024 1:00 PM CDT Appointment [facility] Cardiac and Pulmonary [address] [phone] Xander Byrnes MD [address] [place] [address] [phone] 11/28/2024 3:00 PM CDT Appointment [facility] Cardiac and Pulmonary Rehabilitation [address] [place] [phone] Xander Byrnes MD [address] [place] [address] [phone] 12/01/2024 1:00 PM CDT Appointment [facility] Cardiac and Pulmonary Rehabilitation [address] [phone] Xander Byrnes MD [address] [place] [phone] 12/03/2024 1:00 PM CDT Appointment [facility] Cardiac and Pulmonary Rehabilitation [address] [phone] Xander Byrnes MD [address] [place] [address] [phone] 12/08/2024 1:00 PM CDT Appointment [facility] Cardiac [facility] Pulmonary Rehabilitation [address] [phone] Xander Byrnes MD [address] [place] [phone] documented as of this encounter Visit Diagnoses Not on filedocumented in this encounter Care Teams Citizenship Instructor Relationship Specialty [place] [address] [place] [address] PCP - General Family Medicine 10/03/24 documented as of this encounter
--- OUTSIDE RECORDS SUMMARY | 2024-11-09 16:43 | XMS_ITS | Encounter Summary ---
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 Gender Identity Not on file Sexual Orientation Not on file documented as of this encounter Plan of Treatment Upcoming Encounters Date Type Department Care Team (Late st Contact Info) Description 11/10/2024 1:00 PM CDT Appointment [facility] Cardiac and Pulmonary Rehabilitation [address] [place] [phone] Xander Byrnes MD [address] [place] [phone] 11/12/2024 1:00 PM CDT Appointment [facility] Cardiac and Pulmonary Rehabilitation [address] [place] [address] [phone] Xander Byrnes MD [address] [place] [phone] 11/14/2024 1:00 PM CDT Appointment [facility] Cardiac and Pulmonary Rehabilitation [address] [place] [address] [phone] Xander Byrnes MD [address] [place] [phone] 11/19/2024 1:00 PM CDT Appointment [facility] Cardiac and Pulmonary Rehabilitation [address] [place] [phone] Xander Byrnes MD [address] [place] [address] [phone] 11/21/2024 1:00 PM CDT Appointment [facility] Cardiac and Pulmonary [address] [phone] Xander Byrnes MD [address] [place] [address] [phone] 11/24/2024 1:00 PM CDT Appointment [facility] Cardiac and Pulmonary Rehabilitation [address] [phone] Xander Byrnes MD [address] [place] [address] [phone] 11/26/2024 1:00 PM CDT Appointment [facility] Cardiac and Pulmonary [address] [phone] Xander Byrnes MD [address] [place] [address] [phone] 11/28/2024 3:00 PM CDT Appointment [facility] Cardiac and Pulmonary Rehabilitation [address] [place] [phone] Xander Byrnes MD [address] [place] [address] [phone] 12/01/2024 1:00 PM CDT Appointment [facility] Cardiac and Pulmonary Rehabilitation [address] [phone] Xander Byrnes MD [address] [place] [phone] 12/03/2024 1:00 PM CDT Appointment [facility] Cardiac and Pulmonary Rehabilitation [address] [phone] Xander Byrnes MD [address] [place] [address] [phone] 12/08/2024 1:00 PM CDT Appointment [facility] Cardiac [facility] Pulmonary Rehabilitation [address] [phone] Xander Byrnes MD [address] [place] [phone] documented as of this encounter Visit Diagnoses Not on filedocumented in this encounter Care Teams Stummel Selector Relationship Specialty [place] [address] [place] [address] PCP - General Family Medicine 10/03/24 documented as of this encounter
--- OUTSIDE RECORDS SUMMARY | 2024-11-09 16:44 | XMS_ITS | Encounter Summary ---
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 Gender Identity Not on file Sexual Orientation Not on file documented as of this encounter Plan of Treatment Upcoming Encounters Date Type Department Care Team (Late st Contact Info) Description 11/10/2024 1:00 PM CDT Appointment [facility] Cardiac and Pulmonary Rehabilitation [address] [place] [phone] Xander Byrnes MD [address] [place] [phone] 11/12/2024 1:00 PM CDT Appointment [facility] Cardiac and Pulmonary Rehabilitation [address] [place] [address] [phone] Xander Byrnes MD [address] [place] [phone] 11/14/2024 1:00 PM CDT Appointment [facility] Cardiac and Pulmonary Rehabilitation [address] [place] [address] [phone] Xander Byrnes MD [address] [place] [phone] 11/19/2024 1:00 PM CDT Appointment [facility] Cardiac and Pulmonary Rehabilitation [address] [place] [phone] Xander Byrnes MD [address] [place] [address] [phone] 11/21/2024 1:00 PM CDT Appointment [facility] Cardiac and Pulmonary [address] [phone] Xander Byrnes MD [address] [place] [address] [phone] 11/24/2024 1:00 PM CDT Appointment [facility] Cardiac [facility] Pulmonary Rehabilitation [address] [phone] Xander Byrnes MD [address] [place] [address] [phone] 11/26/2024 1:00 PM CDT Appointment [facility] Cardiac and Pulmonary [address] [phone] Xandre Byrnes MD [address] [place] [address] [phone] 11/28/2024 3:00 PM CDT Appointment [facility] Cardiac and Pulmonary Rehabilitation [address] [place] [phone] Xnader Byrnes MD [address] [place] [address] [phone] 12/01/2024 1:00 PM CDT Appointment [facility] Card[facility] Pulmonary Rehabilitation [address] [phone] Xander Byrnse MD [address] [place] [phone] 12/03/2024 1:00 PM CDT Appointment [facility] Cardiac and Pulmonary Rehabilitation [address] [phone] Xander Byrnes MD [address] [place] [address] [phone] 12/08/2024 1:00 PM CDT Appointment [facility] Cardiac [facility] Pulmonary Rehabilitation [address] [phone] Xander Byrnes MD [address] [place] [phone] documented as of this encounter Visit Diagnoses Not on filedocumented in this encounter Care Teams Film Processing Utility Worker Relationship Specialty [place] [address] [place] [address] PCP - General Family Medicine 10/03/24 documented as of this encounter
--- OUTSIDE RECORDS SUMMARY | 2024-11-09 16:44 | XMS_ITS | Encounter Summary ---
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 Gender Identity Not on file Sexual Orientation Not on file documented as of this encounter Plan of Treatment Upcoming Encounters Date Type Department Care Team (Late st Contact Info) Description 11/10/2024 1:00 PM CDT Appointment [facility] Cardiac and Pulmonary Rehabilitation [address] [place] [phone] Xander Byrnes MD [address] [place] [phone] 11/12/2024 1:00 PM CDT Appointment [facility] Cardiac and Pulmonary Rehabilitation [address] [place] [address] [phone] Xander Byrnes MD [address] [place] [phone] 11/14/2024 1:00 PM CDT Appointment [facility] Cardiac and Pulmonary Rehabilitation [address] [place] [address] [phone] Xander Byrnes MD [address] [place] [phone] 11/19/2024 1:00 PM CDT Appointment [facility] Cardiac and Pulmonary Rehabilitation [address] [place] [phone] Xander Byrnes MD [address] [place] [address] [phone] 11/21/2024 1:00 PM CDT Appointment [facility] Cardiac and Pulmonary [address] [phone] Xander Byrnes MD [address] [place] [address] [phone] 11/24/2024 1:00 PM CDT Appointment [facility] Cardiac and Pulmonary Rehabilitation [address] [phone] Xander Byrnes MD [address] [place] [address] [phone] 11/26/2024 1:00 PM CDT Appointment [facility] Cardiac and Pulmonary [address] [phone] Xander Byrnes MD [address] [place] [address] [phone] 11/28/2024 3:00 PM CDT Appointment [facility] Cardiac and Pulmonary Rehabilitation [address] [place] [phone] Xander Byrnes MD [address] [place] [address] [phone] 12/01/2024 1:00 PM CDT Appointment [facility] Cardiac and Pulmonary Rehabilitation [address] [phone] Xander Byrnes MD [address] [place] [phone] 12/03/2024 1:00 PM CDT Appointment [facility] Cardiac and Pulmonary Rehabilitation [address] [phone] Xander Byrnes MD [address] [place] [address] [phone] 12/08/2024 1:00 PM CDT Appointment [facility] Cardiac [facility] Pulmonary Rehabilitation [address] [phone] Xander Byrnes MD [address] [place] [phone] documented as of this encounter Visit Diagnoses Not on filedocumented in this encounter Care Teams Honey Extractor Relationship Specialty [place] [address] [place] [address] PCP - General Family Medicine 10/03/24 documented as of this encounter
--- OUTSIDE RECORDS SUMMARY | 2024-11-09 16:44 | XMS_ITS | Clinical Summary ---
Author Organization [facility] Address [address] [place] [address] Care Team Providers Care Medical Staff Assistant Name Role Phone Sha Pedroza MD Primary Care Provider Allergies No known active allergies Medications Drysol 20 % external solutionIndicati ons:Hyperhidrosi s of soles APPLY TOPICALLY TO AFFECTED AREA(S) AT BEDTIME, ONCE EXCESSIVE SWEATING HAS STOPPED, MAY DECREASE TO 1-2XWEEKLY OR NEEDED. WASH TREATED AREA IN MORNING 105 mL 2 3 Active ibuprofen (ADVIL; MOTRIN) 200 mg tablet Take 200 mg by mouth every 4 hours if needed for Pain. Taken more than recommended at this time. Active sildenafil citrate (VIAGRA) 100 mg tabletIndication s:Erectile dysfunction, unspecified erectile dysfunction type Take 1 Tablet (100 mg) by mouth once daily if needed for Erectile Dysfunction. Take 30min to 4 hours before sexual activity. Max 100mg/24hr. 10 Tablet 11 4 Active lisinopriL (PRINIVIL; ZESTRIL) 20 mg tabletIndication s:Primary hypertension Take 1 Tablet (20 mg) by mouth once daily. 90 Tablet 3 4 Active aspirin chewable 81 mg chewable tablet Chew 81 mg by mouth once daily. CHEW 5 Active atorvastatin 40 mg tablet Take 40 mg by mouth at bedtime. 5 08/28/19 26 Active carvediloL 6.25 mg tablet Take 6.25 mg by mouth two times daily with meals. 5 08/28/19 Active empagliflozin 10 mg tablet Take 10 mg by mouth. 5 08/29/19 Active spironolactone 25 mg tablet Take 25 mg by mouth. 5 08/29/19 Active Active Problems Problem Noted Date Diagnosed Date Heart failure 11/07/2024 Overview (11/07/2024): 08/21/24: LVEF 23 08/27/24: BP 125/95 08/27/24: HR 65.0 /min On meds: lisinopril, sildenafil Acute systolic CHF (congestive heart failure) HTN (hypertension) 08/29/2024 Cardiac arrest 08/29/2024 Septic prepatellar bursitis 11/07/2012 Overview (11/10/2012): DATE: 11/08/2012 POSTOPERATIVE DIAGNOSIS: Probable septic prepatellar bursitis, right knee PROCEDURE: Incision and drainage, right knee prepatellar bursa, bursectomy, placement of Alberto drains times 2. Encounters Date Type Department Care Team Description 11/07/2024 9:10 AM CDT Office Visit [facility] [address] [place] [address] Sha Pedroza MD Form (short term disability) 11/06/2024 Travel 10/07/2024 Telephone [facility] [address] [place] [address] Sha Pedroza MD FYI (High PHQ-9 Score) 08/29/2024 11:15 AM CDT Office Visit [facility] [address] [place] [address] Sha Pedroza MD Hospital F/U (DOD 08/27/24 Cardiac Arrest, ICD implanted 08/26/24) 08/29/2024 Travel from Last 3 Months Immunizations Immunization Administration Dates Next Due Influenza, IIV3 (Age 6-35 mos) 12/21/2015,2014,12/10/2008 Influenza, IIV3 (Age >=3 years) 12/23/19 21,12/17/2013,12/17/2012,12/19/2011, 12/20/2010,12/21/2009 Influenza, IIV4 12/31/2019,04/17/2017 Influenza,CCIIV4 PRESERV FREE 12/18/2018 Td (Age >=7 Years) 03/18/2000 Tdap 12/09/2013 Family History Medical History Relation Name Comments Other Father , head t rauma Hypertension Mother Relation Name Status Comments Father Mother Social History Tobacco Use Types Packs/Day Years Used Date Smoking Tobacco: Former Cigarettes 1 2014 Passive Smoke Exposure: Current Smokeless Tobacco: Current Chew Tobacco Cessation:Ready to Q uit: Yes; Counseling Given: Yes Comments:Pt states he quit 11/07 (admit date) Cessation handbook provided. Alcohol Use Standard Drinks/Week Comments Not Currently 0.8 (1 standard drink = 0.6 oz p ure alcohol) 1 day a week PHQ-2 Answer Date Recorded PHQ-2 TOTAL SCORE 3 11/07/2024 Social Connections Answer Date Recorded Do you often feel lonely or isolated from those around you? 0 02/22/2024 Financial Resource Strain Answer Date R ecorded Difficulty of Paying Living Expenses 3 02/22/2024 Difficulty of Paying Living Expenses Not on file 02/22/2024 Food Insecurity Answer Date Recorded Do you worry your food will run out before you are able to buy more? 1 02/22/2024 Transportation Needs Answer Date Record ed Does lack of transportation keep you from medica l appointments? 1 02/22/2024 Does lack of transportation keep you from work, meetings or getting things that you need? 1 02/22/2024 Housing Stability Answer Date Recorded What is your housing situation today? 1 02/22/2024 Utilities Answer Date Recorded Do you have trouble paying f or utilities (for example, heat, electricity, water, phone)? 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 Not on file Not on file Not on file Obstetrics History Last Filed Vital Signs Vital Sign Reading Time Taken Comments Blood Pressure 98/70 11/07/2024 9:09 AM CDT Pulse 72 11/07/2024 9:09 AM CDT Temperature 36.7 C (98.1 F) 11/20/2012 10:50 PM CDT Respiratory Rate 24 10/02/2022 12:50 PM CDT Oxygen Saturation 100% 08/29/2024 11:20 AM CDT Inhaled Oxygen Concentration - - Weight 88.7 kg (195 lb 9.6 oz) 11/07/2024 9:09 A M CDT Height 184 cm (6' 0.44) 11/07/2024 9:09 AM CDT Body Mass Index 26.21 11/07/2024 9:09 AM CDT Plan of Treatment Health Maintenance Due Date Last Done Comments Hepatitis B series for 19+ ( 1 of 3 - 19+ 3-dose series) 02/27/1995 Pneumococcal series for age 6-49 (1 of 2 - PCV) 02/27/1995 Lipids for age 45-75 02/27/2021 COVID-19 vaccine series (2023- season) 2023 11/28/2020, 10/30/2020 Tetanus booster 12/10/2023 12/09/2013, 03/18/2000 Influenza Vaccine (#1) 2024 , 12/31/2019, 12/18/2018, Additional history exists BMI (ht and wt on same day) for age 18+ 11/07/2025 11/07/2024, 02/22/2024, 06/19/2022, Additional history exists Depression screening for age 12+ 11/07/2025 11/07/2024, 04/21/2022, 04/18/2022, Additional history exists Colonoscopy through age 75 01/12/2033 01/12/2023 HIV for age 15-65 Completed 04/18/2022 Hepatitis C screening for ag e 18-79 Completed 04/18/2022 Goals Goal Patient Goal Type Associated Problems Recent Progress Patient-Stated? Author BLOOD PRESSURE - MAINTAINS BP less than 140/90 Blood Pressure No Eli Billings PA Procedures Procedure Name Priority Date/Time Associated Diagnosis Comments CBC WITH AUTO DIFFERENTIAL Routine 11/07/2024 10:10 AM CDT Cardiac arrest (HC) Vascular disease ANCA PANEL FOR VASCULITIS Routine 11/07/2024 10:10 AM CDT Cardiac arrest (HC) Vascular disease CBC WITH AUTO DIFFERENTIAL Routine 11/07/2024 10:10 AM CDT Cardiac arrest (HC) Vascular disease SCAN-COLONOSCOPY 01/12/2023 3:30 PM CDT LC HIV-1/O/2, 4TH GENERATION Routine 04/18/2022 1:32 PM SALES ROUTE DRIVER Wellness examination LC HCV ANTIBODY RFX TO QUANT PCR Routine 04/18/2022 1:32 PM SALES ROUTE DRIVER Wellness examination from Last 3 Months or Most Recently Relevant to Health Maintenance Results * CBC WITH AUTO DIFFERENTIAL (11/07/2024 10:10 AM CDT) WHITE BLOOD CELL COUNT 7.0 3.8 - 10.8 Thousand/u L 11/08/2024 2:35 AM CDT [facility] RED BLOOD CELL COUNT 4.99 4.20 - 5.80 Million/uL 11/08/2024 2:35 AM CDT [facility] HEMOGLOBIN 15.5 13.2 - 17.1 g/dL 11/08/2024 2:35 AM CDT [facility] HEMATOCRIT 46.5 38.5 - 50.0 % 11/08/2024 2:35 AM CDT [facility] MCV 93.2 80.0 - 100.0 fL 11/08/2024 2:35 AM CDT [facility] MCH 31.1 27.0 - 33.0 pg 11/08/2024 2:35 AM CDT [facility] MCHC 33.3 32.0 - 36.0 g/dL 11/08/2024 2:35 AM CDT [facility] Comment: For adults, a slight decrease in the calculated MCHC value (in the range of 30 to 32 g/dL) is most likely not clinically significant; however, it should be interpreted with caution in correlation with other red cell parameters and the patient's clinical condition. RDW 14.4 11.0 - 15.0 % 11/08/2024 2:35 AM CDT [facility] PLATELET COUNT 290 140 - 400 Thousand/u L 11/08/2024 2:35 AM CDT [facility] MPV 8.4 7.5 - 12.5 fL 11/08/2024 2:35 AM CDT [facility] NEUTROPHILS 60 % 11/08/2024 2:35 AM CDT [facility] LYMPHOCYTES 29.2 % 11/08/2024 2:35 AM CDT [facility] MONOCYTES 9.8 % 11/08/2024 2:35 AM CDT [facility] EOSINOPHILS 0.6 % 11/08/2024 2:35 AM CDT [facility] BASOPHILS 0.4 % 11/08/2024 2:35 AM CDT [facility] ABSOLUTE NEUTROPHILS 4200 1500 - 7800 cells/uL 11/08/2024 2:35 AM CDT [facility] ABSOLUTE LYMPHOCYTES 2044 850 - 3900 cells/uL 11/08/2024 2:35 AM CDT [facility] ABSOLUTE MONOCYTES 686 200 - 950 cells/uL 11/08/2024 2:35 AM CDT [facility] ABSOLUTE EOSINOPHILS 42 15 - 500 cells/uL 11/08/2024 2:35 AM CDT [facility] ABSOLUTE BASOPHILS 28 0 - 200 cells/uL 11/08/2024 2:35 AM CDT [facility] Blood BLOOD SPECIMEN / Unknown [facility] / Unknown 11/07/2024 10:10 AM CDT 11/07/2024 10:10 AM CDT us Sha Pedroza MD HEMATOLOGY Final Resul t [facility] [place] [id number] [place] [address], * ANCA PANEL FOR VASCULITIS (11/07/2024 10:10 AM CDT) Pathologist [facility] ANCA SCREEN NEGATIVE NEGATIVE 11/08/2024 12:49 PM CDT [facility] Comment: ANCA screen uses indirect immunofluorescence to detect antibodies to neutrophil cytoplasmic antigens. A positive screen reflexes to titer and pattern. Patterns include cytoplasmic (c-ANCA) and perinuclear (p-ANCA) both of which are associated with vasculitis, and atypical p-ANCA which is associated with inflammatory bowel disease and other disorders. Blood BLOOD SPECIMEN / Unknown [facility] / Unknown 11/07/2024 10:10 AM CDT 11/07/2024 10:10 AM CDT us Sha Pedroza MD SEND OUTS Final Resul t [facility] [address] [place] [address], * SCAN-COLONOSCOPY (01/12/2023 3:30 PM CDT) Narrative Procedure Note Rakesh Ceja MBBS - 01/12/2023 2:37 PM CDT [facility] [address] [facility], [address], [place] [address] Patient Name: Alexis Dennis Gender: Male Exam Date: 01/12/2023 Visit Number: [id number] Age: 47 Years Date of : 1975 Attending MD: Rakesh Ceja MD Medical Record#: [id number] Procedure: Colonoscopy Indications: Family history of colon cancer in patient's half brother.Age diagnosed: 60 and older. Referring MD: Referral Self Primary MD: No Primary Medications: Admitting Medications: 0.9% Normal Saline at [facility] Intra Procedure Medications: Patient received monitored anesthesia care. Complications: No immediate complications Procedure: An examination of the heart and lungs was performed and found to be withinacceptable limits. . The patient was therefore deemed a reasonablecandidate for endoscopy and sedation. The risks and benefits of the procedure were explained to the patient.After obtaining informed consent, the patient received monitoredanesthesia care and I passed the scope without difficulty via the rectum to the ileum. The appendiceal orificeand ic valve were identified. The scope was retroflexed during theexamination The quality of the prep was good (Adal/Gat Split). This was a complete examination throughout the entire colon. Findings: Normal finding. Location - ileum. Polyp location: ascending colon. Quantity: 1. Size: 6 mm. Polyp shape:sessile. Maneuver: polypectomy was performed with a cold snare. Removal: complete. Retrieval: complete. Bleeding: none. Polyp location: transverse colon. Quantity: 1. Size: 3 mm. Polyp shape:sessile. Maneuver: polypectomy was performed with a cold snare . Removal: complete. Retrieval: complete. Bleeding: none. Diverticulosis. Location: - sigmoid. No inflammation present. Hemorrhoids. Internal hemorrhoids without bleeding. Impression: Colorectal polyps Hemorrhoids, internal Diverticulosis of colon without diverticulitis Preliminary Plan: Repeat colonoscopy in 5 years Pathology Results: A: COLON, ASCENDING, POLYP: 1. Tubular adenoma 2. Negative for high grade dysplasia 3. Per the colonoscopy report: a. Polyp size: 6 mm b. Resection: Complete c. Retrieval: Complete B: COLON, TRANSVERSE, POLYP: 1. Tubular adenoma 2. Negative for high grade dysplasia 3. Per the colonoscopy report: a. Polyp size: 3 mm b. Resection: Complete c. Retrieval: Complete MICROSCOPIC A: Performed B: Performed Electronically signed by: Mane [place] [address] Orders Instruction(s)/Education: Instruction/Education Timeframe Assessment Colon Cancer Prevention K63.5 Colon Polyps K63.5 Diverticulosis/Diverticulitis K63.5 Hemorrhoids (Internal) K63.5 High Fiber Diet K63.5 Final Plan: Repeat colonoscopy in 5 years. We will attempt to contact you at appropriate intervals via U.S. mail. Wemay not be able to find you or contact you at that time, therefore youshould know that the responsibility for following our recommendation restswith you. If you don't hear from us at the time your procedure is due,please contact our office to schedule an appointment. If your contactinformation should change, please contact our office so that we can updateyour record. _Electronically signed by: Rakesh Ceja MD 01/12/2023 cc: No Primary us Rakesh Barragan Marcial MBBS OTHER Final R esult * LC HCV ANTIBODY RFX TO QUANT PCR (04/18/2022 1:32 PM SALES ROUTE DRIVER) Pathologist [facility] HCV Ab <0.1 0.0 - 0.9 s/co ratio 04/20/2022 10:06 PM SALES ROUTE DRIVER [facility] ([facility]) Blood BLOOD SPECIMEN / Unknown Venipuncture / Unknown 04/18/2022 1:32 PM SALES ROUTE DRIVER 04/18/2022 1:33 PM SALES ROUTE DRIVER Narrative [facility] - 04/20/2022 10:06 PM SALES ROUTE DRIVER Performed at: [address] [place] [id number] Director Enterprise Data Architecture: Cole Booker MD, Phone: [phone] Sha Pedroza MD LABORATORY Final Resul t Performing Organization Address City/[facility] Co de Phone Number [facility] ([facility]) [address] [place] [address] * HIV-1/O/2, 4TH GENERATION (04/18/2022 1:32 PM SALES ROUTE DRIVER) [facility] HIV Scr 4th Gen Non Reactive Non Reactive 04/20/2022 10:07 PM SALES ROUTE DRIVER [facility] ([facility]) Comment: HIV Negative HIV-1/HIV-2 antibodies and HIV-1 p24 antigen were NOT detected. There is no laboratory evidence of HIV infection. Blood BLOOD SPECIMEN / Unknown Venipuncture / Unknown 04/18/2022 1:32 PM SALES ROUTE DRIVER 04/18/2022 1:33 PM SALES ROUTE DRIVER Narrative [facility] ([facility]) - 04/20/2022 10:07 PM SALES ROUTE DRIVER Performed at: [address] [place] [address] [id number] Director Enterprise Data Architecture: Cole Booker MD, Phone: [phone] Sha Pedroza MD LABORATORY Final Resul t Performing Organization Address City/[facility] Co de Phone Number [facility] ([facility]) [address] [place] [address], from Last 3 Months or Most Recently Relevant to Health Maintenance Insurance BLUE CROSS OF NON-FL-ITS Advance Directives * Full Code (Latest Code Status on File) Date Activated Date Inactivated Comments 11/07/2012 5:10 PM 11/11/2012 12:25 PM Care Teams Medical Staff Assistant Relationship Specialty [place] [address] [place], [place] [id number] PCP - General Family Practice 06/07/22
--- NOTE | 2024-11-09 16:59 | ED_ITS ---
HPI - General Adult General Chief complaint: Urogenital Problems, Male Stated complaint: hot/cold flashes, maybe UTI Time Seen by Provider: 11/09/24 16:35 Source: patient Mode of arrival: ambulatory Limitations: no limitations History of Present Illness HPI narrative: 49-year-old male presenting today with difficulty with urination. States that for 2 days he feels like he has to go frequently but only a little bit of urine comes out. He denies any abdominal pain. No flank pain. No pelvic or perineal pain. Denies any blood in his urine. Denies fevers but feels alternating hot and cold flashes, no rigors or shivering. Denies nausea or vomiting. No diarrhea or constipation. No shortness of breath or chest pain. Patient feels dizzy, especially when he goes from a sitting to a standing position. Patient suffered an [id number] cardiac arrest in August of this year and has had significant cardiac workup. He was seen the [address] [facility] were at that time he was endorsing continued fatigue and dizziness again especially with standing. It was discussed that that time that if his symptoms persisted that he should have his medications adjusted. Blood pressure at that time was 95/60. Past medical history significant for hypertension and out of hospital cardiac arrest. Patient is former smoker quit approximately 5 years ago. Does use marijuana regularly. Drinks alcohol occasionally. 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 Lisinopril 20 mg daily, spironolactone 25 mg daily, atorvastatin 40 mg daily, carvedilol 6.25 mg p.o. b.i.d., Jardiance 10 mg p.o. daily Related Data Home Medications ?Medication ?Instructions ?Recorded ?Confirmed lisinopril 10 mg tablet 10 mg PO DAILY 09/11/2308/18 atorvastatin 40 mg tablet 40 mg PO QPM 11/09/24 carvedilol 6.25 mg tablet 6.25 mg PO BID 11/09/2410/18 empagliflozin 10 mg tablet 10 mg PO QAM 11/09/2411/09 (Jardiance) lisinopril 20 mg tablet 20 mg PO DAILY 11/09/2410/18 spironolactone 25 mg tablet 25 mg PO DAILY 11/09/24 Previous Rx's ?Medication ?Instructions ?Recorded cyclobenzaprine 10 mg tablet 10 mg PO .COMPLEX #10 tab s 09/11/23 prednisone 20 mg tablet See Rx Instructions PO QDAY Neck 09/11/23 pain #12 tabs Allergies Allergy/AdvReac Type Severity Reaction Status Date / Time No Known Drug Allergies Allergy Verified 09/11/23 12:07 Review of Systems Status of ROS: Reports: 10 or more systems reviewed and unremarkable except as noted in History and below [facility] Social History service: No Exam Narrative: Exam Narrative: Well-nourished well-developed patient, appears very uncomfortable. Keeps his eyes closed most of the time. Alert and oriented x3. Answers questions appropriately. Thoughts are goal oriented and rational. No tangential or magical thinking noted. Patient speaks in full sentences without needing to catch his breath. HEENT: Normocephalic atraumatic. Pupils are equally round reactive to light. Extraocular muscles are intact. Conjunctivae are moist without any icterus noted. Moist mucous membranes. Posterior pharynx is normal. Neck is soft without any lymphadenopathy or thyromegaly. No masses are appreciated. Cardiovascular: Heart is regular rate and rhythm S1 and S2 are present without any murmurs. Lungs: Clear to auscultation bilaterally no wheezes rhonchi or rales are appreciated. Patient takes deep breaths without any discomfort. Abdomen: Soft and nontender nondistended with normal bowel sounds. No guarding or rebound. No CVA tenderness. Extremities: Bilateral lower extremities are without edema. Normal DP and PT pulses. Skin: Well perfused without any obvious rashes. Warm dry and intact. Const: Vital Signs, click to edit/add: Vital Signs - 24 hr 11/09/24 16:47 11/09/24 16:59 11/09/24 17:00 Temperature 98.4 F Pulse Rate Pulse Rate [Pulse Oximeter] 101 H Pulse Rate [orthos tatic lying] Pulse Rate [orthos tatic sitting] Pulse Rate [orthos tatic standing] Respiratory Rate 20 14 Blood Pressure 113/72 Blood Pressure [Ri ght Upper Arm] 96/64 Blood Pressure [or thostatic lying Le ft Arm] Blood Pressure [or thostatic sitting Left Arm] Blood Pressure [or thostatic standing Left Arm] Pulse Oximetry 95 96 Oxygen Delivery Me thod Room Air 11/09/24 17:00 11/09/24 17:01 11/09/24 17:15 Temperature Pulse Rate 81 Pulse Rate [Pulse Oximeter] Pulse Rate [orthos tatic lying] Pulse Rate [orthos tatic sitting] Pulse Rate [orthos tatic standing] Respiratory Rate 15 15 17 Blood Pressure 105/69 Blood Pressure [Ri ght Upper Arm] Blood Pressure [or thostatic lying Le ft Arm] Blood Pressure [or thostatic sitting Left Arm] Blood Pressure [or thostatic standing Left Arm] Pulse Oximetry 98 Oxygen Delivery Me thod 11/09/24 17:16 11/09/24 17:23 11/09/24 17:25 Temperature Pulse Rate 81 83 88 Pulse Rate [Pulse Oximeter] Pulse Rate [orthos tatic lying] Pulse Rate [orthos tatic sitting] Pulse Rate [orthos tatic standing] Respiratory Rate 18 18 20 Blood Pressure 101/64 98/59 L 103/63 Blood Pressure [Ri ght Upper Arm] Blood Pressure [or thostatic lying Le ft Arm] Blood Pressure [or thostatic sitting Left Arm] Blood Pressure [or thostatic standing Left Arm] Pulse Oximetry 98 98 88 Oxygen Delivery Me thod 11/09/24 17:26 11/09/24 17:30 11/09/24 17:31 Temperature Pulse Rate 86 83 Pulse Rate [Pulse Oximeter] Pulse Rate [orthos tatic lying] Pulse Rate [orthos tatic sitting] Pulse Rate [orthos tatic standing] Respiratory Rate 17 18 16 Blood Pressure 94/54 L 107/60 Blood Pressure [Ri ght Upper Arm] Blood Pressure [or thostatic lying Le ft Arm] Blood Pressure [or thostatic sitting Left Arm] Blood Pressure [or thostatic standing Left Arm] Pulse Oximetry 100 99 Oxygen Delivery Me thod 11/09/24 17:35 11/09/24 17:45 11/09/24 17:47 Temperature Pulse Rate 83 84 Pulse Rate [Pulse Oximeter] Pulse Rate [orthos tatic lying] 78 Pulse Rate [orthos tatic sitting] 89 Pulse Rate [orthos tatic standing] 107 H Respiratory Rate 14 14 Blood Pressure 105/57 L Blood Pressure [Ri ght Upper Arm] Blood Pressure [or thostatic lying Le ft Arm] 98/59 L Blood Pressure [or thostatic sitting Left Arm] 103/63 Blood Pressure [or thostatic standing Left Arm] 94/54 L Pulse Oximetry 97 97 Oxygen Delivery Me thod 11/09/24 18:00 11/09/24 18:01 11/09/24 18:15 Temperature Pulse Rate 85 84 83 Pulse Rate [Pulse Oximeter] Pulse Rate [orthos tatic lying] Pulse Rate [orthos tatic sitting] Pulse Rate [orthos tatic standing] Respiratory Rate 13 14 20 Blood Pressure 95/59 L Blood Pressure [Ri ght Upper Arm] Blood Pressure [or thostatic lying Le ft Arm] Blood Pressure [or thostatic sitting Left Arm] Blood Pressure [or thostatic standing Left Arm] Pulse Oximetry 98 97 98 Oxygen Delivery Me thod 11/09/24 18:17 11/09/24 18:25 Temperature 99.7 F H Pulse Rate 84 Pulse Rate [Pulse Oximeter] Pulse Rate [orthos tatic lying] Pulse Rate [orthos tatic sitting] Pulse Rate [orthos tatic standing] Respiratory Rate 17 Blood Pressure 98/60 Blood Pressure [Ri ght Upper Arm] Blood Pressure [or thostatic lying Le ft Arm] Blood Pressure [or thostatic sitting Left Arm] Blood Pressure [or thostatic standing Left Arm] Pulse Oximetry 98 Oxygen Delivery Me thod Course Course ED Course: EKG, read by me, shows normal sinus rhythm with a pulse of 86. Normal QRS, QTC and DE intervals. IV established, IV fluids ordered. No evidence of orthostatic hypotension however patient's pulse did go from 89 to 107 between sitting and standing. CBC does show a white count of 13.6, 81% neutrophils. Sodium is slightly low at 133, electrolytes otherwise unremarkable with normal renal function. Total bilirubin is elevated at 4.4 direct bilirubin normal at 0.2. LFTs are elevated with an AST of 39 and ALT of 118. On the of this month patient's AST was 39 and ALT was 110. CRP elevated at 8.1. Normal lactate. Urinalysis grossly positive for signs of infection including 1+ blood, trace leukocyte esterase, 10-25 wbc's with WBC clumps. Glucose also present in the urine, serum glucose 126 today, not fasting. Pulse normalized shortly after arrival and remained in the 80s after fluids. Blood pressure largely unchanged. Patient received 1 dose of IV Zosyn while he was here. Vital Signs Vital signs: Initial Vital Signs Temperature 98.4 F 11/09/24 16:47 Temperature Source Oral 11/09/24 16:47 Pulse Rate 101 H 11/09/24 16:47 Respiratory Rate 20 11/09/24 16:47 Blood Pressure 96/64 11/09/24 16:47 Blood Pressure Mean 74 11/09/24 16:47 Pulse Oximetry 95 11/09/24 16:47 Oxygen Delivery Method Room Air 11/09/24 16:47 Vital Signs Temperature 98.4 F 11/09/24 16:47 Pulse Rate 101 H 11/09/24 16:47 Respiratory Rate 20 11/09/24 16:47 Blood Pressure 96/64 11/09/24 16:47 Pulse Oximetry 95 11/09/24 16:47 Oxygen Delivery Method Room Air 11/09/24 16:47 Temperature 99.7 F H 11/09/24 18:25 Pulse Rate 84 11/09/24 18:17 Respiratory Rate 17 11/09/24 18:17 Blood Pressure 98/60 11/09/24 18:17 Pulse Oximetry 98 11/09/24 18:17 Oxygen Delivery Method Room Air 11/09/24 16:47 Medications Administered Medications: Discontinued Medications Generic Name Dose Route Start Last Admin Trade Name Freq PRN Reason Stop Dose Admin Sodium Chloride 1,000 mls @ 1,000 mls/hr 11/09/24 17:15 11/09/24 17:30 0.9 % Sodium Chloride 1000 Ml IV 11/09/24 18:14 1,000 mls/hr .Q1H YVES Administration Piperacillin Sod/Tazobactam 100 mls @ 200 mls/hr 11/09/24 18:02 11/09/24 18:20 Sod 3.375 gm/ Sodium Chloride IVPB 11/09/24 18:03 200 mls/hr ONCE ONE Administration Medical Decision Making MDM Narrative Medical decision making narrative: 49-year-old male with a UTI. At this time I would classify this as a simple UTI despite the patient's low blood pressure which has been unchanged over the last month. Fatigue he is feeling has also been present for over a month. He has no flank or back pain. No rigors or rigors, he is afebrile. He is able to tolerate p.o. intake. He does not have an elevated lactate. At this point will treat with Macrobid 100 mg p.o. b.i.d. Recommend follow-up in 24-48 hours. Follow-up sooner if symptoms are getting worse. Cut lisinopril in half. We did discuss hospitalization versus outpatient treatment and patient feels comfortable doing outpatient treatment at this time. Does not wish to be hospitalized. Lab Data Lab results reviewed: Yes I reviewed the patient's lab results Labs: Lab Results 11/09/24 11/09/24 11/09/24 Range/Units 17:00 17:02 17:28 WBC 13.60 H (4.50-11.00) K/uL RBC 4.50 (4.30-5.90) m/uL Hgb 14.0 (13.5-17.5) gm/dL Hct 39.8 (37.0-53.0) % MCV 88 (80-100) fL MCH 31 (26-34) pg MCHC 35 (32-36) gm/dL RDW Coeff of Justin 13.5 (11.5-15.5) % Plt Count 251 (140-440) K/uL Neut % (Auto) 81.3 H (42.0-72.0) % Lymph % (Auto) 10.5 L (20-44) % [place] % (Auto) 7.9 (0.0-11.0) % Eos % (Auto) 0.0 (0.0-7.0) % Baso % (Auto) 0.1 (0.0-3.0) % Neut # (Auto) 11.10 H (1.7-7.0) K/uL Lymph # (Auto) 1.40 (0.90-2.90) K/uL [place] # (Auto) 1.10 H (0.00-0.90) K/UL Eos # (Auto) 0.00 (0.00-0.50) K/uL Baso # (Auto) 0.00 (0.00-0.30) K/uL Abs Immat Gran (auto) 0.00 (0.00-0.30) K/uL Imm/Tot Granulo (auto) 0.2 % Sodium 133 L (135-149) mmol/L Potassium 4.3 (3.6-5.1) mmol/L Chloride 99 (96-114) mmol/L Carbon Dioxide 23 (20-32) mmol/L Anion Gap 11 (7-15) mEq/L BUN 22 (5-24) mg/dL Creatinine 1.2 (0.5-1.5) mg/dL Estimated Creat Clear 82.63 Estimated GFR 75 ml/min Glucose 126 H (60-115) mg/dL Lactate 1.8 (0.5-1.9) mmol/L Calcium 10.3 (8.4-10.6) mg/dL Magnesium 2.0 (1.5-2.6) mg/dL Total Bilirubin 4.4 H (0.1-1.5) mg/dL Direct Bilirubin 0.2 (0.0-0.5) mg/dL AST 39 H (12-35) U/L ALT 118 H (4-50) U/L Alkaline Phosphatase 63 (40-150) U/L Troponin I < 0.01 (0.01-0.04) ng/mL C-Reactive Protein 8.1 H (0.5-1.0) mg/dL Total Protein 8.3 (6.0-8.3) g/dL Albumin 4.9 (3.3-5.0) g/dL Urine Color Yellow (Yellow) Urine Appearance Clear (Clear) Urine pH 6.0 (5.0-8.5) Ur Specific Irene 1.015 (1.000-1.030) Urine Protein 1+ A (Negative) Urine Glucose (UA) 2+ A (Negative) Urine Ketones Negative (Negative) Urine Blood 1+ A (Negative) Urine Nitrite Negative (Negative) Urine Bilirubin Negative (Negative) Urine Urobilinogen 0.2 (0.2-1.0) Ur Leukocyte Esterase Trace A (Negative) Urine RBC 2-5 A (0-2) Urine WBC 10-25 A (0-5) Urine WBC Clumps Few A (None) Ur Squamous Epith Cells Few (None-Few) Urine Bacteria Few A (None) SARS-CoV-2 (PCR) Negative SARS-CoV-2 (Negative) Monoscreen Negative (Negative) Influenza Type A (PCR) Negative PCR FLU A (Negative) Influenza Type B (PCR) Negative PCR FLU B (Negative) POC Troponin I 0.00 L (0.01-0.04) ng/ml ECG Data Attestation: I personally reviewed and interpreted this ECG as follows: Discharge Plan Discharge Clinical Impression: Urinary tract infection, Low blood pressure, Elevated bilirubin Patient Disposition: Home, Self-Care Condition: Stable Instructions: Urinary Tract Infection in Men (DC) Additional Instructions: Take all antibiotics as prescribed. Recommend you follow-up with your primary care provider in 24-48 hours. You should have your total blood counts and your bilirubin levels rechecked at this time. Return to the emergency department if you develop vomiting, inability to void, abdominal pain, increased lethargy or a fever. Take 1st antibiotic dose this evening before bed. Your blood pressures have been running quite low for over a month, I recommend decreasing lisinopril from 20 mg daily to 10 mg daily. Macrobid sent to [facility]. Prescriptions: No Action lisinopril 10 mg tablet 10 mg PO DAILY prednisone 20 mg tablet See Rx Instructions PO QDAY Qty: 12 0RF Rx Instructions: 3 po as single dose days 1-2, 2 po as single dose days 3-4, 1 po days 5-6, then discontinue. cyclobenzaprine 10 mg tablet 10 mg PO .COMPLEX Qty: 10 0RF Rx Instructions: 10 mg orally 1 po at hs; atorvastatin 40 mg tablet 40 mg PO QPM carvedilol 6.25 mg tablet 6.25 mg PO BID lisinopril 20 mg tablet 20 mg PO DAILY spironolactone 25 mg tablet 25 mg PO DAILY Jardiance 10 mg tablet 10 mg PO QAM Follow Up/Referrals: Provider,Not a Local [Primary Care Provider, Family Practice] Stand Alone Forms: [employer] Info Instructions
[2024-11-09 17:15] LABS: Troponin, Point-of-Care* 0.00 ng/ml (0.01-0.04)
[2024-11-09 17:17] LABS: Lactate* 1.8 mmol/L (0.5-1.9)
[2024-11-09 17:24] LABS: Hematocrit 39.8 % (37.0-53.0); Hemoglobin* 14.0 gm/dL (13.5-17.5); Immature Granulocytes Pct Auto 0.2 %; Mean Corpuscular HGB Conc 35 gm/dL (32-36); Mean Corpuscular Hemoglobin 31 pg (26-34); Mean Corpuscular Volume 88 fL (80-100); RDW Coefficient of Variation % 13.5 % (11.5-15.5); Red Blood Count 4.50 m/uL (4.30-5.90); White Blood Count* 13.60 K/uL (4.50-11.00)
[2024-11-09 17:29] LABS: Immature Granulocytes Abs Auto 0.00 K/uL (0.00-0.30); Lymphocytes Absolute Auto 1.40 K/uL (0.90-2.90); Slide Review Reflex No
[2024-11-09 17:42] LABS: Appearance Urine Clear (Clear)
[2024-11-09 17:44] LABS: Albumin* 4.9 g/dL (3.3-5.0); Chloride* 99 mmol/L (96-114)
[2024-11-09 17:45] LABS: Potassium* 4.3 mmol/L (3.6-5.1); Sodium* 133 mmol/L (135-149)
[2024-11-09 17:47] LABS: Blood Urea Nitrogen* 22 mg/dL (5-24); Creatinine* 1.2 mg/dL (0.5-1.5); Est. Creatinine Clearance* 82.63; Estimated Glomerular Filt Rate 75 ml/min
[2024-11-09 17:48] LABS: Alanine Aminotransferase* 118 U/L (4-50); Alkaline Phosphatase* 63 U/L (40-150); Anion Gap 11 mEq/L (7-15); Aspartate Amino Transferase* 39 U/L (12-35); Bilirubin Direct* 0.2 mg/dL (0.0-0.5); Bilirubin Total* 4.4 mg/dL (0.1-1.5); Calcium* 10.3 mg/dL (8.4-10.6); Carbon Dioxide* 23 mmol/L (20-32); Glucose* 126 mg/dL (60-115); Total Protein* 8.3 g/dL (6.0-8.3)
[2024-11-09 18:06] LABS: Mono Screen* Negative (Negative)
[2024-11-09] MEDS: PIPERACILLIN/TAZOBACTAM 3.375 GM in 0.9 % SODIUM CHLORIDE Mini-bag 100 ML IVPB (18:20)
[2024-11-09 18:34] LABS: PCR FLU A Negative PCR FLU A (Negative); PCR FLU B Negative PCR FLU B (Negative); SARS PCR* Negative SARS-CoV-2 (Negative)
[2024-11-09 20:42] LABS: Chlamydia DNA Amplified* NOT DETECTED (No Detected); GC DNA Amplified* NOT DETECTED (No Detected)
== END 2024-11-09 20:01 | disposition home or self-care (01) ==
PROVIDERS: Emergency Provider Family Medicine
DX: N39.0 Urinary tract infection, site not specified (principal); E80.7 Disorder of bilirubin metabolism, unspecified; R03.0 Elevated blood-pressure reading, without diagnosis of hypertension
CPT/HCPCS: 36415; 80048; 80076; 81001; 83605; 83735; 84484; 85025; 86140; 86308; 87040; 87086; 87491; 87591; 87631; 93005; 94761; 96365; 99284; J2543; J7030